=== PATIENT | male | born 1965 | race Caucasian/White ===

== ENCOUNTER 2021-03-03 17:31 | Emergency (ER) | payer MEDICARE, SELFPAY ==
[2021-03-03 17:39] VITALS: BP 158/90; PULSE 77; RESP 16; TEMP 36.9; O2SAT 99
--- NOTE | 2021-03-03 19:35 | ED.GENADULT ---
HPI - General Adult General Chief complaint: Recheck/Abnormal Lab/Rx Stated complaint: hip pain out of oxycodone Time Seen by Provider: 03/03/21 19:07 Source: patient and RN notes reviewed Mode of arrival: ambulatory Limitations: no limitations History of Present Illness HPI narrative: Patient is a 55-year-old male who presents to emergency department for evaluation of being out of his narcotic pain medication that he takes for chronic right hip pain patient is followed by Dr. Abrams who is currently in the hospital notes that the office directed him to the emergency department given that they cannot fill his medication patient has a pain contract signed with his doctor and has been on these chronic medications patient denies any other complaints or recent illness and is otherwise resting comfortably in the room in no distress Related Data Allergies Allergy/AdvReac Type Severity Reaction Status Date / Time cephalexin [From Keflex] Allergy Unknown Verified 03/03/21 18:56 diazepam [From Valium] Allergy Unknown Verified 03/03/21 18:56 Sulfa (Sulfonamide Allergy Unknown Verified 03/03/21 18:56 Antibiotics) Review of Systems Review of Systems: All systems reviewed & are unremarkable except as noted in HPI and below PMFSH Past Medical History Medical History (Updated 03/03/21 @ 19:43 by Daniel Russell PA-C) Chronic pain Tobacco abuse Surgical History Surgical History (Updated 03/03/21 @ 19:37 by Daniel Russell PA-C) History of colostomy History of orthopedic surgery Social History Social History (Updated 03/03/21 @ 19:38 by Daniel Russell PA-C) Smoking status: Current every day smoker Exam Narrative: Exam Narrative: GENERAL: Chronically ill-appearing, well-nourished, and in no acute distress. HEAD: Normocephalic, atraumatic. EYES: PERRLA and EOMI. ENT: Nares clear, no rhinorrhea or epistaxis. Mucous membranes moist. CHEST: Clear to auscultation. No respiratory distress. No wheezes rales or rhonchi HEART: Regular rate and rhythm. No murmur heard. Normal peripheral pulses. ABDOMEN: Soft, nontender, nondistended EXTREMITIES: Normal range of motion. No edema. SKIN: Warm, dry, no rash. NEURO: No focal deficits. Alert and oriented x3. Cranial nerves II through XII grossly intact PSYCH: Normal mood and affect. Course Course Emergency Course: Patient will be turned back to primary care for further evaluation is aware of discussion with primary care Vital Signs Vital signs: Vital Signs Temperature 98.5 F 03/03/21 17:39 Pulse Rate 77 03/03/21 17:39 Respiratory Rate 16 03/03/21 17:39 Blood Pressure 158/90 H 03/03/21 17:39 Pulse Oximetry 99 03/03/21 17:39 Temperature 98.5 F 03/03/21 17:39 Pulse Rate 77 03/03/21 17:39 Respiratory Rate 16 03/03/21 17:39 Blood Pressure 158/90 H 03/03/21 17:39 Pulse Oximetry 99 03/03/21 17:39 Medical Decision Making MDM Narrative Medical decision making narrative: Patient in the room in no distress aware of case findings treatment plan and diagnosis agreeing to follow-up as directed Vital Signs Vital Signs: Vital Signs Temperature 98.5 F 03/03/21 17:39 Pulse Rate 77 03/03/21 17:39 Respiratory Rate 16 03/03/21 17:39 Blood Pressure 158/90 H 03/03/21 17:39 Pulse Oximetry 99 03/03/21 17:39 Temperature 98.5 F 03/03/21 17:39 Pulse Rate 77 03/03/21 17:39 Respiratory Rate 16 03/03/21 17:39 Blood Pressure 158/90 H 03/03/21 17:39 Pulse Oximetry 99 03/03/21 17:39 Discharge Plan Discharge Clinical Impression: Encounter for medication refill Patient Disposition: Home, Self-Care Condition: Stable Instructions: Antibiotic Form, Medicine Refill (ED) Additional Instructions: Follow up with your primary care doctor tommorrow for discussion of your narcotic pain refill. Go to ER for worsening pain, nausea/vomitting, fever/chills, chest pain, shortness of breath, blood in stools or urine,
[2021-03-03] MEDS: HYDROcodone/acetaminophen (*CRX) 7.5-325 MG TABLET 1 TAB PO (19:53)
== END 2021-03-03 19:55 | disposition home or self-care (01) ==
PROVIDERS: PCP Family Medicine
DX: Z76.0 Encounter for issue of repeat prescription (principal); F17.210 Nicotine dependence, cigarettes, uncomplicated; M25.551 Pain in right hip; G89.29 Other chronic pain
CPT/HCPCS: 99283; A9270

== ENCOUNTER 2021-03-04 11:19 | Emergency (ER) | payer MEDICARE, SELFPAY ==
[2021-03-04 11:27] VITALS: BP 154/89; PULSE 85; RESP 20; TEMP 36.9; O2SAT 99
--- NOTE | 2021-03-04 12:36 | ED.GENADULT ---
HPI - General Adult General Chief complaint: Recheck/Abnormal Lab/Rx Stated complaint: pain med refill Time Seen by Provider: 03/04/21 12:08 Source: patient and RN notes reviewed Mode of arrival: ambulatory Limitations: no limitations History of Present Illness HPI narrative: Patient is a 55-year-old male with chronic health issues that notes he would like to have his narcotic pain medication filled states that his doctor is currently in the hospital he has been unable to get his pain medicine filled has all his other medicines filled was seen in the ER last night for the same thing. It was explained to the patient that he has a pain contract with his primary care and should utilize them to get this medication he has no other complaints presents per private vehicle in no distress patient takes the medicine for chronic hip pain amongst other chronic issues Related Data Home Medications Medication Instructions Recorded Confirmed buspirone mg 03/03/21 methocarbamol mg 03/03/21 omeprazole 03/03/21 ondansetron HCl 03/03/21 oxycodone-acetaminophen 03/03/21 prednisone 03/03/21 risperidone mg 03/03/21 Allergies Allergy/AdvReac Type Severity Reaction Status Date / Time cephalexin [From Keflex] Allergy Unknown Verified 03/04/21 11:35 diazepam [From Valium] Allergy Unknown Verified 03/04/21 11:35 Sulfa (Sulfonamide Allergy Unknown Verified 03/04/21 11:35 Antibiotics) Review of Systems Review of Systems: All systems reviewed & are unremarkable except as noted in HPI and below PMFSH Past Medical History Medical History Chronic pain Tobacco abuse Surgical History Surgical History History of colostomy History of orthopedic surgery Social History Social History Smoking status: Current every day smoker Exam Narrative: Exam Narrative: GENERAL: Well-appearing, well-nourished, and in no acute distress. HEAD: Normocephalic, atraumatic. EYES: PERRLA and EOMI. ENT: Nares clear, no rhinorrhea or epistaxis. Mucous membranes moist. CHEST: Clear to auscultation. No respiratory distress. No wheezes rales or rhonchi HEART: Regular rate and rhythm. No murmur heard. Normal peripheral pulses. ABDOMEN: Soft, nontender, nondistended EXTREMITIES: Normal range of motion. No edema. SKIN: Warm, dry, no rash. NEURO: No focal deficits. Alert and oriented x3. PSYCH: Normal mood and affect. Course Course Emergency Course: Patient evaluated to follow with his primary care doctor agrees to do so felt appropriate for outpatient reevaluation ABCs and vital signs intact and stable Vital Signs Vital signs: Vital Signs Temperature 98.5 F 03/04/21 11:27 Pulse Rate 85 03/04/21 11:27 Respiratory Rate 20 03/04/21 11:27 Blood Pressure 154/89 H 03/04/21 11:27 Pulse Oximetry 99 03/04/21 11:27 Temperature 98.5 F 03/04/21 11:27 Pulse Rate 85 03/04/21 11:27 Respiratory Rate 20 03/04/21 11:27 Blood Pressure 154/89 H 03/04/21 11:27 Pulse Oximetry 99 03/04/21 11:27 Medical Decision Making MDM Narrative Medical decision making narrative: Patient in the room no distress redirected to primary care for discussion of filling his pain medication Vital Signs Vital Signs: Vital Signs Temperature 98.5 F 03/04/21 11:27 Pulse Rate 85 03/04/21 11:27 Respiratory Rate 20 03/04/21 11:27 Blood Pressure 154/89 H 03/04/21 11:27 Pulse Oximetry 99 03/04/21 11:27 Temperature 98.5 F 03/04/21 11:27 Pulse Rate 85 03/04/21 11:27 Respiratory Rate 03/04/21 11:27 Blood Pressure 154/89 H 03/04/21 11:27 Pulse Oximetry 99 03/04/21 11:27 Discharge Plan Discharge Clinical Impression: Encounter for medication refill Patient Disposition: Home, Self-Care Condition: Stable Instructions: Antibiotic Form,
--- NOTE | 2021-03-04 13:00 | PC.NURSE ---
patient not found in room at this time for discharge instructions of exit vital signs.
== END 2021-03-04 13:02 | disposition home or self-care (01) ==
PROVIDERS: Emergency Provider Emergency Medicine; PCP Family Medicine
DX: M25.559 Pain in unspecified hip (principal); G89.29 Other chronic pain; F17.200 Nicotine dependence, unspecified, uncomplicated
CPT/HCPCS: 99281

== ENCOUNTER 2021-03-07 08:34 | Emergency (ER) | payer MEDICARE, SELFPAY ==
[2021-03-07 08:32] VITALS: BP 130/82; PULSE 58; RESP 18; TEMP 36.9; O2SAT 99
--- NOTE | 2021-03-07 08:42 | ED.BACK ---
HPI - Back Pain/Injury General Chief Complaint: Unspecified Stated Complaint: body pain History of Present Illness HPI Narrative: 55 yo male w/ h/o arthritis presents to the ED for pain. He reports pain throughout his entire body. This is his usual pain. He is chronically on norco. His PCP is in the hospital and has not been able to refill his prescriptions. He now has nausea, vomiting and diarrhea as well. Related Data Home Medications Medication Instructions Recorded Confirmed omeprazole 03/03/21 ondansetron HCl 03/03/21 oxycodone-acetaminophen 03/03/21 prednisone 03/03/21 Allergies Allergy/AdvReac Type Severity Reaction Status Date / Time cephalexin [From Keflex] Allergy Swelling Verified 03/07/21 08:41 of Lip/Tongue/Throat diazepam [From Valium] Allergy Depression Verified 03/07/21 08:41 Sulfa (Sulfonamide Allergy Swelling Verified 03/07/21 08:41 Antibiotics) of Lip/Tongue/Throat Review of Systems Review of Systems: All systems reviewed & are unremarkable except as noted in HPI and below Constitutional: Constitutional: Denies fever(s) ENT: Denies dizziness Cardiovascular: Cardiovascular: Denies chest pain Respiratory: Respiratory: Denies dyspnea Gastrointestinal: Gastrointestinal: Reports as per HPI Genitourinary: Genitourinary: Reports no additional male genitourinary complaints Musculoskeletal: Musculoskeletal: Reports back pain, Reports myalgias and Reports arthralgias Neurologic: Denies dizziness and Denies weakness PMF Past Medical History Medical History Chronic pain Tobacco abuse Surgical History Surgical History History of colostomy History of orthopedic surgery Social History Social History Smoking status: Current every day smoker Gender identity (if verbalized by the patient): Male Exam Const: General: no acute distress and alert Orientation/consciousness: patient oriented x3 HENMT: Head: normal to inspection Neck: Neck: normal visual inspection Resp: Effort & Inspection: normal respiratory effort Auscultation: clear to auscultation bilaterally Cardio: Rate: regular rate Rhythm: regular rhythm GI: Inspection: non-distended Auscultation: Hyperactive bowel sounds present Skin: General skin exam: normal color Neuro: General: patient oriented x3 and moves all extremities Speech: normal speech Extrem: Other: extensive severe arthritis Course Vital Signs Vital signs: Vital Signs Temperature 36.9 C 03/07/21 08:32 Pulse Rate 58 L 03/07/21 08:32 Respiratory Rate 18 03/07/21 08:32 Blood Pressure 130/82 03/07/21 08:32 Pulse Oximetry 99 03/07/21 08:32 Temperature 36.9 C 03/07/21 08:32 Pulse Rate 88 03/07/21 11:55 Respiratory Rate 18 03/07/21 11:55 Blood Pressure 124/72 03/07/21 11:55 Pulse Oximetry 99 03/07/21 11:55 MDM - Back Pain/Injury MDM Narrative Medical decision making narrative: He has severe arthritis. I can confirm that his PCP is unavailable and not refilling prescriptions. On the registry it does not appear that he is getting them elsewhere. He is currently in withdrawal. I will provide a short term supply at a lower frequency to prevent withdrawal and give some relief. Medical Records Attestation: I reviewed the patient's medical records. Discharge Plan Discharge Clinical Impression: Arthritis Patient Disposition: Home, Self-Care Condition: Stable Instructions: Arthritis (ED) Prescriptions: New hydrocodone-acetaminophen 10-325 mg tablet 1 tablet PO Q6H PRN (Reason: pain) Qty: 1 RF: 0 hydrocodone-acetaminophen 10-325 mg tablet 1 tablet PO .q8 PRN (Reason: pain) Qty: 20 RF: 0 No Action ondansetron HCl 4 mg tablet RF: 0 prednisone 5 mg tablet RF: 0 oxy
[2021-03-07] MEDS: SODIUM CHLORIDE 0.9% IV 1,000 ML 999 ML IV CONT (09:03)
[2021-03-07] MEDS: ONDANSETRON INJ 4 MG/2 ML VIAL IV PUSH (09:03)
[2021-03-07] MEDS: HYDROcodone/acetaminophen (*CRX) 10-325 MG TABLET 1 TAB PO (09:04)
[2021-03-07 10:35] VITALS: BP 125/91; PULSE 59; RESP 16; O2SAT 100
[2021-03-07 11:55] VITALS: BP 124/72; PULSE 88; RESP 18; O2SAT 99
== END 2021-03-07 12:07 | disposition home or self-care (01) ==
PROVIDERS: Emergency Provider Emergency Medicine; PCP Family Medicine
DX: M19.90 Unspecified osteoarthritis, unspecified site (principal); G89.29 Other chronic pain; F17.200 Nicotine dependence, unspecified, uncomplicated
CPT/HCPCS: 96361; 96374; 99284; A9270; J2405; J7030

== ENCOUNTER 2021-03-11 02:14 | Emergency (ER) | payer MEDICARE, SELFPAY ==
[2021-03-11 02:23] VITALS: BP 147/83; PULSE 70; RESP 20; TEMP 36.6; O2SAT 100
--- NOTE | 2021-03-11 02:24 | ED.GENADULT ---
HPI - General Adult General Chief complaint: Unspecified Stated complaint: pain all over - need hydrocodone refilled Time Seen by Provider: 03/11/21 02:16 History of Present Illness HPI narrative: 55 yo male with h/o chronic pain due to arthritis presents to the ED for a medication refill. His PCP has been out of the office and unable to fill prescriptions. I saw him 3 days ago and gave him a 1 week supply. he now returns having taken all of them. Related Data Home Medications Medication Instructions Recorded Confirmed omeprazole 03/03/21 ondansetron HCl 03/03/21 oxycodone-acetaminophen 03/03/21 prednisone 03/03/21 Allergies Allergy/AdvReac Type Severity Reaction Status Date / Time cephalexin [From Keflex] Allergy Swelling Verified 03/07/21 08:41 of Lip/Tongue/Throat diazepam [From Valium] Allergy Depression Verified 03/07/21 08:41 Sulfa (Sulfonamide Allergy Swelling Verified 03/07/21 08:41 Antibiotics) of Lip/Tongue/Throat Review of Systems Review of Systems: All systems reviewed & are unremarkable except as noted in HPI and below PMFSH Past Medical History Medical History Chronic pain Tobacco abuse Surgical History Surgical History History of colostomy History of orthopedic surgery Social History Social History Smoking status: Current every day smoker Gender identity (if verbalized by the patient): Male Exam Const: General: no acute distress, alert and awake Nutritional Appearance: thin Orientation/consciousness: patient oriented x3 HENMT: Head: normal to inspection Eyes: General: appearance normal, both eyes and all related structures Resp: Effort & Inspection: normal respiratory effort Skin: General skin exam: normal color Wounds: no wounds Extrem: Other: severe arthritis Course Vital Signs Vital signs: Vital Signs Temperature 36.6 C 03/11/21 02:23 Pulse Rate 70 03/11/21 02:23 Respiratory Rate 20 03/11/21 02:23 Blood Pressure 147/83 H 03/11/21 02:23 Pulse Oximetry 100 03/11/21 02:23 Temperature 36.6 C 07/29/21 02:23 Pulse Rate 64 03/11/21 02:40 Respiratory Rate 14 03/11/21 02:40 Blood Pressure 133/85 03/11/21 02:40 Pulse Oximetry 100 03/11/21 02:40 Medical Decision Making MDM Narrative Medical decision making narrative: He is narcotic dependent. I prescribed a small supply at less than his usual dose to help prevent withdrawal and provide some relief until his PCP is able to resume his prescription. He took more than I prescribed. I will not be providing any further prescriptions. Medical Records Medical records reviewed: Yes I reviewed the external patient's medical records. Vital Signs Vital Signs: Vital Signs Temperature 36.6 C 03/11/21 02:23 Pulse Rate 70 03/11/21 02:23 Respiratory Rate 20 03/11/21 02:23 Blood Pressure 147/83 H 03/11/21 02:23 Pulse Oximetry 100 03/11/21 02:23 Temperature 36.6 C 03/11/21 02:23 Pulse Rate 64 03/11/21 02:40 Respiratory Rate 14 03/11/21 02:40 Blood Pressure 133/85 03/11/21 02:40 Pulse Oximetry 100 03/11/21 02:40 Discharge Plan Discharge Clinical Impression: Chronic pain Patient Disposition: Home, Self-Care Condition: Stable Instructions: Chronic Pain (ED) Prescriptions: No Action hydrocodone-acetaminophen 10-325 mg tablet 1 tablet PO Q6H PRN (Reason: pain) Qty: 1 RF: 0 hydrocodone-acetaminophen 10-325 mg tablet 1 tablet PO .q8 PRN (Reason: pain) Qty: 20 RF: 0 ondansetron HCl 4 mg tablet RF: 0 prednisone 5 mg tablet RF: 0 oxycodone-acetaminophen 10-325 mg tablet RF: 0 omeprazole 20 mg capsule,delayed release(DR/EC) RF: 0 Follow-up/Referrals: Jose Alberto,Darshana Ty MD [Non-Staff] -
[2021-03-11 02:40] VITALS: BP 133/85; PULSE 64; RESP 14; O2SAT 100
== END 2021-03-11 02:40 | disposition home or self-care (01) ==
PROVIDERS: Emergency Provider Emergency Medicine
DX: G89.29 Other chronic pain (principal); F17.200 Nicotine dependence, unspecified, uncomplicated; M19.90 Unspecified osteoarthritis, unspecified site
CPT/HCPCS: 99281

== ENCOUNTER 2021-05-07 15:23 | Emergency (ER) | payer MEDICARE, SELFPAY ==
--- NOTE | ~2021-05-07 | XR_ITS ---
EXAMINATION: XR ankle LT min 3V DATE: 05/07/2021 21:07 INDICATION: Posterior left ankle pain and swelling TECHNIQUE: Anteroposterior, oblique, mortise, and lateral views of the left ankle were obtained. COMPARISON: None. FINDINGS: No fracture. Pes planus with severe osteoarthritis at the talonavicular and calcaneocuboid joints. Mi ld tibiotalar osteoarthritis and at the profiled portion of the subtalar joint. No cortical erosions. No ankle joint effusion. Diffuse osteopenia. IMPRESSION: 1. 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 Reviewed, dictated and finalized at location A.
--- NOTE | ~2021-05-07 | CT_ITS ---
EXAMINATION: CT abdomen pelvis w con DATE: 05/07/2021 21:14 INDICATION: Nausea, vomiting and abdominal pain. TECHNIQUE: Computed tomography (CT) of the abdomen and pelvis was performed with 100 mL Omnipaque-350 intravenous contrast. Automated exposure control and iterative reconstruction technique were employe d. The dose-length product was 242.97 mGy-cm. COMPARISON: None FINDINGS: Mild emphysema at the lung bases. Heart size is normal. Atherosclerotic coronary artery calcific loca tion. No pericardial or pleural effusion. Liver, gallbladder, spleen, pancreas, bilateral adrenal gla nds and kidneys are normal. Bladder is normal. Short segment of small bowel extends into a small dire ct right inguinal hernia. Left lower quadrant ostomy. No dilated bowel to suggest obstruction. No raiza e intraperitoneal gas or fluid. No pathologically enlarged abdominal or pelvic lymphadenopathy. There is calcified atherosclerosis of the aorta and many of the other arteries. Likely ankylosing spondyli tis with bridging syndesmophytes at the visualized lower thoracic and upper lumbar spine, ankylosis a cross the bilateral sacroiliac joints and multiple thoracic and lumbar facet joints. Advanced osteoar thritis at the right hip and mild osteoarthritis at the left hip. IMPRESSION: 1. Small right direct inguinal hernia containing short segment of nonobstructed small bowel. 2. Skeletal findings as detailed above consistent with ankylosing spondylitis. Reviewed, dictated and finalized at location A.
[2021-05-07 15:49] VITALS: BP 131/77; PULSE 73; RESP 18; TEMP 36.8; O2SAT 100
[2021-05-07 17:31] LABS: Basophils Absolute Auto 0.1 K/mm3 (0.0-0.1); Basophils Percent Auto 1.1 % (0.2-1.2); Eosinophils Absolute Auto 0.8 K/mm3 (0-0.3); Eosinophils Percent Auto 9.8 % (0-4.4); Hemoglobin 12.3 g/dL (14.0-18.0); Immature Granulocyte Absolute 0.02 K/mm3 (0.00-0.031); Immature Granulocyte Percent A 0.2 % (0-0.5); Lymphocytes Absolute Auto 1.37 K/mm3 (0.9-3.2); Lymphocytes Percent Auto 16.5 % (18.3-44.2); Mean Corpuscular HGB Conc 31.5 g/dl (32-36); Mean Corpuscular Hemoglobin 30.1 pg (26-34); Mean Corpuscular Volume 95.6 fl (80-100); Mean Platelet Volume 10.4 fl (7.4-10.4); Monocytes Absolute Auto 0.5 K/mm3 (0.1-0.6); Monocytes Percent Auto 5.4 % (2.6-8.5); Neutrophils Absolute Auto 5.5 K/mm3 (1.3-6.7); Platelet Count Result 290 k/mm3 (150-375); Red Blood Count 4.08 M/mm3 (4.6-6.20); Red Cell Distribution Width 14.4 % (11.5-14.5); White Blood Count 8.3 K/mm3 (4.5-10.0)
[2021-05-07 17:40] LABS: Alanine Aminotransferase 15 U/L (4-50); Albumin Level 4.7 g/dL (3.5-5.1); Alkaline Phosphatase 91 U/L (38-126); Anion Gap 10 mmol/L (8-16); Aspartate Amino Transferase 21 U/L (17-59); Bilirubin,Total 0.5 mg/dL (0.2-1.3); Blood Urea Nitrogen 17 mg/dL (9-20); Calcium 9.8 mg/dL (8.4-10.2); Carbon Dioxide 29 mmol/L (22-30); Chloride 104 mmol/L (98-107); Estimated CRCL calculation 88 ml/min; Estimated Glomerular Filt Rate > 60; Glucose 77 mg/dL (65-110); Lipase 78 U/L (23-300); Potassium 3.9 mmol/L (3.4-5.0); Sodium 143 mmol/L (137-145)
[2021-05-07 17:55] LABS: Add Urine Microscopic? NO; Appearance Urine Clear (Clear); Bilirubin Urine Negative (Negative); Blood Urine Negative (Negative); Color Urine Yellow (Yellow); Glucose Urine UA Negative (Negative); Ketones Urine Negative (Negative); Leukocyte Esterase Ur Negative LEU/UL (Negative); Nitrate Urine Negative (Negative); Protein Urine Negative (Negative); Specific Grav Ur 1.014 (1.001-1.035); Urobilinogen Urine Negative mg/dL (<2.0)
--- NOTE | 2021-05-07 21:17 | PC.NURSE ---
colostomy bag applied.
--- NOTE | 2021-05-07 21:23 | ED.GENADULT ---
HPI - General Adult General Chief complaint: Nausea/Vomiting/Diarrhea Stated complaint: dizziness/vomiting Time Seen by Provider: 05/07/21 19:56 Source: patient Mode of arrival: EMS Limitations: no limitations History of Present Illness HPI narrative: Patient with history of 2 colon surgeries and colostomy presents with chief complaint of nausea vomiting for 2 days. Patient reports that he ran out of colostomy bags. patient states that he is also having diffuse abdominal pain. Patient reports being diagnosed with a urinary tract infection 1 week ago at [place]. Patient is also upset because his primary care provider stopped his oxycodone and his xanax prescriptions. He states he has pain all over from rheumatoid arthritis and wants his medications back. He also reports pain to his left ankle with mild swelling. He denies recent falls. Related Data Home Medications Medication Instructions Recorded Confirmed omeprazole 03/03/21 ondansetron HCl 03/03/21 oxycodone-acetaminophen 03/03/21 prednisone 03/03/21 Allergies Allergy/AdvReac Type Severity Reaction Status Date / Time cephalexin [From Keflex] Allergy Swelling Verified 03/07/21 08:41 of Lip/Tongue/Throat diazepam [From Valium] Allergy Depression Verified 03/07/21 08:41 Sulfa (Sulfonamide Allergy Swelling Verified 03/07/21 08:41 Antibiotics) of Lip/Tongue/Throat Review of Systems Review of Systems: CONSTITUTIONAL: Denies fever, chills, or sweats. EYES: Denies visual changes, redness, or discharge. ENT: Denies rhinorrhea, congestion, sore throat, or otalgia. CARDIOVASCULAR: Denies chest pain, palpitations, or edema. RESPIRATORY: Denies cough or dyspnea. GASTROINTESTINAL: Reports abdominal pain, nausea, vomiting declines diarrhea. GENITOURINARY: Denies dysuria or hematuria. SKIN: Denies rash or itching. MUSCULOSKELETAL: Reports left ankle pain denies back pain, joint pain, or myalgia. NEUROLOGIC: Denies headache, numbness, dizziness, or weakness. PSYCHIATRIC: Denies anxiety or depression. [facility] Past Medical History Medical History Chronic pain Tobacco abuse Surgical History Surgical History History of colostomy History of orthopedic surgery Social History Social History Smoking status: Current every day smoker Gender identity (if verbalized by the patient): Male Exam Narrative: GENERAL: unkempt, well-nourished, and in no acute distress. HEAD: Normocephalic, atraumatic. EYES: PERRLA and EOMI. CHEST: Clear to auscultation. No respiratory distress. No wheezes rales or rhonchi HEART: Regular rate and rhythm. No murmur heard. Normal peripheral pulses. ABDOMEN: Soft, nontender, nondistended, normal active bowel sounds. Colostomy noted to left side of abdomen. With grocery bag on top. EXTREMITIES: Normal range of motion. Mild swelling vs chronically deformed left ankle/foot. No erythema or signs of acute injury. Onychomycosis of nails. SKIN: Warm, dry, no rash. NEURO: No focal deficits. Alert and oriented x3. PSYCH: Normal mood and affect. Course Vital Signs Vital signs: Vital Signs Temperature 98.2 F 05/07/21 15:49 Pulse Rate 73 05/07/21 15:49 Respiratory Rate 18 05/07/21 15:49 Blood Pressure 131/77 05/07/21 15:49 Pulse Oximetry 100 05/07/21 15:49 Temperature 98.2 F 05/07/21 15:49 Pulse Rate 73 05/07/21 15:49 Respiratory Rate 18 05/07/21 15:49 Blood Pressure 131/77 05/07/21 15:49 Pulse Oximetry 100 05/07/21 15:49 Medical Decision Making MDM Narrative Medical decision making narrative: Patient is sleeping upon my entering of the room. When he wakes he demands morphine. Patient's physical exam is not consistent with the need for morphine. His complaints are inconsistent. He rambles about how his chronic pain
[2021-05-07 22:19] VITALS: BP 129/71; PULSE 72; RESP 18; O2SAT 99
== END 2021-05-07 22:24 | disposition home or self-care (01) ==
PROVIDERS: Emergency Provider Emergency Medicine
DX: Z76.5 Malingerer [conscious simulation] (principal); Z93.3 Colostomy status; M06.9 Rheumatoid arthritis, unspecified; F17.200 Nicotine dependence, unspecified, uncomplicated; M19.072 Primary osteoarthritis, left ankle and foot; K40.90 Unilateral inguinal hernia, without obstruction or gangrene, not specified as recurrent; M16.0 Bilateral primary osteoarthritis of hip; M21.42 Flat foot [pes planus] (acquired), left foot
CPT/HCPCS: 36415; 73610; 74177; 80053; 81003; 83690; 85025; 99284; Q9967

== ENCOUNTER 2022-05-25 13:20 | Emergency (ER) | payer MEDICARE, SELFPAY ==
--- NOTE | ~2022-05-25 | CT_ITS ---
EXAMINATION: CT abdomen pelvis w con DATE: 05/25/2022 14:51 INDICATION: Abdominal pain. Decreased colostomy output TECHNIQUE: Computed tomography (CT) of the abdomen and pelvis was performed with 100 mL Omnipaque-350 intravenous contrast. Automated exposure control and iterative reconstruction technique were employe d. The dose-length product was 283.14 mGy-cm. COMPARISON: 05/07/2021 FINDINGS: Mild emphysema. Consolidation in the superior segment of the left upper lobe. Numerous tiny centrilob ular nodules with tree-in-bud pattern in the dependent aspect of the bilateral lower lobes consistent with endobronchial spread of disease. There is also mucous plugging of multiple bronchi in the right lower lobe. Heart size is normal. Atherosclerotic coronary artery calcification. No pericardial or p leural effusion. Enlargement of the central pulmonary arteries consistent with pulmonary arterial hyp ertension. Visualized portion of the thoracic aorta is normal in caliber. Liver, gallbladder, spleen, pancreas, bilateral adrenal glands are normal. Bilateral nonobstructing nephrolithiasis with at leas t 7 stones in the right kidney measuring up to 6 mm and a 1 mm stone in upper pole calyx of the left kidney. No hydronephrosis. Decompressed bladder is unremarkable. Moderate amount of stool scattered t hroughout the colon. Left lower quadrant ostomy. No dilated bowel to suggest obstruction. No abscess or free intraperitoneal gas or fluid. Moderate left and advanced right hip osteoarthritis. Bridging s yndesmophytes as well as ankylosis across the posterior elements from the midthoracic through the mid lumbar spine and ankylosis at the bilateral sacroiliac joints, all consistent with ankylosing spondy litis. IMPRESSION: 1. Consolidation in the superior segment of the left lower lobe and tree-in-bud opacities in the bila teral lower lobes consistent with endobronchial spread of disease suggests aspiration or pneumonia. R ecommend chest CT follow-up in 2-6 months to document resolution. 2. Mild emphysema. 3. Bilateral nonobstructing nephrolithiasis. 4. Skeletal findings consistent with ankylosing spondylitis. Reviewed, dictated and finalized at location B. IMPRESSION: 1. Consolidation in the superior segment of the left lower lobe and tree-in-bud opacities in the bilateral lower lobes consistent with endobronchial spread of disease suggests aspiration or pneumonia. Recommend chest CT follow-up in 2-6 months to document resolution. 2. Mild emphysema. 3. Bilateral nonobstructing nephrolithiasis. 4. Skeletal findings consistent with ankylosing spondylitis.
--- NOTE | ~2022-05-25 | US_ITS ---
EXAMINATION: US scrotum doppler DATE: 05/25/2022 14:47 INDICATION: Testicular pain. TECHNIQUE: Grayscale and Doppler ultrasound images of the testes were obtained. COMPARISON: None. FINDINGS: The right testis measures 4.8 x 3.5 x 2.6 cm. The left testis measures 3.1 x 3.9 x 1.9 cm. 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 There is normal vascular flow to both testes. The righ t epididymis is normal with normal vascular flow. The left epididymis is normal with normal vascular flow. There is no varicocele or hydrocele. IMPRESSION: 1. No etiology for the patient's symptoms. Reviewed, dictated and finalized at location A.
[2022-05-25 13:22] VITALS: BP 109/81; PULSE 76; RESP 20; TEMP 36.6; O2SAT 99
[2022-05-25 13:39] LABS: Basophils Absolute Auto 0.1 K/mm3 (0.0-0.1); Eosinophils Absolute Auto 0.4 K/mm3 (0-0.3); Eosinophils Percent Auto 4.4 % (0-4.4); Hematocrit 37.2 % (42.0-52.0); Hemoglobin 11.4 g/dL (14.0-18.0); Immature Granulocyte Absolute 0.02 K/mm3 (0.00-0.031); Immature Granulocyte Percent A 0.2 % (0-0.5); Lymphocytes Absolute Auto 1.23 K/mm3 (0.9-3.2); Lymphocytes Percent Auto 14.9 % (18.3-44.2); Mean Corpuscular HGB Conc 30.6 g/dl (32-36); Mean Corpuscular Volume 87.9 fl (80-100); Mean Platelet Volume 9.7 fl (7.4-10.4); Monocytes Absolute Auto 0.2 K/mm3 (0.1-0.6); Monocytes Percent Auto 2.9 % (2.6-8.5); Neutrophils Absolute Auto 6.3 K/mm3 (1.3-6.7); Neutrophils Percent Auto 76.6 % (45.5-73.1); Platelet Count Result 268 k/mm3 (150-375); Red Blood Count 4.23 M/mm3 (4.6-6.20); Red Cell Distribution Width 15.7 % (11.5-14.5); White Blood Count 8.2 K/mm3 (4.5-10.0)
[2022-05-25 13:50] LABS: Alanine Aminotransferase 13 U/L (6-50); Albumin Level 3.6 g/dL (3.5-5.1); Alkaline Phosphatase 89 U/L (38-126); Anion Gap 11 mmol/L (8-16); Aspartate Amino Transferase 16 U/L (17-59); Bilirubin,Total 0.2 mg/dL (0.2-1.3); Blood Urea Nitrogen 15 mg/dL (9-20); Calcium 8.7 mg/dL (8.4-10.2); Carbon Dioxide 29 mmol/L (22-30); Chloride 101 mmol/L (98-107); Estimated CRCL calculation 119 ml/min; Estimated Glomerular Filt Rate > 60; Glucose 104 mg/dL (65-110); Lipase 30 U/L (23-300); Potassium 4.2 mmol/L (3.4-5.0); Sodium 141 mmol/L (137-145)
[2022-05-25 13:56] VITALS: BP 109/74; PULSE 70; RESP 17; O2SAT 99
--- NOTE | 2022-05-25 14:22 | ED.ABDPAIN ---
HPI - Abdominal Pain General Chief Complaint: Abdominal Pain Stated Complaint: abd/scrotal pain Time Seen by Provider: 05/25/22 13:58 History of Present Illness HPI narrative: Patient is a 57-year-old male with a history of schizoaffective disorder, multiple colon surgeries with colostomy bag, chronic malnutrition presenting with abdominal and genital pain. Patient states that for the last 3 days he has had diffuse abdominal pain as well as decreased output from his colostomy. States he has had decreased appetite and has not really been eating. Endorses nausea but no vomiting. States for the last 3 days he has also had pain in his penis and testicles. Patient is a poor historian so unclear if he has been having difficulty with urination. He denies headache, chest pain, shortness of breath, cough. Related Data Home Medications Medication Instructions Recorded Confirmed omeprazole 20 mg capsule,delayed 03/03/21 release ondansetron HCl 4 mg tablet 03/03/21 oxycodone-acetaminophen 10 mg-325 03/03/21 mg tablet prednisone 5 mg tablet 03/03/21 Allergies Allergy/AdvReac Type Severity Reaction Status Date / Time cephalexin [From Keflex] Allergy Swelling Verified 03/07/21 08:41 of Lip/Tongue/Throat diazepam [From Valium] Allergy Depression Verified 03/07/21 08:41 Sulfa (Sulfonamide Allergy Swelling Verified 03/07/21 08:41 Antibiotics) of Lip/Tongue/Throat Review of Systems Review of Systems: ROS unobtainable: Yes unobtainable due to mental status (unreliable historian 2/2 schizoaffective disorder ) PMFSH Past Medical History Medical History Chronic pain Tobacco abuse Surgical History Surgical History History of colostomy History of orthopedic surgery Social History Social History Smoking status: Current every day smoker Gender identity (if verbalized by the patient): Male Exam Narrative: GENERAL: frail, very thin, appears chronically ill with contractures of all extremities HEAD: Normocephalic, atraumatic. EYES: PERRLA and EOMI. ENT: Nares clear, no rhinorrhea or epistaxis. Mucous membranes dry NECK: Supple. CHEST: Clear to auscultation. No respiratory distress. HEART: Regular rate and rhythm. No murmur heard. Normal peripheral pulses. ABDOMEN: colostomy bag in place with small amount of dark brown stool : penis slightly engorged, testicles without erythema or significant tenderness EXTREMITIES: Normal range of motion. No edema. SKIN: Warm, dry, no rash. NEURO: No focal deficits. Alert and oriented x3. PSYCH: Normal mood and affect. Course Course Emergency Course: Patient is a 57-year-old male presenting with abdominal and genital pain. Vitals are within normal limits. Patient appears chronically ill but is nontoxic today. Exam is remarkable for the above. Plan for CT abdomen pelvis as well as a Doppler of his scrotum. Will check labs, urine. Blood work and urine are unremarkable. CT abdomen pelvis shows evidence of aspiration in bilateral lungs. Patient does not complain of respiratory symptoms and his vitals are within normal limits but we will go ahead and treat with Augmentin. Ultrasound of the patient's scrotum shows no acute abnormalities. The patient's penis is completely detumesced. He no longer is complaining of groin pain. Has been resting comfortably while in the department. Feel patient is safe to be discharged home with outpatient antibiotics and follow-up. Appropriate return precautions were given. Patient discharged in stable condition. Vital Signs Vital signs: Vital Signs Temperature 98 F 05/25/22 13:22 Pulse Rate 76 05/25/22 13:22 Respiratory Rate 20 05/25/22 13:22 Blood Pressure 109/81 05/25/22 13:22 Pulse Oximetry 99 05/25/22 13:22 Oxygen Delivery
[2022-05-25 14:34] LABS: Add Urine Microscopic? YES; Appearance Urine Cloudy (Clear); Bilirubin Urine Negative (Negative); Blood Urine Negative (Negative); Color Urine Yellow (Yellow); Glucose Urine UA Negative (Negative); Ketones Urine Negative (Negative); Leukocyte Esterase Ur Negative LEU/UL (Negative); Mucus Urine Rare /lpf; Nitrate Urine Negative (Negative); Protein Urine Negative (Negative); RBC Urine 0-2 /hpf (0-2); Specific Grav Ur 1.014 (1.001-1.035); Urobilinogen Urine Negative mg/dL (<2.0); WBC Urine 0-3 /hpf
--- NOTE | 2022-05-25 14:34 | PC.NURSE ---
Pt to CT scan via stretcher at this time.
[2022-05-25] MEDS: ONDANSETRON INJ 4 MG/2 ML VIAL IV PUSH (14:49)
[2022-05-25] MEDS: fentaNYL CITRATE INJ (*CRX) 100 MCG/2 ML VIAL 50 MCG IV PUSH (14:49)
[2022-05-25] MEDS: SODIUM CHLORIDE 0.9% IV 1,000 ML 999 ML IV CONT (14:50)
[2022-05-25 16:54] VITALS: BP 106/66; PULSE 70; RESP 18; O2SAT 99
[2022-05-25 18:27] VITALS: BP 101/67; PULSE 75; RESP 15; O2SAT 100
[2022-05-25] MEDS: AMOXICILLIN/CLAVULANATE K 875-125 MG TAB 1 TABLET PO (18:27)
--- NOTE | 2022-05-25 19:48 | PC.NURSE ---
[facility] here
== END 2022-05-25 19:50 | disposition home or self-care (01) ==
PROVIDERS: Emergency Provider Emergency Medicine
DX: T17.918A Gastric contents in respiratory tract, part unspecified causing other injury, initial encounter (principal); E46 Unspecified protein-calorie malnutrition; Z68.1 Body mass index [BMI] 19.9 or less, adult; Z93.3 Colostomy status; F17.200 Nicotine dependence, unspecified, uncomplicated; N50.812 Left testicular pain; N50.811 Right testicular pain; J43.9 Emphysema, unspecified; N20.0 Calculus of kidney
CPT/HCPCS: 36415; 51701; 74177; 76870; 80053; 81001; 83690; 85025; 93976; 96361; 96374; 96375; 99284; A9270; J2405; J3010; J7030; Q9967

== ENCOUNTER 2022-05-27 22:58 | Emergency (ER) | payer MEDICARE, SELFPAY ==
[2022-05-27] VITALS (9 sets, daily range): BP systolic 107–126; BP diastolic 79–87; PULSE 70–81; RESP 16–29; TEMP 36.7; O2SAT 92–100
--- NOTE | ~2022-05-27 | CT_ITS ---
EXAMINATION: CTA chest PE protocol DATE: 05/28/2022 01:18 INDICATION: Chest pain. Shortness of breath. TECHNIQUE: Computed tomography angiography (CTA) of the chest was performed with 100 mL Omnipaque-350 intravenous contrast timed to evaluate the pulmonary arteries. Coronal maximum intensity projection 3D-reconstructions were created by the technologist. Automated exposure control and iterative reconst ruction technique were employed. The dose-length product was 388.30 mGy-cm. COMPARISON: CT abdomen and pelvis 05/25/2022 FINDINGS: There is moderate emphysema. There is mild scarring in the upper lobes. There are airspace opacities in superior segment left lower lobe with air bronchograms. There are tree-in-bud opacities and centrilobular nodules in the lower lobes. Calcified bilateral lung nodules are consistent with ol d granulomatous disease. No pleural effusion. The heart size is normal. There are coronary artery ariana cifications. No pericardial effusion. There is no pulmonary embolus. There is anterior fusion and pos terior fusion at most levels of the spine, consistent with ankylosing spondylitis. IMPRESSION: 1. No pulmonary embolus. 2. Pneumonia involving the lower lobes, left worse than right, stable from 05/25/2022. 3. Moderate emphysema. Reviewed, dictated and finalized at location A. IMPRESSION: 1. No pulmonary embolus. 2. Pneumonia involving the lower lobes, left worse than right, stable from 05/14. 3. Moderate emphysema.
--- NOTE | ~2022-05-27 | XR_ITS ---
EXAMINATION: XR chest 1V portable DATE: 05/28/2022 00:17 INDICATION: Chest pain. TECHNIQUE: A single frontal view of the chest was obtained. COMPARISON: Chest CT 05/28/2022 FINDINGS: There are lucencies in the lungs, consistent with emphysema. Calcified pulmonary nodules ar e consistent with old granulomatous disease. There are nodules in the lower lobes. No pleural effusio n or pneumothorax. The heart size is normal. IMPRESSION: 1. Nodules in the lower lobes, consistent with pneumonia. 2. Emphysema. Reviewed, dictated and finalized at location A.
--- NOTE | 2022-05-27 23:04 | ECG_ITS ---
Measurements Intervals [place] Rate: 78 P: 73 [place]: 152 QRS: 80 QRSD: 94 T: 77 QT: 373 QTc: 425 Interpretive Statements SINUS RHYTHM WITH OCCASIONAL SUPRAVENTRICULAR PREMATURE COMPLEXES VOLTAGE CRITERIA FOR LVH ABNORMAL ECG NO PREVIOUS ECG AVAILABLE FOR COMPARISON Electronically Signed On 05-28-2022 15:16:03 CDT by Carlos Quintero M.D.
--- NOTE | 2022-05-27 23:10 | ED.CHESTPAIN ---
HPI - Chest Pain General Chief Complaint: Chest Pain <AURE Álvarez Last Filed: 05/28/22 02:43> Stated Complaint: CHEST PAIN <AURE Álvarez Last Filed: 05/28/22 02:43> Time Seen by Provider: 05/27/22 23:05 <AURE Álvarez Last Filed: 05/28/22 02:43> Source: patient <AURE Álvarez Last Filed: 05/28/22 02:43> Mode of arrival: EMS <AURE Álvarez Last Filed: 05/28/22 02:43> Limitations: no limitations <AURE Álvarez Last Filed: 05/28/22 02:43> History of Present Illness HPI narrative: This is a 57 year old male that presents to the ER for chest pain. Ongoing over the last couple of hours. Reports the pain is sharp and intermittent in nature. No known alleviating or exacerbating factors. Reports he was recently seen at our facility and discharged on antibiotics for aspiration pneumonia. Reports mild shortness of breath. Denies fevers. <AURE Álvarez Last Filed: 05/28/22 02:43> Related Data Home Medications: Home Medications Medication Instructions Recorded Confirmed omeprazole 20 mg capsule,delayed 03/03/21 release ondansetron HCl 4 mg tablet 03/03/21 oxycodone-acetaminophen 10 mg-325 03/03/21 mg tablet prednisone 5 mg tablet 03/03/21 <AURE Álvarez Last Filed: 05/28/22 02:43> Allergies/Adverse Reactions: Allergies Allergy/AdvReac Type Severity Reaction Status Date / Time cephalexin [From Keflex] Allergy Swelling Verified 05/27/22 23:04 of Lip/Tongue/Throat diazepam [From Valium] Allergy Depression Verified 05/27/22 23:04 peanut Allergy Other Verified 05/27/22 23:04 Sulfa (Sulfonamide Allergy Swelling Verified 05/27/22 23:04 Antibiotics) of Lip/Tongue/Throat <AURE Álvarez Last Filed: 05/28/22 02:43> Review of Systems Review of Systems: CONSTITUTIONAL: Denies fever CARDIOVASCULAR: Reports chest pain. Denies edema. RESPIRATORY: Reports dyspnea. <Shiloh Woodson PA-C - Last Filed: 05/28/22 02:43> All systems reviewed & are unremarkable except as noted in HPI and below <Shiloh Woodson PA-C - Last Filed: 05/28/22 02:43> [facility] Past Medical History Medical History: Medical History (Updated 05/29/22 @ 00:00 by Background Daalbino) Chronic pain History of gastroesophageal reflux (GERD) Tobacco abuse <Shiloh Woodson PA-C - Last Filed: 05/28/22 02:43> Surgical History Surgical History: Surgical History History of colostomy History of orthopedic surgery <Shiloh Woodson PA-C - Last Filed: 05/28/22 02:43> Social History Social History: Social History Smoking status: Current every day smoker Gender identity (if verbalized by the patient): Male <Shiloh Woodson PA-C - Last Filed: 05/28/22 02:43> Exam Narrative: GENERAL: Chronically ill-appearing, thin, and in no acute distress. HEAD: Normocephalic, atraumatic. EYES: EOMI. CHEST: Clear to auscultation. No respiratory distress. No wheezes rales or rhonchi HEART: Regular rate and rhythm. No murmur heard. Normal peripheral pulses. EXTREMITIES: Normal range of motion. No edema. SKIN: Warm, dry, no rash. NEURO: No focal deficits. Alert and oriented x3. PSYCH: Normal mood and affect <Shiloh Woodson PA-C - Last Filed: 05/28/22 02:43> Course FUEL AGENT/PA Physician Supervision For this patient encounter, I reviewed the FUEL AGENT or PA documentation, treatment plan, and medical decision making. I was available for consultation as needed. <Janene Kilpatrick MD - Last Filed: 05/29/22 02:38> Vital Signs Vital signs: Vital Signs Temperature 98.0 F 05/27/22 22:57 Pulse Rate 76 05/27/22 22:57 Respiratory Rate 18 05/27/22 22:57 Blood Pressure 121/81 05/27/22 22:57 Pulse Oximetry 100 05/27/22 22:57 Oxygen Delivery Room Air 10
[2022-05-27 23:18] LABS: Basophils Absolute Auto 0.1 K/mm3 (0.0-0.1); Basophils Percent Auto 0.8 % (0.2-1.2); Eosinophils Absolute Auto 0.6 K/mm3 (0-0.3); Eosinophils Percent Auto 8.3 % (0-4.4); Hematocrit 35.8 % (42.0-52.0); Hemoglobin 10.9 g/dL (14.0-18.0); Immature Granulocyte Absolute 0.02 K/mm3 (0.00-0.031); Immature Granulocyte Percent A 0.3 % (0-0.5); Lymphocytes Absolute Auto 2.12 K/mm3 (0.9-3.2); Lymphocytes Percent Auto 27.5 % (18.3-44.2); Mean Corpuscular HGB Conc 30.4 g/dl (32-36); Mean Corpuscular Volume 88.8 fl (80-100); Mean Platelet Volume 9.8 fl (7.4-10.4); Monocytes Absolute Auto 0.4 K/mm3 (0.1-0.6); Monocytes Percent Auto 4.5 % (2.6-8.5); Neutrophils Absolute Auto 4.5 K/mm3 (1.3-6.7); Neutrophils Percent Auto 58.6 % (45.5-73.1); Platelet Count Result 285 k/mm3 (150-375); Red Blood Count 4.03 M/mm3 (4.6-6.20); Red Cell Distribution Width 15.8 % (11.5-14.5); White Blood Count 7.7 K/mm3 (4.5-10.0)
[2022-05-27 23:28] LABS: Alanine Aminotransferase 12 U/L (6-50); Albumin Level 3.6 g/dL (3.5-5.1); Alkaline Phosphatase 90 U/L (38-126); Anion Gap 6 mmol/L (8-16); Aspartate Amino Transferase 14 U/L (17-59); Bilirubin,Total 0.2 mg/dL (0.2-1.3); Blood Urea Nitrogen 19 mg/dL (9-20); Calcium 8.7 mg/dL (8.4-10.2); Carbon Dioxide 28 mmol/L (22-30); Chloride 107 mmol/L (98-107); Estimated Glomerular Filt Rate > 60; Glucose 96 mg/dL (65-110); Lipase 50 U/L (23-300); Potassium 4.3 mmol/L (3.4-5.0); Sodium 141 mmol/L (137-145)
[2022-05-27 23:29] LABS: Prothrombin Time 12.7 Seconds (11.1-14.7)
[2022-05-27 23:31] LABS: Partial Thromboplastin Time 30.9 SECONDS (22.3-36.8)
[2022-05-27 23:39] LABS: Troponin I < 0.012 ng/mL (0.000-0.034)
[2022-05-28] VITALS (19 sets, daily range): BP systolic 116–130; BP diastolic 74–89; PULSE 68–87; RESP 12–24; O2SAT 96–100
[2022-05-28] MEDS: ASPIRIN 81 MG CHEWABLE TABLET 324 MG PO (00:04)
[2022-05-28 00:31] LABS: D Dimer 1.31 ug/mL (<0.48)
[2022-05-28 01:57] LABS: SARS-CoV-2 RNA PCR Negative
[2022-05-28 02:40] LABS: Troponin I < 0.012 ng/mL (0.000-0.034)
[2022-05-28] MEDS: ONDANSETRON HCL ODT 4 MG TABLET PO (02:50)
== END 2022-05-28 05:15 ==
PROVIDERS: Physician Assistant; Emergency Provider Emergency Medicine
DX: J18.9 Pneumonia, unspecified organism (principal); Z20.822 Contact with and (suspected) exposure to COVID-19; K21.9 Gastro-esophageal reflux disease without esophagitis; F17.200 Nicotine dependence, unspecified, uncomplicated; R94.31 Abnormal electrocardiogram [ECG] [EKG]; J43.9 Emphysema, unspecified
CPT/HCPCS: 36415; 71045; 71275; 80053; 83690; 84484; 85025; 85380; 85610; 85730; 93005; 99284; A9270; C9803; Q9967; U0003; U0005

== ENCOUNTER 2022-06-12 04:42 | Emergency (ER) | payer MEDICARE, MEDICAID, SELFPAY ==
--- NOTE | ~2022-06-12 | XR_ITS ---
XR elbow LT min 3V 06/12/2022 07:39 Indication: Left elbow pain with swelling Procedure: 3 views left elbow Comparison: No prior studies for comparison. Findings: No acute fracture, subluxation or dislocation. Osteopenia. No significant joint effusion. N o foreign bodies. Mild soft tissue swelling at the elbow. Impression: 1: No acute fracture. Reviewed, dictated and finalized at location A. Impression: 1: No acute fracture.
[2022-06-12 04:54] VITALS: BP 130/82; PULSE 81; RESP 18; TEMP 36.4; O2SAT 97
[2022-06-12 06:19] VITALS: BP 124/74; PULSE 80; RESP 18; O2SAT 100
[2022-06-12] MEDS: SODIUM CHLORIDE 0.9% IV 1,000 ML 999 ML IV CONT (07:45)
[2022-06-12] MEDS: ONDANSETRON INJ 4 MG/2 ML VIAL IV PUSH (07:46)
[2022-06-12 07:49] VITALS: BP 116/82; PULSE 65; RESP 18; O2SAT 99
[2022-06-12 07:50] LABS: Basophils Absolute Auto 0.1 K/mm3 (0.0-0.1); Basophils Percent Auto 0.7 % (0.2-1.2); Eosinophils Absolute Auto 0.3 K/mm3 (0-0.3); Eosinophils Percent Auto 3.3 % (0-4.4); Hemoglobin 10.7 g/dL (14.0-18.0); Immature Granulocyte Absolute 0.03 K/mm3 (0.00-0.031); Immature Granulocyte Percent A 0.3 % (0-0.5); Lymphocytes Absolute Auto 1.61 K/mm3 (0.9-3.2); Lymphocytes Percent Auto 16.6 % (18.3-44.2); Mean Corpuscular HGB Conc 30.6 g/dl (32-36); Mean Corpuscular Hemoglobin 26.8 pg (26-34); Mean Corpuscular Volume 87.5 fl (80-100); Mean Platelet Volume 10.1 fl (7.4-10.4); Monocytes Absolute Auto 0.4 K/mm3 (0.1-0.6); Neutrophils Absolute Auto 7.3 K/mm3 (1.3-6.7); Neutrophils Percent Auto 75.1 % (45.5-73.1); Platelet Count Result 307 k/mm3 (150-375); Red Cell Distribution Width 15.7 % (11.5-14.5); White Blood Count 9.7 K/mm3 (4.5-10.0)
[2022-06-12] MEDS: MECLIZINE HCL 25 MG TABLET PO (08:00)
[2022-06-12 08:02] LABS: Alanine Aminotransferase 12 U/L (6-50); Albumin Level 3.7 g/dL (3.5-5.1); Alkaline Phosphatase 84 U/L (38-126); Anion Gap 12 mmol/L (8-16); Aspartate Amino Transferase 19 U/L (17-59); Bilirubin,Total 0.4 mg/dL (0.2-1.3); Blood Urea Nitrogen 16 mg/dL (9-20); Calcium 8.8 mg/dL (8.4-10.2); Carbon Dioxide 29 mmol/L (22-30); Chloride 102 mmol/L (98-107); Estimated CRCL calculation 99 ml/min; Estimated Glomerular Filt Rate > 60; Glucose 113 mg/dL (65-110); Potassium 3.5 mmol/L (3.4-5.0); Sodium 143 mmol/L (137-145)
--- NOTE | 2022-06-12 11:08 | ED.EXTPRO ---
HPI - Extremity Problem General Chief complaint: Extremity Problem,Nontraumatic Stated complaint: elbow pain no injury Time Seen by Provider: 06/12/22 07:09 History of Present Illness HPI Narrative: Patient is a 57-year-old male who presents ER with concerns for elbow swelling. Patient was sent from his correction. No known trauma. Patient has chronic contractures of upper extremities. He is poor historian due to schizoaffective disorder. He denies any recent trauma and there is no visual evidence of trauma. Related Data Home Medications Medication Instructions Recorded Confirmed omeprazole 20 mg capsule,delayed 03/03/21 release ondansetron HCl 4 mg tablet 03/03/21 oxycodone-acetaminophen 10 mg-325 03/03/21 mg tablet prednisone 5 mg tablet 03/03/21 Vitamin D2 06/12/22 baclofen 5 mg tablet mg 06/12/22 budesonide-formoterol HFA 160 inhalation 06/12/22 mcg-4.5 mcg/actuation aerosol inhaler (Symbicort) celecoxib 200 mg capsule 200 mg PO BID 06/12/22 06/12/22 folic acid 1 mg tablet 1 mg PO DAILY 06/12/22 06/12/22 food supplemt, lactose-reduced ea 06/12/22 06/12/22 (Ensure oral liquid) furosemide 20 mg tablet (Lasix) mg 06/12/22 magnesium 200 mg tablet mg 06/12/22 omeprazole 20 mg capsule,delayed mg 06/12/22 release prednisone 5 mg tablet mg 06/12/22 Allergies Allergy/AdvReac Type Severity Reaction Status Date / Time cephalexin [From Keflex] Allergy Swelling Verified 06/12/22 06:20 of Lip/Tongue/Throat diazepam [From Valium] Allergy Depression Verified 06/12/22 06:20 peanut Allergy Other Verified 06/12/22 06:20 Sulfa (Sulfonamide Allergy Swelling Verified 06/12/22 06:20 Antibiotics) of Lip/Tongue/Throat Review of Systems Review of Systems: ROS unobtainable: Yes unobtainable due to mental status PMFSH Past Medical History Medical History (Updated 06/12/22 @ 18:24 by Rayo Martins MD) Chronic pain History of gastroesophageal reflux (GERD) Malnutrition Schizoaffective disorder Tobacco abuse Surgical History Surgical History History of colostomy History of orthopedic surgery Social History Social History Smoking status: Current every day smoker Gender identity (if verbalized by the patient): Male Exam Narrative: GENERAL: Chronically ill-appearing, malnourished, and in no acute distress. HEAD: Normocephalic, atraumatic. EYES: PERRL and EOMI. ENT: Moist mucous membranes.. CHEST: Clear to auscultation. No respiratory distress. HEART: Regular rate and rhythm. Normal peripheral pulses. ABDOMEN: Soft, nontender, nondistended. EXTREMITIES: Diffuse muscular atrophy of the upper and lower extremities with contractures of the joints in the hands. The left elbow in appearance is larger than the right side however it does not appear to be an effusion, there is no bursal swelling, there is no erythema or tenderness. SKIN: Warm, dry, no rash. NEURO: Alert and oriented x2. Course Course Emergency Course: No acute finding. Discharge back to correction Vital Signs Vital signs: Vital Signs Temperature 97.6 F 06/12/22 04:54 Pulse Rate 81 06/12/22 04:54 Respiratory Rate 18 06/12/22 04:54 Blood Pressure 130/82 06/12/22 04:54 Pulse Oximetry 97 06/12/22 04:54 Oxygen Delivery Room Air 06/12/22 04:54 Temperature 97.6 F 06/12/22 04:54 Pulse Rate 78 06/12/22 11:29 Respiratory Rate 18 06/12/22 11:29 Blood Pressure 118/72 06/12/22 11:29 Pulse Oximetry 99 06/12/22 11:29 Oxygen Delivery Room Air 06/12/22 04:54 MDM - Extremity (Nontraumatic) Lab Data Result diagrams: 06/12/22 07:42 06/12/22 07:43 Labs: Lab Results 06/12/22 06/12/22 Range/Units 07:42 07:43 WBC 9.7 (4.5-10.0) K/mm3 RBC 4.00 L (4.6-6.20) M/mm3 Hgb 10.7 L (14.0-18.0) g/dL
[2022-06-12] MEDS: ACETAMINOPHEN 325 MG TABLET 650 MG PO (11:20)
--- NOTE | 2022-06-12 11:27 | PC.NURSE ---
report called to [facility] to adilia Turner. ems enroute
[2022-06-12 11:29] VITALS: BP 118/72; PULSE 78; RESP 18; O2SAT 99
== END 2022-06-12 12:21 ==
PROVIDERS: Emergency Provider Emergency Medicine; PCP Family Medicine
DX: M25.522 Pain in left elbow (principal); R42 Dizziness and giddiness; K21.9 Gastro-esophageal reflux disease without esophagitis; F25.9 Schizoaffective disorder, unspecified; M62.422 Contracture of muscle, left upper arm; M62.421 Contracture of muscle, right upper arm; F17.200 Nicotine dependence, unspecified, uncomplicated
CPT/HCPCS: 36415; 73080; 80053; 85025; 96361; 96374; 99284; A9270; J2405; J7030

== ENCOUNTER 2022-06-19 00:41 | Inpatient (IN) | payer MEDICARE, MEDICAID, SELFPAY ==
[2022-06-19] VITALS (30 sets, daily range): BP systolic 112–138; BP diastolic 62–92; PULSE 66–93; RESP 12–20; TEMP 35.9–37.3; O2SAT 97–100; BMI 15.0
--- NOTE | ~2022-06-19 | CT_ITS ---
EXAMINATION: CT brain wo con DATE: 06/24/2022 18:29 INDICATION: Speech deficit. TECHNIQUE: Computed tomography (CT) of the head was performed without intravenous contrast. The mA wa s adjusted according to patient size. Iterative reconstruction technique was employed. The dose-lengt h product was 681.00 mGy-cm. COMPARISON: None FINDINGS: There is no intracranial hemorrhage, acute infarction, or abnormal intracranial mass lesion . The ventricles are normal in size. The mastoid air cells are normal. There is mucosal thickening i n the paranasal sinuses. The orbits are normal. IMPRESSION: 1. Normal brain. Reviewed, dictated and finalized at location A. ONAL FITNESS MANAGER IMPRESSION: 1. Normal brain.
--- NOTE | ~2022-06-19 | XR_ITS ---
MODIFIED ESOPHAGRAM HISTORY: Dysphagia. And silent aspiration TECHNIQUE: Modified barium esophagram was performed on 06/23/2022. I administered fluoroscopy and per formed the exam with speech pathologist. Patient was seated for lateral fluoroscopic imaging for ing estion of thin liquids, pudding, solids and quantified amounts, followed by thin liquids in uncontrol led amounts. This was recorded on tape. A single fluoroscopic spot image was also recorded. The DAP f or this procedure was 0.987 Gycm2. The amount of fluoroscopy time used during this procedure was 1.8 minutes. FINDINGS: Oral stage: Adequate function. Pharyngeal stage: Reduced laryngeal elevation and adduction. Reduced tongue base retraction. Large am ount of vallecular residue with pudding consistencies. There is also performed sinus residue. There i s laryngeal penetration and silent aspiration with thin liquids.. Cervical/esophageal stage: Adequate function. IMPRESSION: Pharyngeal dysphagia including laryngeal penetration and silent aspiration with thin liqu ids. Please correlate with speech pathologist findings and specific feeding recommendations. Reviewed, dictated and finalized at location A. OPERATOR IMPRESSION: Pharyngeal dysphagia including laryngeal penetration and silent asp iration with thin liquids. Please correlate with speech pathologist findings a nd specific feeding recommendations.
--- NOTE | ~2022-06-19 | CT_ITS ---
EXAMINATION: CT abdomen pelvis w con DATE: 06/19/2022 01:38 INDICATION: Right abdominal pain, mass, nausea and vomiting TECHNIQUE: Computed tomography (CT) of the abdomen and pelvis was performed with 200 CC Omnipaque 350 intravenous contrast. Automated exposure control and iterative reconstruction technique were employe d. Exam dose: 933.26 mGy-cm total exam DLP. COMPARISON: 05/25/2022 CT abdomen pelvis FINDINGS: There is mild tree-in-bud infiltrates in the lower lobes suggesting possible infectious process. Normal heart size. No pericardial or pleural effusion. The gallbladder is distended. No gallbladder wall thickening. No pericholecystic fluid or fat strandi ng. No bile duct or pancreatic duct dilatation is detected. No hepatic, splenic, pancreatic, and adrenal or renal space-occupying mass lesion is detected. This p ost IV contrast examination is not sensitive for detection of urinary tract calculi. There is prostate enlargement and calcification. The urinary bladder is distended. There is atherosclerotic calcification but normal caliber of the abdominal aorta and iliac arteries. There is a prominent amount of fecal material in the rectum and colon. No bowel obstruction or intrap eritoneal free air is detected. There is severe right hip osteoarthritis and left hip lesser osteoarthritis. Diffuse osteopenia. IMPRESSION: Bilateral lower lobe tree-in-bud infiltrates Prostate enlargement and calcification, distended urinary bladder Bilateral hip osteoarthritis, particularly severe on the right Reviewed, dictated and finalized at Location A. Reviewed, dictated and finalized at location A. MENTAL METAL WORKER
--- NOTE | ~2022-06-19 | XR_ITS ---
EXAMINATION: XR hip RT min 2V DATE: 06/24/2022 13:43 INDICATION: Right hip pain. TECHNIQUE: 2 views of right hip were obtained. COMPARISON: CT abdomen and pelvis 06/19/2022 FINDINGS: Bone alignment is normal. No fracture. Osteopenia is noted. There is advanced right hip ost eoarthritis. IMPRESSION: 1. Advanced right hip osteoarthritis. Reviewed, dictated and finalized at location A. BATOR OPERATOR
--- NOTE | ~2022-06-19 | XR_ITS ---
XR chest 1V portable DATE: 06/19/2022 04:33 INDICATION: Chest pain TECHNIQUE: Portable supine AP views on 06/19/2022 at 0426 hours COMPARISON: Intraoperative 2021 CTA chest 05/28/2022 portable AP chest FINDINGS: Bullous emphysematous changes are noted particularly in the apices. There is focal left upp er lobe infiltrate, also present on 05/28/2022 Interstitial infiltrate in the right lower lung. Bilateral hyperinflation, consistent with COPD. Normal heart size. Osteopenia.. IMPRESSION: Bullous emphysema Left upper and right lower lung infiltrates Reviewed, dictated and finalized at location A. L OPPORTUNITY SPECIALIST
--- NOTE | ~2022-06-19 | XR_ITS ---
EXAMINATION: XR barium swallow modified DATE: 06/20/2022 09:31 INDICATION: Dysphagia. TECHNIQUE: The patient was given barium-containing material of multiple consistencies to swallow by t he speech pathologist while I performed fluoroscopy. Fluoroscopy exposure time was 2.7 minutes. The n umber of fluoroscopy images saved to the PACS was 1. Dose-area product was 1.628 Gy-cm^2. FINDINGS: There is reduced lingual movement. There is reduced laryngeal elevation, reduced tongue base retracti on, reduced pharyngeal squeeze, vallecular residue, piriformis sinus residue, pharyngeal wall residue , and laryngeal penetration without clearing. IMPRESSION: 1. Laryngeal penetration without clearing. 2. Please refer to the speech therapy report for recommendations. Reviewed, dictated and finalized at location A. NCIAL SOLUTIONS ADVISOR
--- NOTE | ~2022-06-19 | XR_ITS ---
EXAMINATION: XR abdomen/kub 1V INDICATION: Constipation TECHNIQUE: Supine view of the abdomen is obtained. COMPARISON: None FINDINGS: Contrast material from modified esophagram is noted. There is a moderate volume of colonic stool. No dilated loops of bowel are evident. There is advanced osteoarthritis of the right hip and m oderate osteoarthritis of the left hip. The visualized lung bases are clear. IMPRESSION: 1. Moderate volume of colonic stool. Reviewed, dictated and finalized at location B. FYING PLANT OPERATOR
--- NOTE | ~2022-06-19 | XR_ITS ---
EXAMINATION: XR abdomen NG/feed tube rechec INDICATION: Nasogastric tube adjustment TECHNIQUE: Portable AP KUB-NG at 1613 hours COMPARISON: 1607 hours FINDINGS: The nasogastric tube has been advanced into the stomach. The lung bases are clear. The hear t size is normal. Enteric contrast from modified barium swallow performed yesterday is seen in the la rge bowel. IMPRESSION: 1. Nasogastric tube in the stomach. Reviewed, dictated and finalized at location B. RPRETER
--- NOTE | ~2022-06-19 | XR_ITS ---
EXAMINATION: XR abdomen/kub 1V DATE: 06/29/2022 14:59 INDICATION: Umbilical abdominal pain. Small bowel obstruction. TECHNIQUE: A supine view of the abdomen was obtained. COMPARISON: CT abdomen and pelvis 06/19/2022 FINDINGS: There are no dilated loops of bowel. There is contrast in the colon. A gastrostomy tube is noted. IMPRESSION: 1. Nonobstructed bowel gas pattern. Reviewed, dictated and finalized at location A. T ROOM INSPECTOR
--- NOTE | ~2022-06-19 | XR_ITS ---
EXAMINATION: XR abdomen NG/feed tube insert INDICATION: Nasogastric tube placement TECHNIQUE: Portable AP KUB-NG at 1607 hours COMPARISON: 06/21/2022 FINDINGS: The tip of the nasogastric tube ends near the gastroesophageal junction. The visualized je g bases are clear. The heart size is normal. Enteric contrast from modified barium swallow performed yesterday is noted in the large bowel. IMPRESSION: 1. Nasogastric tube in the esophagus. Tube has been advanced at the time of interpretation. Reviewed, dictated and finalized at location B. HOIST OPERATOR IMPRESSION: 1. Nasogastric tube in the esophagus. Tube has been advanced at the time of int erpretation.
--- NOTE | ~2022-06-19 | XR_ITS ---
EXAMINATION: XR abdomen NG/feed tube insert DATE: 06/21/2022 14:53 INDICATION: Nasogastric tube placement. TECHNIQUE: An upright view of the abdomen was obtained. COMPARISON: Abdomen radiograph 06/20/2022, CT abdomen and pelvis 06/19/22 FINDINGS: The lower abdomen is excluded. The nasogastric tube tip is in the stomach with proximal wojciech e port at the gastroesophageal junction. IMPRESSION: 1. Nasogastric tube tip in the stomach. Reviewed, dictated and finalized at location A. UCTION EDITOR
--- NOTE | 2022-06-19 00:43 | ECG_ITS ---
Measurements Intervals [place] Rate: 81 P: 65 [place]: 156 QRS: 64 QRSD: 84 T: 15 QT: 363 QTc: 423 Interpretive Statements SINUS RHYTHM POSSIBLE LEFT ATRIAL ENLARGEMENT CANNOT RULE OUT SEPTAL INFARCT, AGE INDETERMINATE BORDERLINE ST ABNORMALITY- LATERAL LEADS BASELINE ARTIFACT- V4 ABNORMAL ECG COMPARED TO ECG 05/27/2022 23:07:22 CANNOT RULE OUT SEPTAL INFARCT, AGE INDETERMINATE NOW PRESENT Electronically Signed On 06-19-2022 13:53:40 FLIGHT INFORMATION EXPEDITER by Adonis Gage D.O.
[2022-06-19 01:00] LABS: Partial Thromboplastin Time 39.2 SECONDS (22.3-36.8)
--- NOTE | 2022-06-19 01:03 | PC.NURSE ---
Patient taken to CT via stretcher.
--- NOTE | 2022-06-19 01:17 | PC.NURSE ---
Patient vomiting in room, ERP aware. Orders being placed.
--- NOTE | 2022-06-19 01:36 | PC.NURSE ---
3-hr troponin ordered at 0330 d/t time change.
[2022-06-19] MEDS: SODIUM CHLORIDE 0.9% IV 2,000 ML 999 ML IV CONT (01:37)
--- NOTE | 2022-06-19 01:44 | ED.GENADULT ---
HPI - General Adult General Chief complaint: Chest Pain Stated complaint: n/v and cp Time Seen by Provider: 06/19/22 01:16 CDT History of Present Illness HPI narrative: Patient has difficulties communicating and is unable to explain his symptoms very well. This is a 57-year-old male with chronic debility and contractures presenting to ED with abdominal pain. Patient has a colostomy from 2 colorectal surgeries. Patient says he has been having abdominal pain and feels a mass on the right side of his stomach. Patient notes he has had significant weight loss lately. Patient has difficulty feeding himself as his arms and legs are both contracted. Patient denies chest pain, difficulty breathing, fever, chills, urinary symptoms. Related Data Home Medications Medication Instructions Recorded Confirmed omeprazole 20 mg capsule,delayed 03/03/21 release ondansetron HCl 4 mg tablet 03/03/21 oxycodone-acetaminophen 10 mg-325 03/03/21 mg tablet prednisone 5 mg tablet 03/03/21 Vitamin D2 06/12/22 baclofen 5 mg tablet mg 06/12/22 budesonide-formoterol HFA 160 inhalation 06/12/22 mcg-4.5 mcg/actuation aerosol inhaler (Symbicort) celecoxib 200 mg capsule 200 mg PO BID 06/12/22 06/12/22 folic acid 1 mg tablet 1 mg PO DAILY 06/12/22 06/12/22 food supplemt, lactose-reduced ea 06/12/22 06/12/22 (Ensure oral liquid) furosemide 20 mg tablet (Lasix) mg 06/12/22 magnesium 200 mg tablet mg 06/12/22 omeprazole 20 mg capsule,delayed mg 06/12/22 release prednisone 5 mg tablet mg 06/12/22 Allergies Allergy/AdvReac Type Severity Reaction Status Date / Time cephalexin [From Keflex] Allergy Swelling Verified 06/12/22 06:20 of Lip/Tongue/Throat diazepam [From Valium] Allergy Depression Verified 06/12/22 06:20 peanut Allergy Other Verified 06/12/22 06:20 Sulfa (Sulfonamide Allergy Swelling Verified 06/12/22 06:20 Antibiotics) of Lip/Tongue/Throat Review of Systems Review of Systems: CONSTITUTIONAL: Denies night sweats. EYES: No eye pain ENT: Denies rhinorrhea CARDIOVASCULAR: Denies palpitations RESPIRATORY: Denies hemoptysis GASTROINTESTINAL: Denies hematemesis GENITOURINARY: Denies hematuria. SKIN: Denies rash MUSCULOSKELETAL: Denies myalgia. NEUROLOGIC: Denies weakness. PSYCHIATRIC: Denies delusions PMFSH Past Medical History Medical History Chronic pain History of gastroesophageal reflux (GERD) Malnutrition Schizoaffective disorder Tobacco abuse Surgical History Surgical History History of colostomy History of orthopedic surgery Social History Social History Smoking status: Current every day smoker Gender identity (if verbalized by the patient): Male Exam Narrative: APPEARANCE: Patient is cachectic, his legs are contracted, his arms are lying flat by his side Head: atraumatic. EYES: EOMI, NOSE: Atraumatic NECK: Trachea midline RESPIRATORY: No increased rate of breathing CARDIOVASCULAR: RRR, ABDOMINAL: abdomen has a colostomy bag in place, his abdomen is sunken, tender on the right side but no guarding or rebound. No palpable masses MUSCULOSKELETAl: Lower extremity contractures. Swelling of the elbows and hand joints. NEURO: Alert. patient can wiggle all extremities exam limited by contractures SKIN:: Warm, dry. Normal color PSYCHIATRIC: Normal affect Course Vital Signs Vital signs: Vital Signs Temperature 98.2 F 06/19/22 00:38 Pulse Rate 91 06/19/22 00:38 Respiratory Rate 14 06/19/22 00:38 Blood Pressure 138/92 H 06/19/22 00:38 Pulse Oximetry 99 06/19/22 00:38 Oxygen Delivery Room Air 06/19/22 00:38 Temperature 98.2 F 06/19/22 00:38 Pulse Rate 71 06/19/22 02:31 Respiratory Rate 16 06/19/22 02:31 Blood Pressure 114/82 06/19/22 02:30 Pulse Oxim
[2022-06-19 01:47] LABS: Alanine Aminotransferase 14 U/L (6-50); Albumin Level 3.9 g/dL (3.5-5.1); Alkaline Phosphatase 97 U/L (38-126); Anion Gap 12 mmol/L (8-16); Aspartate Amino Transferase 17 U/L (17-59); Bilirubin,Total 0.5 mg/dL (0.2-1.3); Blood Urea Nitrogen 16 mg/dL (9-20); Calcium 8.9 mg/dL (8.4-10.2); Carbon Dioxide 25 mmol/L (22-30); Chloride 101 mmol/L (98-107); Estimated Glomerular Filt Rate > 60; Glucose 109 mg/dL (65-110); Lipase 37 U/L (23-300); Magnesium 1.8 mg/dL (1.6-2.3); Phosphorus 2.8 mg/dL (2.5-4.5); Potassium 3.4 mmol/L (3.4-5.0); Sodium 138 mmol/L (137-145)
[2022-06-19 01:47] LABS: Basophils Absolute Auto 0.1 K/mm3 (0.0-0.1); Basophils Percent Auto 0.8 % (0.2-1.2); Eosinophils Absolute Auto 0.4 K/mm3 (0-0.3); Eosinophils Percent Auto 4.5 % (0-4.4); Hematocrit 35.5 % (42.0-52.0); Hemoglobin 10.9 g/dL (14.0-18.0); Immature Granulocyte Absolute 0.03 K/mm3 (0.00-0.031); Immature Granulocyte Percent A 0.3 % (0-0.5); Lymphocytes Absolute Auto 2.47 K/mm3 (0.9-3.2); Lymphocytes Percent Auto 25.7 % (18.3-44.2); Mean Corpuscular HGB Conc 30.7 g/dl (32-36); Mean Corpuscular Hemoglobin 26.5 pg (26-34); Mean Corpuscular Volume 86.4 fl (80-100); Monocytes Absolute Auto 0.4 K/mm3 (0.1-0.6); Monocytes Percent Auto 4.2 % (2.6-8.5); Neutrophils Absolute Auto 6.2 K/mm3 (1.3-6.7); Neutrophils Percent Auto 64.5 % (45.5-73.1); Platelet Count Result 335 k/mm3 (150-375); Red Blood Count 4.11 M/mm3 (4.6-6.20); Red Cell Distribution Width 15.3 % (11.5-14.5); White Blood Count 9.6 K/mm3 (4.5-10.0)
[2022-06-19 01:58] LABS: Troponin I 0.021 ng/mL (0.000-0.034)
[2022-06-19 01:59] LABS: INR 1.1; Prothrombin Time 13.7 Seconds (11.1-14.7)
[2022-06-19 02:29] LABS: Appearance Urine Clear (Clear); Bilirubin Urine Negative (Negative); Blood Urine Trace-intact (Negative); Color Urine Yellow (Yellow); Glucose Urine UA Negative (Negative); Ketones Urine Negative (Negative); Leukocyte Esterase Ur Negative LEU/UL (Negative); Nitrate Urine Negative (Negative); Protein Urine Negative (Negative); Specific Grav Ur 1.015 (1.001-1.035); Urobilinogen Urine 0.2 mg/dL (<2.0)
[2022-06-19 02:49] LABS: Bacteria Urine Trace /hpf; WBC Urine 0-3 /hpf
[2022-06-19 02:50] LABS: Add Urine Microscopic? YES
[2022-06-19 03:55] LABS: Troponin I < 0.012 ng/mL (0.000-0.034)
[2022-06-19 04:07] LABS: SARS-CoV-2 RNA PCR Negative
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
--- NOTE | 2022-06-19 11:49 | PM.IMHP ---
H&P: HPI History of Present Illness Date/Time: 06/19/22 11:49 Chief Complaint: weight loss Narrative: 57-year-old patient of [facility] is sent to the hospital for evaluation of weight loss. There is concerned that he may require insertion of a feeding tube. patient has severe ankylosing spondylitis and rheumatoid arthritis and is bed-bound with contractures of all extremities. He reports to me that he is unable to feed himself and that he does receive assistance sometimes. He denies change in taste. he denies loss of appetite. he denies nausea or vomiting or other GI symptoms. He is concerned that he has a chronic wasting disease like cancer. He does have chronic pain medicine dependency and request pain medication during our interview today. I have advised him that he will remain on his normal chronic outpatient pain regimen. Speech therapy has evaluated the patient and cleared him for a pureed diet and staff has been educated to help with feeding. Code status has been discussed with the patient he requests to remain full code and would like all extraordinary measures performed to keep him alive. He would like a feeding tube if it is considered necessary to meet his caloric requirements. Review of Systems Review of Systems: All systems reviewed & are unremarkable except as noted in HPI and below PMFSH Past Medical History Medical History (Updated 06/19/22 @ 11:52 by Audra Montes De Oca MD) Chronic pain History of gastroesophageal reflux (GERD) Malnutrition Schizoaffective disorder Tobacco abuse Surgical History Surgical History History of colostomy History of orthopedic surgery Family History Family History (Updated 06/19/22 @ 18:08 by Audra Montes De Oca MD) Other Heart disease Liver disease Lung cancer Lymphoma Social History Social History (Updated 06/19/22 @ 18:07 by Audra Montes De Oca MD) Smoking status: Current every day smoker Tobacco type: cigarettes Alcohol intake: former Substance use: former Substance use type: marijuana Last use: Has not used alcohol or marijuana since becoming a resident of the MD Gender identity (if verbalized by the patient): Male Spiritual care concerns: No Meds Home Medications and Allergies Home Medications Medication Instructions Recorded Confirmed Type hydrocodone 10 mg-acetaminophen 1 tablet PO Q6H PRN pain #1 tablet 03/07/21 06/19/22 Rx 325 mg tablet Vitamin D2 50,000 units PO WEEKLY 06/12/22 06/19/22 History baclofen 5 mg tablet 5 mg PO TID 06/12/22 06/19/22 History budesonide-formoterol HFA 160 2 puff inhalation BID 06/12/22 06/19/22 History mcg-4.5 mcg/actuation aerosol inhaler (Symbicort) celecoxib 200 mg capsule 200 mg PO BID 06/12/22 06/19/22 History folic acid 1 mg tablet 2 mg PO DAILY 06/12/22 06/19/22 History food supplemt, lactose-reduced 1 ea PO TID 06/12/22 06/19/22 History (Ensure oral liquid) furosemide 20 mg tablet (Lasix) 20 mg PO DAILY 06/12/22 06/19/22 History magnesium 200 mg tablet 600 mg PO DAILY 06/12/22 06/19/22 History omeprazole 20 mg capsule,delayed 20 mg PO DAILY 06/12/22 06/19/22 History release prednisone 5 mg tablet 7.5 mg PO DAILY 06/12/22 06/19/22 History acetaminophen 650 mg tablet 650 mg PO BID PRN Fever Or Pain 06/19/22 06/19/22 History albuterol 90 mcg/actuation aerosol 90 mcg inhalation Q4-5H PRN 06/19/22 06/19/22 History inhaler Shortness Of Breath hydroxyzine HCl 25 mg tablet 25 mg PO TID PRN Itching 06/19/22 06/19/22 History meclizine 12.5 mg tablet 25 mg PO TID PRN dizziness 06/19/22 06/19/22 History polyethylene glycol 3350 17 17 g PO TID PRN Constipation 06/19/22 06/19/22 History gram/dose oral powder (Miralax) Allergies Allergy/AdvReac Type Severity Reaction Status Date / Time cephalexin [From Keflex] Allergy Swelling Verified 06/12/22 06:20 of Lip/Tongue/Throat Cephalosporins Allergy U
[2022-06-19] MEDS: ACETAMINOPHEN 325 MG TABLET 650 MG PO (12:59)
--- NOTE | 2022-06-19 13:20 | PCSTNOTE ---
Bedside swallowing evaluation. Patient resides in a long-term where he is assisted with eating. His current diet is unknown but he states that he receives thickened liquids. Results of today's evaluation indicate patient is at risk of aspiration. Recommendation: pureed diet and moderately thickened liquids, and modified barium swallow study. Thank you for the referral of this patient.
[2022-06-19] MEDS: BACLOFEN 5 MG TABLET PO ×2 (14:09→16:32)
[2022-06-19] MEDS: MEGESTROL ACETATE (*CHEMO) 20 MG TABLET PO (16:33)
[2022-06-19] MEDS: CELECOXIB 200 MG CAPSULE PO (16:33)
[2022-06-19] MEDS: HYDROcodone/acetaminophen (*CRX) 10-325 MG TABLET 1 TAB PO ×2 (17:45→23:43)
[2022-06-19] MEDS: SODIUM CHLORIDE 0.9% IV 1,000 ML 50 ML IV CONT (18:33)
[2022-06-19 19:24] LABS: Procalcitonin 0.1 ng/mL
--- NOTE | 2022-06-19 21:02 | PC.NURSE ---
called Ashley DUNN for IV Tylenol and Zofran r/t pt c/o nausea abd temp 99.1.
[2022-06-19] MEDS: ONDANSETRON INJ 4 MG/2 ML VIAL IV PUSH (21:45)
--- NOTE | 2022-06-20 00:23 | PC.NURSE ---
called Md Landeros for trazodone 50 mg PO to help with sleep difficulty
[2022-06-20 00:26] VITALS: BP 112/73; PULSE 69; RESP 20; TEMP 37.1; O2SAT 99
[2022-06-20] MEDS: traZODone HCL 50 MG TABLET PO (00:33)
[2022-06-20] MEDS: HYDROcodone/acetaminophen (*CRX) 10-325 MG TABLET 1 TAB PO ×2 (05:34→11:05)
[2022-06-20] MEDS: hydrOXYzine HCL 25 MG TABLET PO (05:35)
[2022-06-20 05:58] VITALS: BP 110/72; PULSE 66; RESP 20; TEMP 37.1; O2SAT 99
[2022-06-20] MEDS: CELECOXIB 200 MG CAPSULE PO (08:28)
[2022-06-20] MEDS: MAGNESIUM OXIDE 200 MG TABLET 600 MG PO (08:28)
[2022-06-20] MEDS: FUROSEMIDE 20 MG TABLET PO (08:28)
[2022-06-20] MEDS: BACLOFEN 5 MG TABLET PO ×2 (08:28→12:16)
[2022-06-20] MEDS: FOLIC ACID 1 MG TABLET 2 MG PO (08:28)
[2022-06-20] MEDS: predniSONE 2.5 MG TABLET 7.5 MG PO (08:29)
[2022-06-20] MEDS: PANTOPRAZOLE 40 MG TABLET PO (08:29)
[2022-06-20] MEDS: MEGESTROL ACETATE (*CHEMO) 20 MG TABLET PO (08:29)
--- NOTE | 2022-06-20 09:08 | PM.IMPN ---
Progress Note: A&P Assessment and Plan (1) Flexion contractures: Code(s): M24.50 - Contracture, unspecified joint Status: Acute (2) Schizoaffective disorder: Code(s): F25.9 - Schizoaffective disorder, unspecified Status: Acute (3) Weight loss: Code(s): R63.4 - Abnormal weight loss Status: Acute (4) Adult failure to thrive: Code(s): R62.7 - Adult failure to thrive Status: Acute (5) Malnutrition: Code(s): E46 - Unspecified protein-calorie malnutrition Status: Acute (6) Colostomy in place: Code(s): Z93.3 - Colostomy status Status: Acute (7) Debility: Code(s): R53.81 - Other malaise Status: Acute Plan admit to med surg Vital signs per protocol Normal saline low-dose NPO until evaluated Supportive care Zofran p.r.n. IV Tylenol p.r.n. Consult Gastroenterology Consult speech therapy If patient able to pass swallow eval, will initiate calorie count and dietary consult patient will need assistance with feeding when diet restarted megace BID Continue home medications when confirmed to safely take p.o. will consult general surgery for G tube insertion if unable to swallow or maintain caloric requirements. 06/20/22 seen by global marketing specialist and recs appreciated seen by ST and pt failed swallow eval NPO c/s Surgeon for G tube placement anticipate return to [place] after G tube placed LR supportive care am labs Subjective Date/time seen: 06/20/22 09:08 pt complains of no stool in colostomy for 2 days but admits he has not been eating. well form stool is seen protruding from his ostomy Review of Systems Review of Systems: All systems reviewed & are unremarkable except as noted in HPI and below Exam Const: General: comfortable and no acute distress HENMT: Face/Nose/Sinus: no epistaxis Mouth: Yes moist mucous membranes Other: poor dentition Eyes: General: appearance normal, both eyes and all related structures Neck: Neck: supple and no JVD Carotids: no bruits Chest: Other: symmetric chest rise, no use of accessory muscles Resp: Effort & Inspection: normal respiratory effort Auscultation: clear to auscultation bilaterally Cardio: Rate: regular rate Rhythm: regular rhythm GI: Inspection: non-distended Other: colostomy present and functioning Skin: General skin exam: normal color and no rashes or lesions noted Neuro: Other: patient with comprehensible but garbled speech, alert and oriented x3, moves all extremities without focal findings Extrem: Other: He has both hands contracted unable to extend or open his fingers He has both lower extremities contracted right greater than left and is unable to extend either leg Psych: Mental Status: mental status grossly normal Affect: normal affect Objective Data Vital Signs Vital Signs: Vital Signs - 24 hr 06/19/22 14:00 06/19/22 20:00 06/19/22 21:45 Temperature 97.9 F 99.1 F Pulse Rate 68 Respiratory Rate 18 Blood Pressure 118/62 Pulse Oximetry 100 Oxygen Delivery Room Air 06/19/22 21:44 06/19/22 21:02 06/20/22 00:26 Temperature 99.1 F 99.1 F 98.7 F Pulse Rate 69 69 69 Respiratory Rate 20 20 20 Blood Pressure 112/73 112/73 112/73 Pulse Oximetry 99 99 99 Oxygen Delivery Room Air Room Air 06/20/22 05:58 Temperature 98.8 F Pulse Rate 66 Respiratory Rate 20 Blood Pressure 110/72 Pulse Oximetry 99 Oxygen Delivery Intake/Output Intake/Output: Intake & Output 06/18/22 06/19/22 06/19/22 06/20/22 00:59 00:59 23:59 23:59 Intake Total 240 Output Total 500 Balance -260 Meds/Results Medications: Active Medications Generic Name Dose Route Start Last Admin Trade Name Freq PRN Reason Stop Dose Admin Acetaminophen 650 mg 06/19/22 12:33 06/19/22 12:59 Acetaminophen 325 Mg Tablet PO 650 mg BID PRN Administration Fever Or Mild Pain Hydrocodone Bitart/Acetaminophen 1 tab 1
--- NOTE | 2022-06-20 09:55 | PCSTNOTE ---
Please refer to the Modified Barium Swallow Evaluation in the EMR.
[2022-06-20] MEDS: ALBUTEROL SULFATE (*SP) AEROSOL 1 PUFF INHALATION (10:09)
[2022-06-20] MEDS: FLUTICASONE/SALMETEROL 115-21 MCG INHALER 1 PUFF 2 PUFF INHALATION ×2 (10:10→20:55)
[2022-06-20] MEDS: SODIUM CHLORIDE 0.9% IV 1,000 ML 50 ML IV CONT (12:16)
[2022-06-20 14:00] VITALS: BP 105/64; PULSE 87; RESP 20; TEMP 37.1; O2SAT 99; BMI 15.0
[2022-06-20] MEDS: polyethylene glycoL 3350 17 GM POWD.PACK PO (14:37)
[2022-06-20 21:01] VITALS: O2SAT 98
[2022-06-20 21:28] VITALS: BP 96/63; PULSE 65; RESP 20; TEMP 36.5; O2SAT 99
[2022-06-20] MEDS: ONDANSETRON INJ 4 MG/2 ML VIAL IV PUSH (21:50)
[2022-06-21] MEDS: traZODone HCL 50 MG TABLET PO (00:26)
--- NOTE | 2022-06-21 01:23 | PC.NURSE ---
At 20:00 yellow personal pills were found in the pant pockets of Osman.
[2022-06-21 05:54] VITALS: BP 104/64; PULSE 87; RESP 20; TEMP 36.4; O2SAT 100
[2022-06-21 06:15] LABS: Basophils Percent Auto 0.6 % (0.2-1.2); Eosinophils Absolute Auto 0.3 K/mm3 (0-0.3); Eosinophils Percent Auto 4.4 % (0-4.4); Hematocrit 33.1 % (42.0-52.0); Hemoglobin 10.1 g/dL (14.0-18.0); Immature Granulocyte Absolute 0.01 K/mm3 (0.00-0.031); Immature Granulocyte Percent A 0.1 % (0-0.5); Lymphocytes Absolute Auto 1.63 K/mm3 (0.9-3.2); Lymphocytes Percent Auto 23.9 % (18.3-44.2); Mean Corpuscular HGB Conc 30.5 g/dl (32-36); Mean Corpuscular Hemoglobin 26.9 pg (26-34); Monocytes Absolute Auto 0.2 K/mm3 (0.1-0.6); Monocytes Percent Auto 3.1 % (2.6-8.5); Neutrophils Absolute Auto 4.6 K/mm3 (1.3-6.7); Neutrophils Percent Auto 67.9 % (45.5-73.1); Platelet Count Result 290 k/mm3 (150-375); Red Blood Count 3.76 M/mm3 (4.6-6.20); Red Cell Distribution Width 15.3 % (11.5-14.5); White Blood Count 6.8 K/mm3 (4.5-10.0)
[2022-06-21] MEDS: HYDROmorphone HCL INJ (*CRX) 1 MG/ML SYR IV PUSH (06:21)
[2022-06-21 06:30] LABS: Partial Thromboplastin Time 38.5 SECONDS (22.3-36.8)
[2022-06-21 06:34] LABS: Anion Gap 13 mmol/L (8-16); Blood Urea Nitrogen 8 mg/dL (9-20); Calcium 8.2 mg/dL (8.4-10.2); Carbon Dioxide 25 mmol/L (22-30); Chloride 101 mmol/L (98-107); Estimated CRCL calculation 150 ml/min; Estimated Glomerular Filt Rate > 60; Glucose 84 mg/dL (65-110); Magnesium 1.8 mg/dL (1.6-2.3); Potassium 3.3 mmol/L (3.4-5.0); Sodium 139 mmol/L (137-145)
[2022-06-21] MEDS: PANTOPRAZOLE SODIUM IV 40 MG VIAL IV PUSH (09:14)
--- NOTE | 2022-06-21 10:11 | PM.CNGS ---
Assessment and Plan Assessment and plan (1) Malnutrition: Code(s): E46 - Unspecified protein-calorie malnutrition Status: Acute Assessment and Plan: The patient is malnourished with reported weight loss of 40-50 pounds over the past few months. He has a good appetite and wishes to eat, but he has reportedly been [facility] intake [facility] the [facility] due to lack of assistance with feedings and limited meals and supplements during the day. Speech therapy and the Dietitian have evaluated the patient. He failed his modified barium swallow yesterday for all consistencies and was recommended to be NPO. GI will not attempt endoscopic PEG tube placement due to his previous abdominal surgery. We have been asked to evaluate the patient for possible gastrostomy tube placement for tube feedings and nutritional support. I discussed the case with Dr. Rene. His previous abdominal surgeries would also increase his risks of having open gastrostomy tube placement due to the possibility of having a significant amount of adhesions. I discussed with the patient the alternative option of having a nasogastric tube placed for tube feedings and medication administration for now. This would allow time for speech therapy to work with him on strengthening his muscles for swallowing, and then he could have a repeat modified swallow to re-evaluate if he can swallow safely. The patient was willing to try this, but he is also concerned about returning to the [facility] and not being fed appropriately causing further deterioration and weight loss. He would be agreeable to having the gastrostomy tube placed if needed. Dr. Rene will evaluate the patient as well separately to further discuss his options and the risks of surgery later today to make a definitive decision. (2) Weight loss: Code(s): R63.4 - Abnormal weight loss Status: Acute Assessment and Plan: Reports 40-50 pound weight loss in the past few months. Dietitian record states there is a weight about a year ago per the EMR that suggests a 25 lb weight loss in the past year. Current BMI 15 and he is at 62% of his ideal body weight. While awaiting decision for surgery, I discussed with the Hospitalist the option of having a Dobhoff or NG tube for medications and tube feedings if needed. (3) Colostomy in place: Code(s): Z93.3 - Colostomy status Status: Acute Assessment and Plan: History of a colon resection with colostomy in 2019 at [facility] due to a bowel perforation. Patient reportedly had a second surgery a few days later but is unclear of the details. GI will not attempt endoscopic PEG tube placement due to his previous abdominal surgery. Will request records to verify his surgical history. (4) Flexion contractures: Code(s): M24.50 - Contracture, unspecified joint Status: Acute Assessment and Plan: Will make positioning for surgery more difficult. (5) Bedbound: Code(s): Z74.01 - Bed confinement status Status: Acute (6) Rheumatoid arthritis: Code(s): M06.9 - Rheumatoid arthritis, unspecified Status: Acute (7) Ankylosing spondylitis: Code(s): M45.9 - Ankylosing spondylitis of unspecified sites in spine Status: Acute (8) Schizoaffective disorder: Code(s): F25.9 - Schizoaffective disorder, unspecified Status: Acute Plan I have discussed the patient's case and plan of care with Dr. Rene. History of Present Illness Consult details Consult date: 06/21/22 Reason for consult: endoscopy (Gastrostomy tube placement) Requesting physician: Audra Montes De Oca MD Narrative: This is a 57 year old man who resides at [facility] who was brought into the ER for evaluation 2 days ago for abdominal pain and weight loss. Patient has severe ankylosing spondylitis and rheumatoid arthritis and is bed-bound with contractures of the lower extremities and bilateral hands.
[2022-06-21 10:20] VITALS: O2SAT 97
[2022-06-21] MEDS: FLUTICASONE/SALMETEROL 115-21 MCG INHALER 1 PUFF 2 PUFF INHALATION ×2 (10:20→21:20)
[2022-06-21 13:54] VITALS: BP 116/64; PULSE 85; RESP 18; TEMP 36.4; O2SAT 99
[2022-06-21] MEDS: POTASSIUM CHLORIDE INJ 40 MEQ in SODIUM CHLORIDE 0.9% IV 500 ML 130 MEQ IVPB (14:15)
[2022-06-21] MEDS: HYDROcodone/acetaminophen (*CRX) 10-325 MG TABLET 1 TAB FEED TUBE (15:17)
[2022-06-21] MEDS: ONDANSETRON INJ 4 MG/2 ML VIAL IV PUSH (16:40)
[2022-06-21] MEDS: CELECOXIB 200 MG CAPSULE FEED TUBE (17:54)
[2022-06-21] MEDS: MEGESTROL ACETATE (*CHEMO) 20 MG TABLET FEED TUBE (17:54)
[2022-06-21] MEDS: BACLOFEN 5 MG TABLET FEED TUBE (17:54)
[2022-06-21 20:00] VITALS: PULSE 67; RESP 17; O2SAT 95
[2022-06-21] MEDS: traZODone HCL 50 MG TABLET FEED TUBE (20:28)
[2022-06-21 21:21] VITALS: O2SAT 98
[2022-06-21 22:00] VITALS: BP 119/66; PULSE 67; RESP 17; TEMP 36.3; O2SAT 95
[2022-06-22] MEDS: HYDROcodone/acetaminophen (*CRX) 10-325 MG TABLET 1 TAB FEED TUBE ×4 (02:32→22:22)
[2022-06-22 06:00] VITALS: BP 105/58; PULSE 56; RESP 16; TEMP 36.1; O2SAT 99
[2022-06-22 06:37] LABS: Basophils Absolute Auto 0.1 K/mm3 (0.0-0.1); Basophils Percent Auto 0.8 % (0.2-1.2); Eosinophils Absolute Auto 0.5 K/mm3 (0-0.3); Eosinophils Percent Auto 6.4 % (0-4.4); Hematocrit 33.1 % (42.0-52.0); Hemoglobin 10.3 g/dL (14.0-18.0); Immature Granulocyte Absolute 0.03 K/mm3 (0.00-0.031); Immature Granulocyte Percent A 0.4 % (0-0.5); Lymphocytes Absolute Auto 1.73 K/mm3 (0.9-3.2); Lymphocytes Percent Auto 22.1 % (18.3-44.2); Mean Corpuscular HGB Conc 31.1 g/dl (32-36); Mean Corpuscular Hemoglobin 26.9 pg (26-34); Mean Corpuscular Volume 86.4 fl (80-100); Mean Platelet Volume 9.1 fl (7.4-10.4); Monocytes Absolute Auto 0.4 K/mm3 (0.1-0.6); Monocytes Percent Auto 4.7 % (2.6-8.5); Neutrophils Absolute Auto 5.2 K/mm3 (1.3-6.7); Neutrophils Percent Auto 65.6 % (45.5-73.1); Platelet Count Result 274 k/mm3 (150-375); Red Blood Count 3.83 M/mm3 (4.6-6.20); Red Cell Distribution Width 15.5 % (11.5-14.5); White Blood Count 7.8 K/mm3 (4.5-10.0)
[2022-06-22 07:01] LABS: Anion Gap 19 mmol/L (8-16); Blood Urea Nitrogen 10 mg/dL (9-20); Calcium 9.2 mg/dL (8.4-10.2); Carbon Dioxide 23 mmol/L (22-30); Chloride 98 mmol/L (98-107); Estimated CRCL calculation 97 ml/min; Estimated Glomerular Filt Rate > 60; Glucose 57 mg/dL (65-110); Magnesium 1.9 mg/dL (1.6-2.3); Potassium 4.2 mmol/L (3.4-5.0); Sodium 140 mmol/L (137-145)
[2022-06-22 07:56] LABS: Glucose Point of Care 85 mg/dl (65-105)
[2022-06-22] MEDS: PANTOPRAZOLE SODIUM IV 40 MG VIAL IV PUSH (08:57)
[2022-06-22] MEDS: predniSONE 2.5 MG TABLET 7.5 MG FEED TUBE (09:03)
[2022-06-22] MEDS: MEGESTROL ACETATE (*CHEMO) 20 MG TABLET FEED TUBE (09:04)
[2022-06-22] MEDS: MAGNESIUM OXIDE 200 MG TABLET 600 MG FEED TUBE (09:04)
[2022-06-22] MEDS: FOLIC ACID 1 MG TABLET 2 MG FEED TUBE (09:04)
[2022-06-22] MEDS: FUROSEMIDE 20 MG TABLET FEED TUBE (09:05)
[2022-06-22] MEDS: FLUTICASONE/SALMETEROL 115-21 MCG INHALER 1 PUFF 2 PUFF INHALATION ×2 (09:11→21:07)
[2022-06-22] MEDS: BACLOFEN 5 MG TABLET FEED TUBE ×3 (09:22→17:43)
[2022-06-22] MEDS: CELECOXIB 200 MG CAPSULE FEED TUBE ×2 (09:22→17:43)
--- NOTE | 2022-06-22 09:40 | PCNFU ---
Nutrition Follow-Up Complete: Severe malnutrition related to environmental factors of self-feeding difficulty, not getting assistance with meals and residential; and swallowing issues as evidenced by social circumstances and swallow report, Weight loss -19%/1 year, severe muscle wasting and fat loss, need for full tube feeding. Goal: Adequate PO intake at least 75% meals - Not able to meet goal PO NEW GOAL: Tolerate tube feeding at goal rate Pt current nutrition is NPO. Nutrition recommendation: Jevity 1.5 @ 20 ml/h. Advance to goal rate 45 ml/h by 10 ml q 8 hours as tolerated. Provides 1485 kcals, 63 g protein, 760 ml free water. Flushes 100 ml q 4 hours. Total water 1360 ml/day Recommend discontinuing Megace as patient is starting full tube feeding and appetite stimulant is not needed. Recommend thiamine 200-300 mg daily, Vit B complex 3x daily, MV/MN supplement daily to prevent refeeding syndrome. Last recorded weight is 50.4 kg. Bowel Motility: Colostomy. Given miralax because of stool retention Labs Reviewed: Na 140, K 4.2. Meds Noted: [place], folic acid, Lasix, Megace, Zofran, miralax, predisone Skin: WNL Additional Notes: Pt was made NPO after MBSS. Evaluated by surgery, he is not a surgical candidate for a PEG at this time due to previous abdominal surgeries. NG placed. Tube feeding to initiate. Following for prison tube feeding plan as most nursing homes will not take a patient on an NG feeding. Electrolytes look good, started tube feeding at <50% goal to avoid refeeding syndrome. Monitor intakes, weights, plan of care, labs, tube feeding tolerance Follow up Tuesdays and Fridays per policy
--- NOTE | 2022-06-22 10:08 | PM.PNGS ---
Progress Note: A&P Assessment and Plan (1) Adult failure to thrive: Code(s): R62.7 - Adult failure to thrive Status: Acute Assessment and Plan: Continue tube feeds and speech therapy. Patient wants to try the swallowing exercises for a few days to see if his swallowing can improve. This will hopefully also improve with increased nutrition. Will await G-tube placement for any further problems with tube feeding or swallowing. If patient chooses to proceed with G-tube then will schedule open gastrostomy tube placement. (2) Malnutrition: Code(s): E46 - Unspecified protein-calorie malnutrition Status: Acute (3) Schizoaffective disorder: Code(s): F25.9 - Schizoaffective disorder, unspecified Status: Acute (4) Rheumatoid arthritis: Code(s): M06.9 - Rheumatoid arthritis, unspecified Status: Acute (5) Weight loss: Code(s): R63.4 - Abnormal weight loss Status: Acute (6) Flexion contractures: Code(s): M24.50 - Contracture, unspecified joint Status: Acute Subjective Subjective Date/Time Seen: 06/22/22 10:08 Interval history: Tolerating NG tube. No abdominal pain. Exam GI: Inspection: scaphoid GI Palp: No abdominal tenderness and Yes Soft to palpation Objective Data Vital Signs Vital Signs: Vital Signs - 24 hr 06/21/22 10:20 06/21/22 13:54 06/21/22 21:21 Temperature 36.4 C L Pulse Rate 85 Respiratory Rate 18 Blood Pressure 116/64 Pulse Oximetry 97 99 98 Oxygen Delivery Room Air Room Air 06/21/22 22:00 06/21/22 20:00 06/22/22 06:00 Temperature 36.3 C L 36.1 C L Pulse Rate 67 67 56 L Respiratory Rate 17 17 16 Blood Pressure 119/66 105/58 L Pulse Oximetry 95 95 99 Oxygen Delivery Room Air Intake/Output Intake/Output: Intake & Output 06/19/22 06/20/22 06/21/22 06/22/22 23:59 23:59 23:59 23:59 Intake Total 2550 1520 480 Output Total 1250 2650 700 Balance 1300 -1130 -220 Meds/Results Medications: Active Medications Generic Name Dose Route Start Last Admin Trade Name Freq PRN Reason Stop Dose Admin Hydrocodone Bitart/Acetaminophen 1 tab 06/21/22 14:43 06/22/22 09:32 Hydrocodone/Acetaminophen (*Crx) 10-325 Mg Tablet FEED TUBE 1 tab Q6H PRN Administration Pain Rated 7-10 Albuterol 1 puff 06/19/22 12:35 06/20/22 10:09 Albuterol Sulfate (*Sp) Aerosol 1 Puff INHALATION 1 puff Q4H PRN Administration Shortness Of Breath Baclofen 5 mg 06/21/22 17:00 06/22/22 09:22 Baclofen 5 Mg Tablet FEED TUBE 5 mg TID CELIA Administration Celecoxib 200 mg 06/21/22 17:00 06/22/22 09:22 Celecoxib 200 Mg Capsule FEED TUBE 200 mg BIDWM CELIA Administration Folic Acid 2 mg 06/22/22 09:00 06/22/22 09:04 Folic Acid 1 Mg Tablet FEED TUBE 2 mg DAILY CELIA Administration Furosemide 20 mg 06/22/22 09:00 06/22/22 09:05 Furosemide 20 Mg Tablet FEED TUBE 20 mg DAILY CELIA Administration Magnesium Oxide 600 mg 06/22/22 09:00 06/22/22 09:04 Magnesium Oxide 200 Mg Tablet FEED TUBE 600 mg DAILY CELIA Administration Megestrol Acetate 20 mg 06/21/22 17:00 06/22/22 09:04 Megestrol Acetate (*Chemo) 20 Mg Tablet FEED TUBE 20 mg BID CELIA Administration Ondansetron HCl 4 mg 06/19/22 21:11 06/21/22 16:40 Ondansetron Inj 4 Mg/2 Ml Vial IV PUSH 4 mg Q6H PRN Administration Nausea And Vomiting Pantoprazole Sodium 40 mg 06/21/22 09:00 06/22/22 08:57 Pantoprazole Sodium Iv 40 Mg Vial IV PUSH 40 mg QAM CELIA Administration Polyethylene Glycol 17 gm 06/21/22 14:44 Polyethylene Glycol 3350 17 Gm Powd.Pack FEED TUBE QAM PRN Constipation Prednisone 7.5 mg 06/22/22 08:00 06/22/22 09:03 Prednisone 2.5 Mg Tablet FEED TUBE 7.5 mg DAILY@0800 CELIA Administration Fluticasone/Salmeterol 2 puff 06/19/22 20:00 06/22/22 09:11 Fluticasone/Salmeterol 115-21 Mcg Inhaler 1 Puff INHALATION 2 puff Q12HRT
[2022-06-22] MEDS: ONDANSETRON INJ 4 MG/2 ML VIAL IV PUSH (11:40)
--- NOTE | 2022-06-22 13:04 | PM.IMPN ---
Progress Note: A&P Assessment and Plan (1) Flexion contractures: Code(s): M24.50 - Contracture, unspecified joint Status: Acute (2) Schizoaffective disorder: Code(s): F25.9 - Schizoaffective disorder, unspecified Status: Acute (3) Weight loss: Code(s): R63.4 - Abnormal weight loss Status: Acute (4) Adult failure to thrive: Code(s): R62.7 - Adult failure to thrive Status: Acute (5) Malnutrition: Code(s): E46 - Unspecified protein-calorie malnutrition Status: Acute (6) Colostomy in place: Code(s): Z93.3 - Colostomy status Status: Acute (7) Debility: Code(s): R53.81 - Other malaise Status: Acute Plan 06/19/22 admit to med surg. Vital signs per protocol. Normal saline low-dose. NPO until evaluated Supportive care Zofran p.r.n. IV Tylenol p.r.n. Consult Gastroenterology Consult speech therapy If patient able to pass swallow eval, will initiate calorie count and dietary consult patient will need assistance with feeding when diet restarted megace BID Continue home medications when confirmed to safely take p.o. will consult general surgery for G tube insertion if unable to swallow or maintain caloric requirements. 06/20/22 seen by credit clerk and recs appreciated seen by ST and pt failed swallow eval NPO c/s Surgeon for G tube placement anticipate return to [place] after G tube placed LR supportive care am labs 06/22/22 patient wants to proceed with enteral feeding so NG tube was placed. Tube feedings have been started. Discussed with industrial gas fitter helper. Will add vitamins given the concern for E feeding syndrome. Plan to re-evaluate his swallowing in a few days. If he has persistent dysphagia and will proceed with surgical G-tube placement. Discussed with General surgery. Apparently he is too high risk for EGD and G-tube placement. Will hold Lasix. Serum bicarb okay but AG 19 possibly from ketosis. Subjective Date/time seen: 06/22/22 13:04 Interval history: 57yo male with schizoaffective disorder, severe flexion contractions and failure to thrive here for abdominal pain. Assuming care. Chart reviewed. Patient denies any chest pain shortness of breath. Nausea that is chronic but no vomiting. TF started and toelrating low dose. Voiding well without sensation of urine retention Exam Narrative: AF 97.0 105/58 56 16 99% RA Gen - thin, cachectic-appearing male no acute distress HEENT - NG tube secured. Chest - lungs clear anteriorly and the flanks. normal respiratory CV - RRR S1/S2 Abd - soft, scaphoid. colostomy noted left of midline with scant stool in bag. Bladder not distended. Ext - No pedal edema Neuro - Alert and appropriate. Flexion contractions noted hips, knees and hands. Skin - Warm and dry Objective Data Vital Signs Vital Signs: Vital Signs - 24 hr 06/21/22 13:54 06/21/22 21:21 06/21/22 22:00 Temperature 97.5 F L 97.3 F L Pulse Rate 85 67 Respiratory Rate 18 17 Blood Pressure 116/64 119/66 Pulse Oximetry 99 98 95 Oxygen Delivery Room Air 06/21/22 20:00 06/22/22 06:00 Temperature 97 F L Pulse Rate 67 56 L Respiratory Rate 17 16 Blood Pressure 105/58 L Pulse Oximetry 95 99 Oxygen Delivery Room Air Intake/Output Intake/Output: Intake & Output 06/19/22 06/20/22 06/21/22 06/22/22 23:59 23:59 23:59 23:59 Intake Total 2550 1520 480 Output Total 1250 2650 700 Balance 1300 -1130 -220 Meds/Results Medications: Active Medications Generic Name Dose Route Start Last Admin Trade Name Freq PRN Reason Stop Dose Admin Hydrocodone Bitart/Acetaminophen 1 tab 06/21/22 14:43 06/22/22 09:32 Hydrocodone/Acetaminophen (*Crx) 10-325 Mg Tablet FEED TUBE 1 tab Q6H PRN Administration Pain Rated 7-10 Albuterol 1 puff 06/19/22 12:35 06/20/22 10:09 Albuterol Sulfate (*Sp) Aerosol 1 Puff INHALATION 1 puff Q4H PRN Administration Shortness Of Br
[2022-06-22 14:00] VITALS: BP 96/64; PULSE 64; RESP 18; TEMP 37.1; O2SAT 100
[2022-06-22] MEDS: VITAMIN B COMPLEX CAPSULE 1 CAP FEED TUBE (17:43)
[2022-06-22 21:09] VITALS: PULSE 69; RESP 14
[2022-06-22 22:00] VITALS: BP 112/65; PULSE 77; RESP 19; TEMP 36.6; O2SAT 97
[2022-06-23] MEDS: HYDROcodone/acetaminophen (*CRX) 10-325 MG TABLET 1 TAB FEED TUBE ×3 (03:00→19:53)
[2022-06-23 03:12] LABS: Glucose Point of Care 97 mg/dl (65-105)
[2022-06-23 06:00] VITALS: BP 107/75; PULSE 91; RESP 14; TEMP 36.4; O2SAT 94
[2022-06-23 06:29] LABS: Glucose Point of Care 90 mg/dl (65-105)
--- NOTE | 2022-06-23 06:39 | PC.NURSE ---
At 4:00 a.m. feeding was discontinued due to severe levels of nausea as stated by the patient.
[2022-06-23 06:45] LABS: Albumin Level 3.9 g/dL (3.5-5.1); Anion Gap 12 mmol/L (8-16); Blood Urea Nitrogen 13 mg/dL (9-20); Calcium 8.9 mg/dL (8.4-10.2); Carbon Dioxide 27 mmol/L (22-30); Chloride 96 mmol/L (98-107); Estimated CRCL calculation 97 ml/min; Estimated Glomerular Filt Rate > 60; Glucose 84 mg/dL (65-110); Magnesium 2.1 mg/dL (1.6-2.3); Phosphorus 3.9 mg/dL (2.5-4.5); Potassium 3.7 mmol/L (3.4-5.0); Sodium 135 mmol/L (137-145)
[2022-06-23 06:53] LABS: Basophils Absolute Auto 0.1 K/mm3 (0.0-0.1); Basophils Percent Auto 0.6 % (0.2-1.2); Eosinophils Absolute Auto 0.3 K/mm3 (0-0.3); Eosinophils Percent Auto 3.9 % (0-4.4); Hematocrit 35.7 % (42.0-52.0); Hemoglobin 11.1 g/dL (14.0-18.0); Immature Granulocyte Absolute 0.03 K/mm3 (0.00-0.031); Immature Granulocyte Percent A 0.4 % (0-0.5); Lymphocytes Percent Auto 21.9 % (18.3-44.2); Mean Corpuscular HGB Conc 31.1 g/dl (32-36); Mean Corpuscular Hemoglobin 26.9 pg (26-34); Mean Corpuscular Volume 86.7 fl (80-100); Mean Platelet Volume 9.8 fl (7.4-10.4); Monocytes Absolute Auto 0.4 K/mm3 (0.1-0.6); Monocytes Percent Auto 5.3 % (2.6-8.5); Neutrophils Absolute Auto 5.3 K/mm3 (1.3-6.7); Neutrophils Percent Auto 67.9 % (45.5-73.1); Platelet Count Result 315 k/mm3 (150-375); Red Blood Count 4.12 M/mm3 (4.6-6.20); Red Cell Distribution Width 15.4 % (11.5-14.5); White Blood Count 7.8 K/mm3 (4.5-10.0)
[2022-06-23] MEDS: PANTOPRAZOLE SODIUM IV 40 MG VIAL IV PUSH (09:41)
--- NOTE | 2022-06-23 10:49 | PM.PNGS ---
Progress Note: A&P Assessment and Plan (1) Adult failure to thrive: Code(s): R62.7 - Adult failure to thrive Status: Acute Assessment and Plan: Patient independently removed NG tube this morning and ate breakfast. He would like to keep the NG tube out. A repeat modified barium swallow has been ordered today. Will await results. If he continues to have issues with swallowing and the patient would like to proceed, then we may schedule open gastrostomy tube placement. (2) Malnutrition: Code(s): E46 - Unspecified protein-calorie malnutrition Status: Acute (3) Schizoaffective disorder: Code(s): F25.9 - Schizoaffective disorder, unspecified Status: Acute (4) Rheumatoid arthritis: Code(s): M06.9 - Rheumatoid arthritis, unspecified Status: Acute (5) Weight loss: Code(s): R63.4 - Abnormal weight loss Status: Acute (6) Flexion contractures: Code(s): M24.50 - Contracture, unspecified joint Status: Acute Plan I have discussed the patient's case and plan of care with Dr. Rene. Subjective Subjective Date/Time Seen: 06/23/22 09:49 Interval history: Patient seen and examined this morning. When entering the room, the patient did not have an NG tube in and was finishing a plate of food. He was finishing his last bite when I walked into the room. He started to have some nausea and a sore throat over night that he attributed to the NG tube. On his own, he decided to slowly removed the NG tube when staff was no longer in the room. The NG tube is at the bedside on the floor now. He states that he then called down to dietary and received a breakfast tray after pulling his NG tube. He has now completed his breakfast. I then went and spoke with the nurse, who was unaware that he had pulled out his NG tube. This was in place earlier this morning. His ostomy is functioning and he denies any abdominal pain or other complaints at this time. He feels the sore throat is better now that the tube is out. He no longer feels nauseous and tolerated his breakfast. Review of Systems Review of Systems: All systems reviewed & are unremarkable except as noted in HPI and below Exam Const: General: comfortable, no acute distress, malnourished and thin Orientation/consciousness: patient oriented x3 GI: Inspection: scaphoid and other (Ostomy functioning with stool at stoma, 100 cc out overnight) GI Palp: Yes Soft to palpation, Yes Tenderness to palpation present (GI) (Very mild tenderness in right lower quadrant) and No Guarding due to palpation present (GI) Auscultation: normal bowel sounds Extrem: Right upper extremity: Extremity exam: right hand (contracted) Left upper extremity: hand (contracted) Right lower extremity: abnormal to inspection (contracted with very minimal movement) Left lower extremity: abnormal to inspection (contracted with no ability for active ROM) Psych: Mental Status: mental status grossly normal Insight: Fair insight present (Psych) Judgement: Poor judgement present (Psych) Objective Data Vital Signs Vital Signs: Vital Signs - 24 hr 06/22/22 14:00 06/22/22 21:09 06/22/22 21:45 Temperature 98.7 F Pulse Rate 64 69 Respiratory Rate 18 14 Blood Pressure 96/64 L Pulse Oximetry 100 Oxygen Delivery Room Air 06/22/22 22:00 06/23/22 06:00 Temperature 97.9 F 97.6 F Pulse Rate 77 91 Respiratory Rate 19 14 Blood Pressure 112/65 107/75 Pulse Oximetry 97 94 Oxygen Delivery Intake/Output Intake/Output: Intake & Output 06/20/22 06/21/22 06/22/22 06/23/22 23:59 23:59 23:59 23:59 Intake Total 2550 1520 480 240 Output Total 1250 2650 2200 850 Balance 1300 -1130 -1720 -610 Meds/Results Medications: Active Medications Generic Name Dose Route Start Last Admin Trade Name Freq PRN Reason Stop Dose Admin Hydrocodone Bitart/Acetaminophen 1 tab 06/21/22 14:43 06/23/22 03:00 Hydrocodone/Acetaminophen
[2022-06-23] MEDS: ENOXAPARIN 40 MG/0.4 ML SYRINGE SUB-Q (10:52)
--- NOTE | 2022-06-23 11:02 | PC.NURSE ---
Pt pulled out NG tube this morning and ordered a meal tray from the kitchen. This nurse is unsure how the meal tray got to pt when diet order was in for tube feeding diet. Called and talked to Dr. Calabrese about findings. Pt ate the whole tray. told me to make pt npo and order another MBS for today. Talked to Kimberley and she stated she will be at this hospital at noon. She recommended that I try moderately thickened liquid with his pain medication. Pt is in 10/10 pain at this time. Will follow per recommendations.
[2022-06-23] MEDS: THERAPEUTIC MULTIVITAMINS/MINERALS TAB (*BKC) 1 TABLET FEED TUBE (12:27)
[2022-06-23] MEDS: MAGNESIUM OXIDE 200 MG TABLET 600 MG FEED TUBE (12:27)
[2022-06-23] MEDS: CELECOXIB 200 MG CAPSULE FEED TUBE (12:27)
[2022-06-23] MEDS: BACLOFEN 5 MG TABLET FEED TUBE ×2 (12:28→16:35)
[2022-06-23] MEDS: predniSONE 2.5 MG TABLET 7.5 MG FEED TUBE (12:28)
[2022-06-23] MEDS: FOLIC ACID 1 MG TABLET 2 MG FEED TUBE (12:29)
[2022-06-23] MEDS: MEGESTROL ACETATE (*CHEMO) 20 MG TABLET FEED TUBE (12:30)
[2022-06-23 14:00] VITALS: BP 102/69; PULSE 61; RESP 18; TEMP 36.7; O2SAT 95
--- NOTE | 2022-06-23 15:28 | PCSTNOTE ---
Please refer to the Modified Barium Swallow Evaluation in the EMR.
--- NOTE | 2022-06-23 15:44 | PM.IMPN ---
Progress Note: A&P Assessment and Plan (1) Dysphagia: Code(s): R13.10 - Dysphagia, unspecified Status: Acute (2) Flexion contractures: Code(s): M24.50 - Contracture, unspecified joint Status: Acute (3) Schizoaffective disorder: Code(s): F25.9 - Schizoaffective disorder, unspecified Status: Acute (4) Weight loss: Code(s): R63.4 - Abnormal weight loss Status: Acute (5) Adult failure to thrive: Code(s): R62.7 - Adult failure to thrive Status: Acute (6) Malnutrition: Code(s): E46 - Unspecified protein-calorie malnutrition Status: Acute (7) Colostomy in place: Code(s): Z93.3 - Colostomy status Status: Acute (8) Debility: Code(s): R53.81 - Other malaise Status: Acute (9) Rheumatoid arthritis: Code(s): M06.9 - Rheumatoid arthritis, unspecified Status: Acute (10) Ankylosing spondylitis: Code(s): M45.9 - Ankylosing spondylitis of unspecified sites in spine Status: Acute (11) Bedbound: Code(s): Z74.01 - Bed confinement status Status: Acute Plan 06/19/22 admit to med surg. Vital signs per protocol. Normal saline low-dose. NPO until evaluated Supportive care Zofran p.r.n. IV Tylenol p.r.n. Consult Gastroenterology Consult speech therapy If patient able to pass swallow eval, will initiate calorie count and dietary consult patient will need assistance with feeding when diet restarted megace BID Continue home medications when confirmed to safely take p.o. will consult general surgery for G tube insertion if unable to swallow or maintain caloric requirements. 06/20/22 seen by sales team leader and recs appreciated seen by ST and pt failed swallow eval NPO c/s Surgeon for G tube placement anticipate return to [place] after G tube placed LR supportive care am labs 06/22/22 patient wants to proceed with enteral feeding so NG tube was placed. Tube feedings have been started. Discussed with power shovel operator. Will add vitamins given the concern for E feeding syndrome. Plan to re-evaluate his swallowing in a few days. If he has persistent dysphagia and will proceed with surgical G-tube placement. Discussed with General surgery. Apparently he is too high risk for EGD and G-tube placement. Will hold Lasix. Serum bicarb okay but AG 19 possibly from ketosis. 06/23/22 Patient appeared to tolerate oral intake without difficulty. As such were repeated the modified barium swallow this again showed the patient has aspiration. It was recommended that he continue non oral feeding. Patient is alert and oriented but he requests that I speak with his family abit next steps. No answer and message was left. Start IV fluids. Hold on replacing NGT until discussed. Will discuss with surgery about placing GTube if family wishes to proceed. Subjective Date/time seen: 06/23/22 15:44 Interval history: 57yo male with schizoaffective disorder, severe flexion contractions and failure to thrive here for abdominal pain. Patient removed his NGT this morning. He was able to call down to dietary and order a meal. He actually was able to feed himself eggs, oatmeal, coffee and rose. No n/v. he denies odynophagia or dysphagia. Exam Narrative: AF 98.1 102/69 611 8 95% RA Gen - thin, cachectic-appearing male no acute distress Chest - lungs clear anteriorly and the flanks. normal respiratory rate CV - RRR S1/S2 Abd - soft, scaphoid. colostomy noted left of midline with no stool in bag. Bladder not distended. Ext - No pedal edema Neuro - Alert and appropriate. Flexion contractions noted hips, knees and hands. AOx4. Skin - Warm and dry Objective Data Vital Signs Vital Signs: Vital Signs - 24 hr 06/22/22 21:09 06/22/22 21:45 06/22/22 22:00 Temperature 97.9 F Pulse Rate 69 77 Respiratory Rate 14 19 Blood Pressure 112/65 Pulse Oximetry 97 Oxygen Delivery Room Air 06/23/22 06:00
[2022-06-23] MEDS: KCL 20 MEQ/D5/0.9% SOD CHL 1,000 ML 60 ML IV CONT (17:14)
[2022-06-23] MEDS: ONDANSETRON INJ 4 MG/2 ML VIAL IV PUSH (21:19)
--- NOTE | 2022-06-23 21:56 | PCRCNOTE ---
Patient refused Advair inhaler for 1999 on 06/23/22 stating he was nauseous. Unable to chart refused in the mar due to another green party charting on it.
[2022-06-23 22:00] VITALS: BP 111/64; PULSE 73; RESP 16; TEMP 36; O2SAT 99
[2022-06-24 06:00] VITALS: BP 116/69; PULSE 78; RESP 16; TEMP 36.1; O2SAT 100
[2022-06-24 07:00] LABS: Anion Gap 10 mmol/L (8-16); Blood Urea Nitrogen 13 mg/dL (9-20); Calcium 8.8 mg/dL (8.4-10.2); Carbon Dioxide 26 mmol/L (22-30); Chloride 101 mmol/L (98-107); Estimated CRCL calculation 97 ml/min; Estimated Glomerular Filt Rate > 60; Glucose 91 mg/dL (65-110); Potassium 3.8 mmol/L (3.4-5.0); Sodium 137 mmol/L (137-145)
[2022-06-24] MEDS: PANTOPRAZOLE SODIUM IV 40 MG VIAL IV PUSH (09:05)
[2022-06-24] MEDS: ENOXAPARIN 40 MG/0.4 ML SYRINGE SUB-Q (09:05)
--- NOTE | 2022-06-24 10:13 | PCNFU ---
Nutrition Follow-Up Complete: Severe malnutrition related to environmental factors of self-feeding difficulty, not getting assistance with meals and mcfp; and swallowing issues as evidenced by social circumstances and swallow report, Weight loss -19%/1 year, severe muscle wasting and fat loss. Goal: Meet estimated needs Pt current nutrition is NPO, was on tube feeding. Nutrition recommendation: Resume tube feeding if PEG is placed Last recorded weight is 50.4 kg - stable at this time. Bowel Motility: no recent BM recorded, last one was 06/21 Labs Reviewed: Hgb:11.1, HCT:35.7, Cr:0.5 Meds Noted:lovenox, zofran, protonix, prednisone Skin: no pressure areas noted Additional Notes: pt pulled NGT out, has not been replaced at this time. Discussions for PEG placement, waiting for family to make decision. Recommend to resume tube feeds of Jevity 1.5 @ goal rate 45 ml/h if PEG is placed, to provide 1485 kcals, 63 g protein, 760 ml free water. Flushes 100 ml q 4 hours. Total water 1360 ml/day. monitor tube feeds, wt, labs. Follow up every /Monday
--- NOTE | 2022-06-24 10:18 | PCDIET ---
If pt is to resume tube feeds either through NGT or PEG, Recommend to resume tube feeds of Jevity 1.5 @ goal rate 45 ml/hr with 100ml flush q 4 hrs, to provide 1485 kcals, 63 g protein, 1360 ml free water / day.
[2022-06-24] MEDS: KCL 20 MEQ/D5/0.9% SOD CHL 1,000 ML 60 ML IV CONT (11:11)
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
[2022-06-24] MEDS: HYDROCORTISONE SODIUM SUCCINATE 100 MG/2 ML VIAL 25 MG IV PUSH ×2 (13:37→21:41)
[2022-06-24 14:00] VITALS: BP 103/67; PULSE 66; RESP 20; TEMP 36.8; O2SAT 100
--- NOTE | 2022-06-24 14:23 | PCSTNOTE ---
Speech Therapy frequency initially was set up for 2-3x weekly as patient was in denial of deficits and cooperation was not assured. Patient did exhibit good cooperation during treatment session and the next day reported that he was addressing the exercises independently. As a result, patient's frequency is being increased to 3-5x weekly to address strengthening exercises. Dr. Calabrese in agreement with request to increase frequency.
[2022-06-24] MEDS: HYDROcodone/acetaminophen (*CRX) 10-325 MG TABLET 1 TAB FEED TUBE ×2 (17:32→22:50)
[2022-06-24] MEDS: MEGESTROL ACETATE (*CHEMO) 20 MG TABLET FEED TUBE (17:34)
[2022-06-24] MEDS: BACLOFEN 5 MG TABLET FEED TUBE (17:34)
[2022-06-24] MEDS: THIAMINE HCL 100 MG TABLET FEED TUBE (17:34)
[2022-06-24] MEDS: VITAMIN B COMPLEX CAPSULE 1 CAP FEED TUBE (17:34)
[2022-06-24] MEDS: CELECOXIB 200 MG CAPSULE FEED TUBE (17:34)
[2022-06-24] MEDS: FLUTICASONE/SALMETEROL 115-21 MCG INHALER 1 PUFF 2 PUFF INHALATION (19:38)
[2022-06-24 19:41] VITALS: PULSE 71; RESP 16
[2022-06-24 22:00] VITALS: BP 120/61; PULSE 82; RESP 15; TEMP 36.7; O2SAT 99
[2022-06-24] MEDS: traZODone HCL 50 MG TABLET FEED TUBE (22:50)
[2022-06-25] MEDS: HYDROCORTISONE SODIUM SUCCINATE 100 MG/2 ML VIAL 25 MG IV PUSH (05:03)
[2022-06-25] MEDS: HYDROcodone/acetaminophen (*CRX) 10-325 MG TABLET 1 TAB FEED TUBE ×2 (05:03→11:26)
[2022-06-25 06:00] VITALS: BP 97/61; PULSE 69; RESP 16; TEMP 36.5; O2SAT 99
[2022-06-25] MEDS: ENOXAPARIN 40 MG/0.4 ML SYRINGE SUB-Q (08:42)
[2022-06-25] MEDS: PANTOPRAZOLE SODIUM IV 40 MG VIAL IV PUSH (08:42)
[2022-06-25] MEDS: MAGNESIUM OXIDE 200 MG TABLET 600 MG FEED TUBE (08:42)
[2022-06-25] MEDS: CELECOXIB 200 MG CAPSULE FEED TUBE (08:43)
[2022-06-25] MEDS: THERAPEUTIC MULTIVITAMINS/MINERALS TAB (*BKC) 1 TABLET FEED TUBE (08:43)
[2022-06-25] MEDS: MEGESTROL ACETATE (*CHEMO) 20 MG TABLET FEED TUBE (08:43)
[2022-06-25] MEDS: FOLIC ACID 1 MG TABLET 2 MG FEED TUBE (08:43)
[2022-06-25] MEDS: THIAMINE HCL 100 MG TABLET FEED TUBE (08:43)
[2022-06-25] MEDS: BACLOFEN 5 MG TABLET FEED TUBE ×2 (08:43→13:33)
[2022-06-25] MEDS: KCL 20 MEQ/D5/0.9% SOD CHL 1,000 ML 60 ML IV CONT (09:00)
[2022-06-25] MEDS: FLUTICASONE/SALMETEROL 115-21 MCG INHALER 1 PUFF 2 PUFF INHALATION (10:19)
[2022-06-25 10:46] LABS: Hematocrit 34.9 % (42.0-52.0); Hemoglobin 10.7 g/dL (14.0-18.0); Mean Corpuscular HGB Conc 30.7 g/dl (32-36); Mean Corpuscular Hemoglobin 26.5 pg (26-34); Mean Corpuscular Volume 86.4 fl (80-100); Mean Platelet Volume 9.5 fl (7.4-10.4); Platelet Count Result 289 k/mm3 (150-375); Red Blood Count 4.04 M/mm3 (4.6-6.20); Red Cell Distribution Width 15.7 % (11.5-14.5); White Blood Count 8.4 K/mm3 (4.5-10.0)
[2022-06-25 10:57] LABS: Albumin Level 3.6 g/dL (3.5-5.1); Anion Gap 9 mmol/L (8-16); Blood Urea Nitrogen 11 mg/dL (9-20); Calcium 8.5 mg/dL (8.4-10.2); Carbon Dioxide 25 mmol/L (22-30); Chloride 106 mmol/L (98-107); Estimated CRCL calculation 109 ml/min; Estimated Glomerular Filt Rate > 60; Glucose 145 mg/dL (65-110); Phosphorus 2.4 mg/dL (2.5-4.5); Potassium 3.9 mmol/L (3.4-5.0); Sodium 140 mmol/L (137-145)
[2022-06-25 11:03] VITALS: O2SAT 99
--- NOTE | 2022-06-25 12:20 | PM.IMPN ---
Progress Note: A&P Assessment and Plan (1) Dysphagia: Code(s): R13.10 - Dysphagia, unspecified Status: Acute Assessment and Plan: Patient with dysphagia. Chest x-ray on admission showed left upper lobe infiltrate which has been present for over a month. He also had a right lower lobe infiltrate. Abdominal x-ray yesterday does show the lung bases are clear now so probably right lower lobe infiltrate was atelectasis. No fevers, cough or elevated white count to suggest pneumonia. patient was unsure how to proceed so we placed NG tube with plans to retest the patient in a few days. Patient however removed NG tube on his own accord. Patient was able to obtain food and fed himself the other day. He seemed to tlerate the oral iintake so we did repeat the modified barium swallow but this continued to show that the patient is high risk for aspiration. NG tube was replaced. Have been difficult time contacting brother to determine how to proceed. Continue NG tube feedings. Will try to contact family again today. (2) Flexion contractures: Code(s): M24.50 - Contracture, unspecified joint Status: Acute Assessment and Plan: Flexion contractures related to ankylosing spondylitis and rheumatoid arthritis. despite his debility, he was able to the feed himself the other day. (3) Schizoaffective disorder: Code(s): F25.9 - Schizoaffective disorder, unspecified Status: Acute Assessment and Plan: Mood stable. Patient is not on medications for his schizoaffective disorder. Follow along (4) Weight loss: Code(s): R63.4 - Abnormal weight loss Status: Acute Assessment and Plan: patient with weight loss and failure to thrive. He has demonstrated that he can feed himself. weight loss may be related to his multiple abdominal surgeries. No evidence of suspicious findings concern for cancer. He has had a CT of his chest month ago as well as a CT of his abdomen pelvis earlier this admission. Treatment as above. (5) Adult failure to thrive: Code(s): R62.7 - Adult failure to thrive Status: Acute Assessment and Plan: As above. (6) Malnutrition: Code(s): E46 - Unspecified protein-calorie malnutrition Status: Acute Assessment and Plan: NG tube placed. Multivitamins started. (7) Colostomy in place: Code(s): Z93.3 - Colostomy status Status: Acute Assessment and Plan: Stool moving through his system. Recent KUB shows contrast in the colon so no evidence of obstruction or severe constipation. (8) Rheumatoid arthritis: Code(s): M06.9 - Rheumatoid arthritis, unspecified Status: Acute Assessment and Plan: Patient on chronic steroids. He is on stress dose steroids right now but will change back to his oral steroids and will per provide this through the NG-tube. (9) Ankylosing spondylitis: Code(s): M45.9 - Ankylosing spondylitis of unspecified sites in spine Status: Acute Assessment and Plan: As above Subjective Date/time seen: 06/25/22 12:20 Interval history: 57yo male with schizoaffective disorder, severe flexion contractions and failure to thrive here for abdominal pain. Patient is complain of abdominal pain. This seems to be chronic without change. Also has nausea that appears to be chronic. No change in the abdominal pain or nausea since resuming tube feedings. He did keep the NG tube Overnight. No chest pain. Exam Narrative: AF 97.7 97/61 69 16 99% RA Gen - thin, cachectic-appearing male NARD Chest - lungs clear anteriorly and in the flanks. normal respiratory rate CV - RRR S1/S2 Abd - soft, scaphoid. colostomy noted left of midline with light brown stool noted at the ostomy Ext - No pedal edema Neuro - Alert and appropriate. Flexion contractions noted hips, knees and hands Skin - Warm and dry Objective Data Vi
[2022-06-25] MEDS: POTASSIUM/PHOSPHORUS/SODIUM 1.5 GM PACKET 1 PACKET FEED TUBE (13:33)
[2022-06-25] MEDS: ACETAMINOPHEN ELIXIR 325 MG/10.15 ML UDC 650 MG FEED TUBE (13:33)
[2022-06-25 14:00] VITALS: BP 100/64; PULSE 62; RESP 16; TEMP 36.2; O2SAT 100
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
--- NOTE | 2022-06-25 16:20 | PC.NURSE ---
The patient requested that I help him find his envelope that the was missing. Upon searching the bedside table, I found 15 pills scattered in the pull out drawer. I called pharmacy to identify the pills. There are 5 blue pills that pharmacy identified as Tylenol PM extra strength. There are 10 yellow capsules that pharmacy verified as Swarm Extreme Energizer. Mell Chapa RN verified the pill count with me. I notified Dr. Calabrese that these pills were found in the patient possession.
--- NOTE | 2022-06-25 20:49 | PC.NURSE ---
When I rounded on my patients, Mr Hardik was very belligerant, and wanted me to bring him some food. I apologized and told him that since he had failed 2 swallow studies, I could not do that. He was yelling as I left the room. I tried to call his brother, and did not get an answer. In the meantime, he called the law, and they told us to move his phone to where he could not reach it, so that is what we did.
[2022-06-25 21:26] VITALS: BP 115/63; PULSE 64; RESP 20; TEMP 36.8; O2SAT 98
--- NOTE | 2022-06-25 21:48 | PCRCNOTE ---
Window of time for administration has passed. See next scheduled administration.
[2022-06-26 05:45] VITALS: BP 106/68; PULSE 72; RESP 20; TEMP 36.5; O2SAT 99
[2022-06-26 09:26] LABS: Glucose Point of Care 78 mg/dl (65-105)
[2022-06-26] MEDS: FLUTICASONE/SALMETEROL 115-21 MCG INHALER 1 PUFF 2 PUFF INHALATION (10:30)
[2022-06-26 11:51] LABS: Glucose Point of Care 94 mg/dl (65-105)
[2022-06-26] MEDS: ONDANSETRON INJ 4 MG/2 ML VIAL IV PUSH (12:36)
[2022-06-26] MEDS: PANTOPRAZOLE SODIUM IV 40 MG VIAL IV PUSH (12:37)
--- NOTE | 2022-06-26 12:38 | PCSTNOTE ---
Patient refused speech therapy today, said he isn't feeling up to it. Told him we will be back tomorrow and he agreed.
--- NOTE | 2022-06-26 13:06 | PM.IMPN ---
Progress Note: A&P Assessment and Plan (1) Dysphagia: Code(s): R13.10 - Dysphagia, unspecified Status: Acute Assessment and Plan: Patient with dysphagia. Chest x-ray on admission showed left upper lobe infiltrate which has been present for over a month. He also had a right lower lobe infiltrate. Abdominal x-ray yesterday does show the lung bases are clear now so probably right lower lobe infiltrate was atelectasis. No fevers, cough or elevated white count to suggest pneumonia. Patient not able to comprehend options. He is agreeable for NGT but removes this himself later in the day. Unsure he would keep in a PEG tube. Discussed that the surgical PEG tube procedure could cause complications including and he voices understanding (but not sure he fully comprehends). Will keep him NPO. Continue IV fluids. Stress dose steroids. Plan for PEG tomorrow. Will try to reach family today. (2) Flexion contractures: Code(s): M24.50 - Contracture, unspecified joint Status: Acute Assessment and Plan: Flexion contractures related to ankylosing spondylitis and rheumatoid arthritis. Despite his debility, he was able to the feed himself the other day. (3) Schizoaffective disorder: Code(s): F25.9 - Schizoaffective disorder, unspecified Status: Acute Assessment and Plan: Mood stable. Patient is not on medications for his schizoaffective disorder. Follow along (4) Weight loss: Code(s): R63.4 - Abnormal weight loss Status: Acute Assessment and Plan: Patient with weight loss and failure to thrive. He has demonstrated that he can feed himself. Weight loss may be related to his multiple abdominal surgeries. No evidence of suspicious findings concern for cancer. He has had a Chest CT 1 month ago as well as a CT of his abdomen pelvis earlier this admission. Treatment as above. (5) Adult failure to thrive: Code(s): R62.7 - Adult failure to thrive Status: Acute Assessment and Plan: As above. (6) Malnutrition: Code(s): E46 - Unspecified protein-calorie malnutrition Status: Acute Assessment and Plan: NG tube out now. Resume Multivitamins when able. (7) Colostomy in place: Code(s): Z93.3 - Colostomy status Status: Acute Assessment and Plan: Stool moving through his system. Recent KUB shows contrast in the colon so no evidence of obstruction or severe constipation. (8) Rheumatoid arthritis: Code(s): M06.9 - Rheumatoid arthritis, unspecified Status: Acute Assessment and Plan: Patient on chronic steroids. He is on oral steroids per NGT but on hold now since NGT removed. Resume stress dose steroids. (9) Ankylosing spondylitis: Code(s): M45.9 - Ankylosing spondylitis of unspecified sites in spine Status: Acute Assessment and Plan: As above Subjective Date/time seen: 06/26/22 13:06 Interval history: 57yo male with schizoaffective disorder, severe flexion contractions and failure to thrive here for abdominal pain. Patient again removed his NGT. He is requesting it be re-inserted today or start a soft diet. He complains of nausea and pain around his colostomy site. Left message with brother yesterday. Exam Narrative: AF 97.7 106/68 72 20 99% RA Gen - thin, cachectic-appearing male NARD Chest - lungs clear anteriorly CV - RRR S1/S2 Abd - soft, scaphoid. colostomy noted left of midline with light brown stool noted at the ostomy Ext - No pedal edema Neuro - Alert and appropriate. He does fully comprehend options. Flexion contractions noted hips, knees and hands Skin - Warm and dry Objective Data Vital Signs Vital Signs: Vital Signs - 24 hr 06/25/22 14:00 06/25/22 21:26 06/26/22 05:45 Temperature 97.2 F L 98.3 F 97.7 F Pulse Rate 62 64 72 Respiratory Rate 16 20 20 Blood Pressure 100/64 115/63 106/68 Pulse Oximetry
[2022-06-26] MEDS: KCL 20 MEQ/D5/0.9% SOD CHL 1,000 ML 60 ML IV CONT (13:50)
[2022-06-26 14:00] VITALS: BP 110/70; PULSE 70; RESP 18; TEMP 36.7; O2SAT 99
[2022-06-26] MEDS: HYDROCORTISONE SODIUM SUCCINATE 100 MG/2 ML VIAL 25 MG IV PUSH ×2 (16:49→22:12)
[2022-06-26 21:39] VITALS: BP 108/61; PULSE 64; RESP 18; TEMP 37.3; O2SAT 99
[2022-06-27] VITALS (7 sets, daily range): BP systolic 109–131; BP diastolic 58–95; PULSE 61–86; RESP 12–20; TEMP 36.2–36.8; O2SAT 98–100
[2022-06-27] MEDS: KCL 20 MEQ/D5/0.9% SOD CHL 1,000 ML 60 ML IV CONT (05:21)
[2022-06-27] MEDS: HYDROCORTISONE SODIUM SUCCINATE 100 MG/2 ML VIAL 25 MG IV PUSH ×2 (05:21→22:39)
[2022-06-27 07:19] LABS: Basophils Percent Auto 0.6 % (0.2-1.2); Eosinophils Absolute Auto 0.1 K/mm3 (0-0.3); Eosinophils Percent Auto 0.7 % (0-4.4); Hemoglobin 11.2 g/dL (14.0-18.0); Immature Granulocyte Absolute 0.02 K/mm3 (0.00-0.031); Immature Granulocyte Percent A 0.3 % (0-0.5); Lymphocytes Absolute Auto 1.86 K/mm3 (0.9-3.2); Lymphocytes Percent Auto 26.6 % (18.3-44.2); Mean Corpuscular HGB Conc 30.3 g/dl (32-36); Mean Corpuscular Hemoglobin 26.6 pg (26-34); Mean Corpuscular Volume 87.9 fl (80-100); Mean Platelet Volume 10.4 fl (7.4-10.4); Monocytes Absolute Auto 0.2 K/mm3 (0.1-0.6); Monocytes Percent Auto 2.9 % (2.6-8.5); Neutrophils Absolute Auto 4.8 K/mm3 (1.3-6.7); Neutrophils Percent Auto 68.9 % (45.5-73.1); Platelet Count Result 330 k/mm3 (150-375); Red Blood Count 4.21 M/mm3 (4.6-6.20); Red Cell Distribution Width 16.1 % (11.5-14.5)
[2022-06-27 07:36] LABS: Alanine Aminotransferase 8 U/L (6-50); Albumin Level 3.8 g/dL (3.5-5.1); Alkaline Phosphatase 94 U/L (38-126); Anion Gap 14 mmol/L (8-16); Aspartate Amino Transferase 24 U/L (17-59); Bilirubin,Total 0.6 mg/dL (0.2-1.3); Blood Urea Nitrogen 12 mg/dL (9-20); Calcium 8.8 mg/dL (8.4-10.2); Carbon Dioxide 24 mmol/L (22-30); Chloride 105 mmol/L (98-107); Estimated CRCL calculation 90 ml/min; Estimated Glomerular Filt Rate > 60; Glucose 88 mg/dL (65-110); Phosphorus 3.8 mg/dL (2.5-4.5); Potassium 3.7 mmol/L (3.4-5.0); Sodium 143 mmol/L (137-145)
[2022-06-27] MEDS: FLUTICASONE/SALMETEROL 115-21 MCG INHALER 1 PUFF 2 PUFF INHALATION (08:37)
[2022-06-27 08:47] LABS: INR 1.1; Prothrombin Time 13.9 Seconds (11.1-14.7)
[2022-06-27 08:48] LABS: Partial Thromboplastin Time 35.5 SECONDS (22.3-36.8)
--- NOTE | 2022-06-27 09:04 | PM.PNGS ---
Progress Note: A&P Assessment and Plan (1) Dysphagia: Code(s): R13.10 - Dysphagia, unspecified Status: Acute Assessment and Plan: Patient has failed multiple swallow evals and continues to be an aspiration risk. Gastroenterology doesn't feel comfortable attempting PEG tube placement due to his previous abdominal surgeries. I discussed with patient that open G-tube placement could be difficult as well due to adhesions and current ostomy placement. Patient doesn't have any other method for superintendent container terminal enteral nutrition and does not want to consider Hospice at this time. Will proceed with open gastrostomy tube placement. I discussed that this g-tube must not be pulled out in the early postoperative period because it could lead to abdominal infection, sepsis, and even . Patient voiced his understanding. (2) Adult failure to thrive: Code(s): R62.7 - Adult failure to thrive Status: Acute (3) Flexion contractures: Code(s): M24.50 - Contracture, unspecified joint Status: Acute (4) Schizoaffective disorder: Code(s): F25.9 - Schizoaffective disorder, unspecified Status: Acute (5) Malnutrition: Code(s): E46 - Unspecified protein-calorie malnutrition Status: Acute Subjective Subjective Date/Time Seen: 06/27/22 09:04 Interval history: Patient has failed multiple swallow studies and continues to have signs of aspiration. Unable to get adequate nutrition. He has tried NG nutrition but pulled his NG out. Exam : Other: LLQ colostomy and large midline scar from previous bowel resection. Objective Data Vital Signs Vital Signs: Vital Signs - 24 hr 06/26/22 14:00 06/26/22 21:39 06/26/22 20:30 Temperature 36.7 C 37.3 C Pulse Rate 70 64 Respiratory Rate 18 18 Blood Pressure 110/70 108/61 Pulse Oximetry 99 99 Oxygen Delivery Room Air 06/27/22 05:40 Temperature 36.8 C Pulse Rate 86 Respiratory Rate 20 Blood Pressure 117/58 L Pulse Oximetry 100 Oxygen Delivery Intake/Output Intake/Output: Intake & Output 06/24/22 06/25/22 06/26/22 06/27/22 23:59 23:59 23:59 23:59 Intake Total 1300 1000 65 1000 Output Total 7034 002 7265 451 Balance 100 900 -1265 549 Meds/Results Medications: Active Medications Generic Name Dose Route Start Last Admin Trade Name Freq PRN Reason Stop Dose Admin Acetaminophen 650 mg 06/25/22 12:37 06/25/22 13:33 Acetaminophen Elixir 325 Mg/10.15 Ml Udc FEED TUBE 650 mg Q6H PRN Administration Mild Pain (1-3) or Fever Hydrocodone Bitart/Acetaminophen 1 tab 06/21/22 14:43 06/25/22 11:26 Hydrocodone/Acetaminophen (*Crx) 10-325 Mg Tablet FEED TUBE 1 tab Q6H PRN Administration Pain Rated 7-10 Albuterol 1 puff 06/19/22 12:35 06/20/22 10:09 Albuterol Sulfate (*Sp) Aerosol 1 Puff INHALATION 1 puff Q4H PRN Administration Shortness Of Breath Baclofen 5 mg 06/21/22 17:00 06/25/22 19:40 Baclofen 5 Mg Tablet FEED TUBE Not Given TID CELIA Celecoxib 200 mg 06/21/22 17:00 06/25/22 19:40 Celecoxib 200 Mg Capsule FEED TUBE Not Given BIDWM CELIA Enoxaparin Sodium 40 mg 06/23/22 09:00 06/26/22 16:50 Enoxaparin 40 Mg/0.4 Ml Syringe SUB-Q Not Given DAILY CELIA Folic Acid 2 mg 06/22/22 09:00 06/25/22 08:43 Folic Acid 1 Mg Tablet FEED TUBE 2 mg DAILY CELIA Administration Hydrocortisone Sodium Succinate 25 mg 06/26/22 14:00 06/27/22 05:21 Hydrocortisone Sodium Succinate 100 Mg/2 Ml Vial IV PUSH 25 mg Q8HR CELIA Administration Potassium Chloride/Dextrose/Sod Cl 1,000 mls @ 60 mls/hr 06/25/22 18:20 06/27/22 05:21 Kcl 20 Meq/D5/0.9% Sod Chl IV CONT 60 mls/hr .[id number] CELIA Administration Acetaminophen 650 mg in 65 mls @ 260 mls/hr 06/26/22 16:00 06/26/22 17:02 Ofirmev 650 Mg Ivpb IVPB Infused Q6H PRN Infusion Pain Magnesium Oxide 600 mg 06/22/22 09:00 06/25/22 08:42 Magnesium Oxide 200 Mg Tablet FEED
--- NOTE | 2022-06-27 13:07 | PM.IMPN ---
Progress Note: A&P Assessment and Plan (1) Dysphagia: Code(s): R13.10 - Dysphagia, unspecified Status: Acute Assessment and Plan: Patient with dysphagia. Chest x-ray on admission showed left upper lobe infiltrate which has been present for over a month. He also had a right lower lobe infiltrate. Abdominal x-ray does show the lung bases are clear now so probably right lower lobe infiltrate was atelectasis. No fevers, cough or elevated white count to suggest pneumonia. Patient not able to comprehend options. He is agreeable for NGT but removes this himself later in the day. Unsure he would keep in a PEG tube. Final decision is for PEG which is to be placed today. Start TF and resume meds when tube is ecured and okay with GenSurg. Appreciate GenSurg input (2) Flexion contractures: Code(s): M24.50 - Contracture, unspecified joint Status: Acute Assessment and Plan: Flexion contractures related to ankylosing spondylitis and rheumatoid arthritis. Despite his debility, he is able to the feed himself. (3) Schizoaffective disorder: Code(s): F25.9 - Schizoaffective disorder, unspecified Status: Acute Assessment and Plan: Mood stable. Patient is not on medications for his schizoaffective disorder. Follow along. May benefit from antipsychotic (4) Weight loss: Code(s): R63.4 - Abnormal weight loss Status: Acute Assessment and Plan: Patient with weight loss and failure to thrive. He has demonstrated that he can feed himself. Weight loss may be related to his multiple abdominal surgeries. No evidence of suspicious findings concern for cancer. He has had a Chest CT 1 month ago as well as a CT of his abdomen pelvis earlier this admission. Treatment as above. (5) Adult failure to thrive: Code(s): R62.7 - Adult failure to thrive Status: Acute Assessment and Plan: As above. (6) Malnutrition: Code(s): E46 - Unspecified protein-calorie malnutrition Status: Acute Assessment and Plan: NG tube out now. Resume Multivitamins when able. (7) Colostomy in place: Code(s): Z93.3 - Colostomy status Status: Acute Assessment and Plan: Stool moving through his system. Recent KUB shows contrast in the colon and no evidence of obstruction or severe constipation. (8) Rheumatoid arthritis: Code(s): M06.9 - Rheumatoid arthritis, unspecified Status: Acute Assessment and Plan: Patient on chronic steroids. He is on oral steroids per NGT but on hold now since NGT removed. Continue stress dose steroids. (9) Ankylosing spondylitis: Code(s): M45.9 - Ankylosing spondylitis of unspecified sites in spine Status: Acute Assessment and Plan: As above Subjective Date/time seen: 06/27/22 13:07 Interval history: 57yo male with schizoaffective disorder, severe flexion contractions and failure to thrive here for abdominal pain. Spoke with brother yesterday. He did not want hospice. Patient this morning refused the G-tube. He wanted to eat and was agreeable for hospice care. However after speaking with the brother the plan was changed back to G-tube placement which will be performed later today. Patient feels well today. He is still complaining of pain around the ostomy. Exam Narrative: AF 98.3 117/58 86 20 100% RA Gen - thin, cachectic-appearing male NARD Chest - lungs clear anteriorly CV - RRR S1/S2 Abd - soft, scaphoid. colostomy noted left of midline with light brown stool in bag Ext - No pedal edema Neuro - Alert and appropriate. He does fully comprehend options. Flexion contractions noted Skin - Warm and dry Objective Data Vital Signs Vital Signs: Vital Signs - 24 hr 06/26/22 14:00 06/26/22 21:39 06/26/22 20:30 Temperature 98.0 F 99.1 F Pulse Rate 70 64 Respiratory Rate 18 18 Blood Pressure 110/70 108/61 Pulse Oximetry 9
--- NOTE | 2022-06-27 14:36 | WPDHPUPDATE1 ---
History and Physical Update Update Date/Time: 06/27/22 14:36 History and Physical has been reviewed, including an updated exam of the patient. There are NO changes in the patient's condition. Risks, benefits, and alternatives have been discussed and questions answered. Patient agrees to proceed with procedure.
[2022-06-27] MEDS: CLINDAMYCIN 900 MG/D5W 50 ML 900 MG/50 ML PIGGYBACK 50 MG IVPB (14:42)
--- NOTE | 2022-06-27 15:10 | WPDANESEPPF ---
Anes - Initial Pre Proc Eval Procedure: Operation Date: 06/27/22 14:30 Proposed Procedures p Open G-Tube Insertion - Carlos Rene DO Date/Time: 06/27/22 15:10 Surgeon: Eliazar Landeros MD Pre Op Diagnosis: Failure to Thrive Patient Data Age: 57 Gender: M Height: 1.83 m Weight: 46.8 kg Last Vital Signs Temp 97.2 F L 06/27/22 13:31 Pulse 63 06/27/22 13:31 Resp 16 06/27/22 13:31 BP 109/64 06/27/22 13:31 Pulse Ox 100 06/27/22 13:31 O2 Del Method Room Air 06/27/22 13:31 Allergies Allergy/AdvReac Type Severity Reaction Status Date / Time cephalexin [From Keflex] Allergy Swelling Verified 06/12/22 06:20 of Lip/Tongue/Throat Cephalosporins Allergy Unknown Verified 06/19/22 05:20 diazepam [From Valium] Allergy Depression Verified 06/12/22 06:20 peanut Allergy Other Verified 06/12/22 06:20 Sulfa (Sulfonamide Allergy Swelling Verified 06/12/22 06:20 Antibiotics) of Lip/Tongue/Throat Home Medications Medication Instructions Recorded Confirmed Type hydrocodone 10 mg-acetaminophen 1 tablet PO Q6H PRN pain #1 tablet 03/07/21 06/19/22 Rx 325 mg tablet Vitamin D2 50,000 units PO WEEKLY 06/12/22 06/19/22 History baclofen 5 mg tablet 5 mg PO TID 06/12/22 06/19/22 History budesonide-formoterol HFA 160 2 puff inhalation BID 06/12/22 06/19/22 History mcg-4.5 mcg/actuation aerosol inhaler (Symbicort) celecoxib 200 mg capsule 200 mg PO BID 06/12/22 06/19/22 History folic acid 1 mg tablet 2 mg PO DAILY 06/12/22 06/19/22 History food supplemt, lactose-reduced 1 ea PO TID 06/12/22 06/19/22 History (Ensure oral liquid) furosemide 20 mg tablet (Lasix) 20 mg PO DAILY 06/12/22 06/19/22 History magnesium 200 mg tablet 600 mg PO DAILY 06/12/22 06/19/22 History omeprazole 20 mg capsule,delayed 20 mg PO DAILY 06/12/22 06/19/22 History release prednisone 5 mg tablet 7.5 mg PO DAILY 06/12/22 06/19/22 History acetaminophen 650 mg tablet 650 mg PO BID PRN Fever Or Pain 06/19/22 06/19/22 History albuterol 90 mcg/actuation aerosol 90 mcg inhalation Q4-5H PRN 06/19/22 06/19/22 History inhaler Shortness Of Breath hydroxyzine HCl 25 mg tablet 25 mg PO TID PRN Itching 06/19/22 06/19/22 History meclizine 12.5 mg tablet 25 mg PO TID PRN dizziness 06/19/22 06/19/22 History polyethylene glycol 3350 17 17 g PO TID PRN Constipation 06/19/22 06/19/22 History gram/dose oral powder (Miralax) Laboratory Tests 06/27/22 06/27/22 06/27/22 06:31 06:31 06:31 WBC 7.0 K/mm3 K/mm3 (4.5-10.0) RBC 4.21 M/mm3 L M/mm3 (4.6-6.20) Hgb 11.2 g/dL L g/dL (14.0-18.0) Hct 37.0 % L % (42.0-52.0) MCV 87.9 fl fl (80-100) MCH 26.6 pg pg (26-34) MCHC 30.3 g/dl L g/dl (32-36) RDW 16.1 % H % (11.5-14.5) Plt Count 330 k/mm3 k/mm3 (150-375) MPV 10.4 fl fl (7.4-10.4) Immature Gran % (Auto) 0.3 % % (0-0.5) Neut % (Auto) 68.9 % % (45.5-73.1) Lymph % (Auto) 26.6 % % (18.3-44.2) Vermilion % (Auto) 2.9 % % (2.6-8.5) Eos % (Auto) 0.7 % % (0-4.4) Baso % (Auto) 0.6 % % (0.2-1.2) Lymph # (Auto) 1.86 K/mm3 K/mm3 (0.9-3.2) Vermilion # (Auto) 0.2 K/mm3 K/mm3 (0.1-0.6) Eos # (Auto) 0.1 K/mm3 K/mm3 (0-0.3) Baso # (Auto) 0.0 K/mm3 K/mm3 (0.0-0.1) Abs Immat Gran (auto) 0.02 K/mm3 K/mm3 (0.00-0.031) Absolute Neuts (auto) 4.8 K/mm3 K/mm3 (1.3-6.7) Absolute Nucleated RBC 0.0 K/mm3 K/mm3 (0.0-0.012) Nucleated RBC % 0.0 % % (0.0-0.2) PT 13.9 Seconds Seconds (11.1-14.7) INR 1.1 APTT 35.5 SECONDS SECONDS (22.3-36.8) Sodium 143 mmol/L mmol/L (137-145) Potassium 3.7 mmol/L mmol/L (3.4-5.0) Chloride 105 mmol/L mmol/L (98-107) Carbon Dioxide 24 mmol/L mmol/L (22-30) A
--- NOTE | 2022-06-27 16:30 | W.PM.PROC2 ---
Procedure Note - Detailed Date of Procedure 06/27/22 Pre-op Diagnosis Failure to Thrive, malnutrition, dysphagia Post-op Diagnosis Same Procedure Performed Open gastrostomy tube placement Surgeon Carlos Rene, DO Anesthesia General Indications This is a 57-year-old man with multiple medical problems who presented from the intermediate with failure to thrive and malnutrition. He has a history of schizoaffective disorder, rheumatoid arthritis, and ankylosing spondylitis. He has multiple upper and lower extremity contractures making it difficult for him to feed himself. He has been losing weight and becoming more malnourished over the past several months. A recent swallow eval showed evidence of aspiration. Discussions were made about further treatment options with nasogastric tube and tube feedings verses proceeding with open gastrostomy tube placement. Gastroenterology had been consulted for possible PEG tube placement but they felt this was too high risk due to his prior open abdominal surgery and colostomy. Ultimately decision was made to proceed with open gastrostomy tube placement. Findings Open gastrostomy tube placement was performed. Patient did have some significant adhesions from his prior open abdominal surgery. His left lobe of the liver was identified and I was able to dissect the scar tissue around this area and just below the inferior edge of the liver. I identified the body of the stomach and was able to identify a location that was suitable for gastrostomy tube placement. A 16 Kinyarwanda G-tube was placed and this was secured with 2 pursestring sutures with 2-0 silk. I confirmed placement of the G-tube with insufflation of air into the body of the stomach. Description of Procedure Procedure as well as risks, benefits, and alternatives were discussed with the patient and family. Written consent was obtained and placed in chart prior to procedure. Patient was brought back to surgical suite. He was placed supine on operating table. Time-out was done to confirm patient and procedure. He was then intubated by the anesthesia department. His abdomen was prepped and draped in sterile fashion using chlorhexidine prep. A 6 cm vertical upper abdominal midline incision was made using a 10 blade scalpel. Electrocautery was used for hemostasis and for dissection through the subcutaneous tissue. The linea alba was identified and incised with electrocautery. Some peritoneal adhesions were identified and these were carefully taken down using electrocautery. I then identified the left lobe of the liver and carefully dissected just inferior to the inferior edge of the liver. I was able to identify the body of the stomach and the abdominal adhesions around this area were freed up using electrocautery. A Caryn was then placed on the body of the stomach and a clear space on the anterior surface of the stomach was identified for G-tube placement. This appeared to come up to the abdominal wall without any tension. A 2 0 silk pursestring suture was placed. Another 2-0 silk pursestring suture was placed just slightly wider to this. A gastrotomy was then made using electrocautery directly through the midportion of the pursestring sutures. Cautery was then used to advance through the layers of the stomach into the lumen of the stomach. I confirmed that I was within the lumen of the stomach both visually and by passing a curved hemostat without any resistance further into the body of the stomach. I then made an incision in the left upper quadrant just inferior to the costal margin using a 15 blade scalpel. A curved clamp was then used to advance through the abdominal layers into the abdominal cavity and then the G-tube was advanced through this tract into the abdominal cavity. The G-tube was then advanced into the gastrotomy and then the balloon was insufflated with 20 cc of saline. The pursestring sutures were then tied secure around the G-tube. The G-
[2022-06-27] MEDS: LACTATED RINGERS 1,000 ML 30 ML IV CONT (16:32)
[2022-06-27] MEDS: fentaNYL CITRATE INJ (*CRX) 100 MCG/2 ML VIAL 25 MCG IV PUSH ×5 (16:38→17:03)
[2022-06-27] MEDS: ONDANSETRON INJ 4 MG/2 ML VIAL IV PUSH (17:30)
[2022-06-27] MEDS: MORPHINE SULFATE (*CRX) 4 MG/ML INJ IV PUSH ×2 (17:48→20:09)
--- NOTE | 2022-06-27 18:59 | PC.NURSE ---
Pt arrived to floor. Pt unwilling to allow light on in room to assess. He states it makes him more nauseated. Left to pull zofran. IVP zofran given and flushed. Pt states this RN is trying to kill him. Reassured pt. This RN and PCT tried to pull pt up in bed to prevent aspiration. Pt screaming, yelling obscenties and calling this RN a variety of curse words. Again tried to reassure pt. Left to retrieve IVP morphine. As I was drawing up pain med, pt screaming this RN taking too long. Pt again cussing at this RN. Gave pt pain medication. Pt screaming to let his bed down, reminded pt that we need to elevate his head as he is a major risk for aspiration. Pt continually stating we are trying to kill him, said that this RN was the one who made him not walk, he will cipriano this RN. Pt unable to be calmed. This RN left the room. PCT stated pt threw wash basin and pillow at this RN. account retention representative made aware and she checked on pt. She attempted to apply the abdominal binder, but pt refused. Positioned pt with pillows. Pt stated he was comfortable but wanted more pain medications, because he doesn't think this RN gave it to him. Pt told rn discharge that he thinks this RN and PCT are trying to kill him. Pt called out multiple times requesting fentanyl and other pain medications. Report given to oncoming RN.
[2022-06-27] MEDS: HYDROcodone/acetaminophen (*CRX) 10-325 MG TABLET 1 TAB FEED TUBE (20:09)
--- NOTE | 2022-06-27 22:29 | PCRCNOTE ---
Window of time for administration has passed. See next scheduled administration.
[2022-06-27] MEDS: QUEtiapine FUMARATE 12.5 MG TABLET FEED TUBE (22:39)
[2022-06-28] MEDS: MORPHINE SULFATE (*CRX) 4 MG/ML INJ IV PUSH ×4 (02:27→23:43)
[2022-06-28 03:04] VITALS: BP 111/68; PULSE 60; RESP 20; TEMP 37.2; O2SAT 99
[2022-06-28] MEDS: KCL 20 MEQ/D5/0.9% SOD CHL 1,000 ML 60 ML IV CONT (03:37)
[2022-06-28 06:37] LABS: Hematocrit 35.7 % (42.0-52.0); Hemoglobin 10.7 g/dL (14.0-18.0); Mean Corpuscular Hemoglobin 26.7 pg (26-34); Platelet Count Result 338 k/mm3 (150-375); Red Blood Count 4.01 M/mm3 (4.6-6.20); Red Cell Distribution Width 16.4 % (11.5-14.5); White Blood Count 13.3 K/mm3 (4.5-10.0)
[2022-06-28] MEDS: HYDROCORTISONE SODIUM SUCCINATE 100 MG/2 ML VIAL 25 MG IV PUSH ×3 (06:40→21:49)
[2022-06-28 06:44] LABS: Albumin Level 3.7 g/dL (3.5-5.1); Anion Gap 11 mmol/L (8-16); Blood Urea Nitrogen 10 mg/dL (9-20); Calcium 8.9 mg/dL (8.4-10.2); Carbon Dioxide 25 mmol/L (22-30); Chloride 108 mmol/L (98-107); Estimated CRCL calculation 109 ml/min; Estimated Glomerular Filt Rate > 60; Glucose 93 mg/dL (65-110); Phosphorus 3.1 mg/dL (2.5-4.5); Potassium 3.7 mmol/L (3.4-5.0); Sodium 144 mmol/L (137-145)
[2022-06-28 08:00] VITALS: PULSE 59; RESP 20; O2SAT 98
[2022-06-28] MEDS: FLUTICASONE/SALMETEROL 115-21 MCG INHALER 1 PUFF 2 PUFF INHALATION ×2 (08:38→21:09)
[2022-06-28] MEDS: HYDROcodone/acetaminophen (*CRX) 10-325 MG TABLET 1 TAB FEED TUBE (09:03)
[2022-06-28] MEDS: ONDANSETRON INJ 4 MG/2 ML VIAL IV PUSH (09:03)
[2022-06-28] MEDS: ENOXAPARIN 40 MG/0.4 ML SYRINGE SUB-Q (09:06)
[2022-06-28] MEDS: FOLIC ACID 1 MG TABLET 2 MG FEED TUBE (09:06)
[2022-06-28] MEDS: CELECOXIB 200 MG CAPSULE FEED TUBE ×2 (09:06→17:40)
[2022-06-28] MEDS: MAGNESIUM OXIDE 200 MG TABLET 600 MG FEED TUBE (09:06)
[2022-06-28] MEDS: MEGESTROL ACETATE (*CHEMO) 20 MG TABLET FEED TUBE (09:06)
[2022-06-28] MEDS: VITAMIN B COMPLEX CAPSULE 1 CAP FEED TUBE ×3 (09:07→17:41)
[2022-06-28] MEDS: BACLOFEN 5 MG TABLET FEED TUBE ×3 (09:08→17:40)
[2022-06-28] MEDS: THIAMINE HCL 100 MG TABLET FEED TUBE ×2 (09:08→17:41)
[2022-06-28] MEDS: THERAPEUTIC MULTIVITAMINS/MINERALS TAB (*BKC) 1 TABLET FEED TUBE (09:08)
[2022-06-28] MEDS: PANTOPRAZOLE SODIUM IV 40 MG VIAL IV PUSH (09:09)
[2022-06-28 11:04] VITALS: BP 98/57; PULSE 59; RESP 20; TEMP 36.1; O2SAT 98
--- NOTE | 2022-06-28 11:33 | PCNFU ---
Nutrition Follow-Up Complete: Severe malnutrition related to environmental factors of self-feeding difficulty, not getting assistance with meals and long-term; and swallowing issues as evidenced by social circumstances and swallow report, Weight loss -19%/1 year, severe muscle wasting and fat loss. Goal: meet estimated needs. Pt current nutrition is NPO, PEG placed for nutrition support. Nutrition recommendation: Jevity 1.5 @ goal rate 45 ml/hr with 100ml flush q 4 hrs, to provide 1485 kcals, 63 g protein, 1360 ml free water / day. Last recorded weight is 46.7 kg. Bowel Motility: No BM recorded at this time. Labs Reviewed: hgb:10.7, HCT:35.7, Cr:0.4 Meds Noted: lovenox, zofran, prednisone Skin: no skin issues noted Additional Notes: PEG now placed. Recommendation is for Jevity 1.5 @ goal rate 45 ml/hr with 100ml flush q 4 hrs, to provide 1485 kcals, 63 g protein, 1360 ml free water / day. Monitor tube feeds, weights, plan of care. Follow up every /Fridays
--- NOTE | 2022-06-28 11:35 | PCDIET ---
Recommendation to start tube feeding: Jevity 1.5 @ goal rate 45 ml/hr with 100ml flush q 4 hrs, to provide 1485 kcals, 63 g protein, 1360 ml free water / day. Start at 20ml/hr and advance by 10ml/hr q 4 hrs until goal rate is reached.
--- NOTE | 2022-06-28 14:11 | PM.PNGS ---
Progress Note: A&P Assessment and Plan (1) Dysphagia: Code(s): R13.10 - Dysphagia, unspecified Status: Acute Assessment and Plan: Doing well on postop day 1. Okay to begin using G-tube for feedings. Continue to monitor for signs of repeating syndrome. Surgically stable. (2) Rheumatoid arthritis: Code(s): M06.9 - Rheumatoid arthritis, unspecified Status: Acute (3) Ankylosing spondylitis: Code(s): M45.9 - Ankylosing spondylitis of unspecified sites in spine Status: Acute (4) Flexion contractures: Code(s): M24.50 - Contracture, unspecified joint Status: Acute (5) Malnutrition: Code(s): E46 - Unspecified protein-calorie malnutrition Status: Acute Subjective Subjective Date/Time Seen: 06/28/22 14:11 Interval history: Pain controlled. G-tube has been used for meds and flushes. No tube related complications. Exam GI: Other: G-tube in position, no surrounding erythema or bleeding. Incision intact with glue. Objective Data Vital Signs Vital Signs: Vital Signs - 24 hr 06/27/22 16:32 06/27/22 16:45 06/27/22 16:55 Temperature 36.2 C L Pulse Rate 79 72 Respiratory Rate 12 16 Blood Pressure 122/95 H 128/87 Pulse Oximetry 100 100 Oxygen Delivery Simple Face Mask Simple Face Mask Room Air Oxygen Flow Rate 6 6 06/27/22 17:00 06/27/22 17:15 06/27/22 19:04 Temperature 36.6 C Pulse Rate 76 61 71 Respiratory Rate 16 16 18 Blood Pressure 126/86 131/79 117/69 Pulse Oximetry 100 98 100 Oxygen Delivery Room Air Room Air Oxygen Flow Rate 06/27/22 20:00 06/28/22 03:04 06/28/22 11:04 Temperature 37.2 C 36.1 C L Pulse Rate 60 59 L Respiratory Rate 20 20 Blood Pressure 111/68 98/57 L Pulse Oximetry 99 98 Oxygen Delivery Room Air Oxygen Flow Rate 06/28/22 08:00 Temperature Pulse Rate 59 L Respiratory Rate 20 Blood Pressure Pulse Oximetry 98 Oxygen Delivery Room Air Oxygen Flow Rate Intake/Output Intake/Output: Intake & Output 06/25/22 06/26/22 06/27/22 06/28/22 23:59 23:59 23:59 23:59 Intake Total 1000 65 2050 0 Output Total 100 1330 976 Balance 900 -9753 1074 0 Meds/Results Medications: Active Medications Generic Name Dose Route Start Last Admin Trade Name Freq PRN Reason Stop Dose Admin Acetaminophen 650 mg 06/25/22 12:37 06/25/22 13:33 Acetaminophen Elixir 325 Mg/10.15 Ml Udc FEED TUBE 650 mg Q6H PRN Administration Mild Pain (1-3) or Fever Hydrocodone Bitart/Acetaminophen 1 tab 06/21/22 14:43 06/28/22 09:03 Hydrocodone/Acetaminophen (*Crx) 10-325 Mg Tablet FEED TUBE 1 tab Q6H PRN Administration Pain Rated 7-10 Albuterol 1 puff 06/19/22 12:35 06/20/22 10:09 Albuterol Sulfate (*Sp) Aerosol 1 Puff INHALATION 1 puff Q4H PRN Administration Shortness Of Breath Baclofen 5 mg 06/21/22 17:00 06/28/22 09:08 Baclofen 5 Mg Tablet FEED TUBE 5 mg TID CELIA Administration Celecoxib 200 mg 06/21/22 17:00 06/28/22 09:06 Celecoxib 200 Mg Capsule FEED TUBE 200 mg BIDWM CELIA Administration Enoxaparin Sodium 40 mg 06/23/22 09:00 06/28/22 09:06 Enoxaparin 40 Mg/0.4 Ml Syringe SUB-Q 40 mg DAILY CELIA Administration Folic Acid 2 mg 06/22/22 09:00 06/28/22 09:06 Folic Acid 1 Mg Tablet FEED TUBE 2 mg DAILY CELIA Administration Hydrocortisone Sodium Succinate 25 mg 06/26/22 14:00 06/28/22 06:40 Hydrocortisone Sodium Succinate 100 Mg/2 Ml Vial IV PUSH 25 mg Q8HR CELIA Administration Potassium Chloride/Dextrose/Sod Cl 1,000 mls @ 60 mls/hr 06/25/22 18:20 06/28/22 06:59 Kcl 20 Meq/D5/0.9% Sod Chl IV CONT 0 mls/hr .[id number] CELIA Infusion Magnesium Oxide 600 mg 06/22/22 09:00 06/28/22 09:06 Magnesium Oxide 200 Mg Tablet FEED TUBE 600 mg DAILY CELIA Administration Megestrol Acetate 20 mg 06/21/22 17:00 11/15/22 09:06 Megestrol Acetate (*Chemo) 20 Mg Tablet FEED TUBE 20 mg BID [facility] Ad
--- NOTE | 2022-06-28 14:26 | WPDANESPN ---
Anes - Prog Note Post-Op Date/Time: 06/28/22 14:26 Vital Signs: Last Vital Signs Temp 36.1 C L 06/28/22 11:04 Pulse 59 L 06/28/22 11:04 Resp 20 06/28/22 11:04 BP 98/57 L 06/28/22 11:04 Pulse Ox 98 06/28/22 11:04 O2 Del Method Room Air 06/28/22 08:00 O2 Flow Rate 6 06/27/22 16:45 Pain Score (VAS): 0 I/O: Intake & Output 06/27/22 06/28/22 06/28/22 23:59 07:59 15:59 Intake Total 1050 0 Output Total 425 Balance 625 0 Laboratory Tests 06/28/22 06:01 06/28/22 06:01 06/28/22 06/28/22 06:01 06:01 WBC 13.3 H RBC 4.01 L Hgb 10.7 L Hct 35.7 L MCV 89.0 MCH 26.7 MCHC 30.0 L RDW 16.4 H Plt Count 338 MPV 10.0 Sodium 144 Potassium 3.7 Chloride 108 H Carbon Dioxide 25 Anion Gap 11 BUN 10 Creatinine 0.40 L Estim Creat Clear Calc 109 Estimated GFR > 60 Glucose 93 Calcium 8.9 Phosphorus 3.1 Magnesium 2.0 Albumin 3.7 Patient Feedback: Patient satisfied with anesthetic care.
--- NOTE | 2022-06-28 14:53 | PM.IMPN ---
Progress Note: A&P Assessment and Plan (1) Dysphagia: Code(s): R13.10 - Dysphagia, unspecified Status: Acute Assessment and Plan: Patient with dysphagia. Chest x-ray on admission showed left upper lobe infiltrate which has been present for over a month. He also had a right lower lobe infiltrate. Abdominal x-ray does show the lung bases are clear now so probably right lower lobe infiltrate was atelectasis. No fevers, cough or elevated white count to suggest pneumonia. Patient was agreeable for PEG tube and this was placed 06/27/22 and he has tolerated the procedure well. Start TF today. Appreciate GenSur input (2) Flexion contractures: Code(s): M24.50 - Contracture, unspecified joint Status: Acute Assessment and Plan: Flexion contractures related to ankylosing spondylitis and rheumatoid arthritis. Despite his debility, he is able to the feed himself. (3) Schizoaffective disorder: Code(s): F25.9 - Schizoaffective disorder, unspecified Status: Acute Assessment and Plan: Mood stable. Patient was not on medications for his schizoaffective disorder on admission. Low dose Seroquel started and he is tolerating this. Will follow (4) Weight loss: Code(s): R63.4 - Abnormal weight loss Status: Acute Assessment and Plan: Patient with weight loss and failure to thrive. He has demonstrated that he can feed himself. Weight loss may be related to his multiple abdominal surgeries. No evidence of suspicious findings concern for cancer. He has had a Chest CT 1 month ago as well as a CT of his abdomen pelvis earlier this admission. Treatment as above. (5) Adult failure to thrive: Code(s): R62.7 - Adult failure to thrive Status: Acute Assessment and Plan: As above. Stop megace since he is unable to eat orally. (6) Malnutrition: Code(s): E46 - Unspecified protein-calorie malnutrition Status: Acute Assessment and Plan: PEG placed. TF started. Refeeding syndrome is of concern. Discussed with dietary who recommended vitamins. Continue Multivitamin, Thaimine and B complex. (7) Colostomy in place: Code(s): Z93.3 - Colostomy status Status: Acute Assessment and Plan: Stool moving through his system. Recent KUB shows contrast in the colon and no evidence of obstruction or severe constipation. Monitor (8) Rheumatoid arthritis: Code(s): M06.9 - Rheumatoid arthritis, unspecified Status: Acute Assessment and Plan: Patient on chronic steroids. He was on oral steroids per NGT but put on hold since NGT removed so changed to stress dose steroids. Wean steroids. (9) Ankylosing spondylitis: Code(s): M45.9 - Ankylosing spondylitis of unspecified sites in spine Status: Acute Assessment and Plan: As above Subjective Date/time seen: 06/28/22 14:53 Interval history: 57yo male with schizoaffective disorder, severe flexion contractions and failure to thrive here for abdominal pain. After much discussion, patient and fmaily decided to move forward with GTube which was placed yesterday. Minimal pain today. No CP or SOB. Still with pain around the colostomy. He is agreeeable with the Seroquel and denies hearing voices or having episodes of delusions. He admits to feeling paranoid in the evening. Exam Narrative: AF 97.1 101/53 56 20 96% RA Gen - thin, cachectic-appearing male NARD Chest - lungs clear anteriorly CV - RRR S1/S2 Abd - soft, scaphoid. colostomy noted left of midline with no stool in bag. GTube left of midline in the epigastric region with dressing clean and dry Ext - No pedal edema Psych - pleasant and cooperative. Skin - Warm and dry Objective Data Vital Signs Vital Signs: Vital Signs - 24 hr 06/27/22 16:32 06/27/22 16:45 06/27/22 16:55 Temperature 97.1 F L Pulse Rate 79 72 Respiratory Rate 12 16 Blood Pressure
[2022-06-28 15:04] VITALS: BP 101/53; PULSE 56; RESP 20; TEMP 36.2; O2SAT 96
[2022-06-28] MEDS: polyethylene glycoL 3350 17 GM POWD.PACK FEED TUBE (15:15)
[2022-06-28 19:04] VITALS: BP 119/65; PULSE 66; RESP 17; TEMP 36.4; O2SAT 98
[2022-06-28] MEDS: MORPHINE SULFATE (*CRX) 2 MG/ML INJ IV PUSH (20:53)
[2022-06-28] MEDS: QUEtiapine FUMARATE 12.5 MG TABLET FEED TUBE (21:49)
[2022-06-29] MEDS: MORPHINE SULFATE (*CRX) 2 MG/ML INJ IV PUSH (04:58)
--- NOTE | 2022-06-29 05:01 | PC.NURSE ---
Patient vomited in urinal, so temporarily pausing feeding through feeding tube at this time.
[2022-06-29 06:35] LABS: Hematocrit 34.3 % (42.0-52.0); Hemoglobin 10.2 g/dL (14.0-18.0); Mean Corpuscular HGB Conc 29.7 g/dl (32-36); Mean Corpuscular Hemoglobin 26.8 pg (26-34); Mean Corpuscular Volume 90.3 fl (80-100); Mean Platelet Volume 10.4 fl (7.4-10.4); Platelet Count Result 332 k/mm3 (150-375); Red Cell Distribution Width 16.2 % (11.5-14.5); White Blood Count 9.6 K/mm3 (4.5-10.0)
[2022-06-29 06:50] LABS: Albumin Level 3.5 g/dL (3.5-5.1); Anion Gap 9 mmol/L (8-16); Blood Urea Nitrogen 8 mg/dL (9-20); Calcium 8.5 mg/dL (8.4-10.2); Carbon Dioxide 26 mmol/L (22-30); Chloride 104 mmol/L (98-107); Estimated CRCL calculation 109 ml/min; Estimated Glomerular Filt Rate > 60; Glucose 119 mg/dL (65-110); Magnesium 1.8 mg/dL (1.6-2.3); Phosphorus 2.2 mg/dL (2.5-4.5); Potassium 3.3 mmol/L (3.4-5.0); Sodium 139 mmol/L (137-145)
[2022-06-29 08:00] VITALS: PULSE 66; RESP 17; O2SAT 98
--- NOTE | 2022-06-29 08:46 | PC.NURSE ---
Pt C/O nausea this AM. Empty milk container found under the bed covers. Brother had brought milk to hospital yesterday evening. At that time, this nurse reminded pt and bother that pt is NPO. Brother verbalized understanding stating he would take the milk back home. Tube feeding still at 20ml per hour. Night nurse unable to advance rate D/T pt nausea. Residual checked at 0 mls returned. No BM noted per colostomy. Unsure of last stool. Provider notified and to see pt. Will monitor.
[2022-06-29] MEDS: FOLIC ACID 1 MG TABLET 2 MG FEED TUBE (10:00)
[2022-06-29] MEDS: MAGNESIUM OXIDE 200 MG TABLET 600 MG FEED TUBE (10:00)
[2022-06-29] MEDS: CELECOXIB 200 MG CAPSULE FEED TUBE ×2 (10:01→17:37)
[2022-06-29] MEDS: BACLOFEN 5 MG TABLET FEED TUBE ×3 (10:01→17:37)
[2022-06-29] MEDS: THIAMINE HCL 100 MG TABLET FEED TUBE ×2 (10:01→17:37)
[2022-06-29] MEDS: VITAMIN B COMPLEX CAPSULE 1 CAP FEED TUBE ×3 (10:01→17:37)
[2022-06-29] MEDS: PANTOPRAZOLE SODIUM IV 40 MG VIAL IV PUSH (10:01)
[2022-06-29] MEDS: HYDROCORTISONE SODIUM SUCCINATE 100 MG/2 ML VIAL 25 MG IV PUSH ×2 (10:02→20:46)
[2022-06-29] MEDS: THERAPEUTIC MULTIVITAMINS/MINERALS TAB (*BKC) 1 TABLET FEED TUBE (10:02)
--- NOTE | 2022-06-29 13:05 | PCSTNOTE ---
Patient refused today stating he is still uncomfortable from his stomach surgery, requested attempt tomorrow.
--- NOTE | 2022-06-29 14:21 | PM.IMPN ---
Progress Note: A&P Assessment and Plan (1) Dysphagia: Code(s): R13.10 - Dysphagia, unspecified Status: Acute Assessment and Plan: Patient with dysphagia. Chest x-ray on admission showed left upper lobe infiltrate which has been present for over a month. He also had a right lower lobe infiltrate. Abdominal x-ray does show the lung bases are clear now so probably right lower lobe infiltrate . Patient was agreeable for PEG tube and this was placed 06/27/22 and he has tolerated the procedure well. Start TF today. but nothing from colostomy tube (2) Flexion contractures: Code(s): M24.50 - Contracture, unspecified joint Status: Acute Assessment and Plan: Flexion contractures related to ankylosing spondylitis and rheumatoid arthritis. Despite his debility, he is able to the feed himself. (3) Schizoaffective disorder: Code(s): F25.9 - Schizoaffective disorder, unspecified Status: Acute Assessment and Plan: Mood stable. Patient was not on medications for his schizoaffective disorder on admission. Low dose Seroquel started and he is tolerating this. Will follow (4) Weight loss: Code(s): R63.4 - Abnormal weight loss Status: Acute Assessment and Plan: Patient with weight loss and failure to thrive. He has demonstrated that he can feed himself. Weight loss may be related to his multiple abdominal surgeries. No evidence of suspicious findings concern for cancer. (5) Adult failure to thrive: Code(s): R62.7 - Adult failure to thrive Status: Acute Assessment and Plan: (6) Malnutrition: Code(s): E46 - Unspecified protein-calorie malnutrition Status: Acute Assessment and Plan: Discussed with dietary who recommended vitamins. Continue Multivitamin, Thiamine and B complex. (7) Colostomy in place: Code(s): Z93.3 - Colostomy status Status: Acute Assessment and Plan: Stool moving through his system. KUB ordered The the (8) Rheumatoid arthritis: Code(s): M06.9 - Rheumatoid arthritis, unspecified Status: Acute Assessment and Plan: steroids. (9) Ankylosing spondylitis: Code(s): M45.9 - Ankylosing spondylitis of unspecified sites in spine Status: Acute Assessment and Plan: As above Plan DVT prophylaxis. GI prophylaxis. All records reviewed Discussed plan of care with the nursing staff and with the patient in detail. Answered all questions and concerns from the patient. All labs have been reviewed. Code status updated dictation may have been done utilizing a voice recognition system. Attempts have been made to correct errors. However, there may be uncorrected grammatical, spelling, and recognition errors present. Subjective Date/time seen: 06/29/22 14:21 thin cachectic with contracture Review of Systems Review of Systems: All systems reviewed & are unremarkable except as noted in HPI and below Exam Narrative: Gen - thin, cachectic-appearing male NARD Chest - lungs clear anteriorly CV - RRR S1/S2 Abd - soft, scaphoid. colostomy noted left of midline with no stool in bag. GTube left of midline in the epigastric region with dressing clean and dry Ext - No pedal edema Psych - pleasant and cooperative. Skin - Warm and dry Const: General: comfortable and no acute distress HENMT: Face/Nose/Sinus: no epistaxis Mouth: Yes moist mucous membranes Other: poor dentition Eyes: General: appearance normal, both eyes and all related structures Neck: Neck: supple and no JVD Carotids: no bruits Chest: Other: symmetric chest rise, no use of accessory muscles Resp: Effort & Inspection: normal respiratory effort Auscultation: clear to auscultation bilaterally Cardio: Rate: regular rate Rhythm: regular rhythm GI: Inspection: non-distended Other: colostomy present and functioning Skin: Ge
[2022-06-29] MEDS: MORPHINE SULFATE (*CRX) 4 MG/ML INJ IV PUSH ×3 (14:22→20:45)
--- NOTE | 2022-06-29 17:00 | PC.NURSE ---
Tube feed residual checked with 10 ml results. Rate increased by 10ml per orders to 40ml/hr. Pt tolerating well.
[2022-06-29 20:00] VITALS: PULSE 60; RESP 18; O2SAT 100
[2022-06-29] MEDS: QUEtiapine FUMARATE 12.5 MG TABLET FEED TUBE (20:46)
[2022-06-29 22:13] VITALS: BP 115/67; PULSE 60; RESP 18; TEMP 37.3; O2SAT 100
[2022-06-30] MEDS: MORPHINE SULFATE (*CRX) 4 MG/ML INJ IV PUSH (05:24)
[2022-06-30 06:19] VITALS: BP 125/68; PULSE 75; RESP 18; TEMP 36.9; O2SAT 99
[2022-06-30] MEDS: HYDROcodone/acetaminophen (*CRX) 10-325 MG TABLET 1 TAB FEED TUBE ×3 (08:49→21:07)
[2022-06-30] MEDS: VITAMIN B COMPLEX CAPSULE 1 CAP FEED TUBE ×3 (08:50→17:47)
[2022-06-30] MEDS: FOLIC ACID 1 MG TABLET 2 MG FEED TUBE (08:50)
[2022-06-30] MEDS: BACLOFEN 5 MG TABLET FEED TUBE ×3 (08:51→18:46)
[2022-06-30] MEDS: MAGNESIUM OXIDE 200 MG TABLET 600 MG FEED TUBE (08:51)
[2022-06-30] MEDS: ENOXAPARIN 40 MG/0.4 ML SYRINGE SUB-Q (08:51)
[2022-06-30] MEDS: THERAPEUTIC MULTIVITAMINS/MINERALS TAB (*BKC) 1 TABLET FEED TUBE (08:51)
[2022-06-30] MEDS: THIAMINE HCL 100 MG TABLET FEED TUBE ×2 (08:51→17:47)
[2022-06-30] MEDS: PANTOPRAZOLE SODIUM IV 40 MG VIAL IV PUSH (08:51)
[2022-06-30] MEDS: HYDROCORTISONE SODIUM SUCCINATE 100 MG/2 ML VIAL 25 MG IV PUSH ×2 (08:52→21:03)
[2022-06-30] MEDS: CELECOXIB 200 MG CAPSULE FEED TUBE ×2 (08:52→17:46)
[2022-06-30] MEDS: FLUTICASONE/SALMETEROL 115-21 MCG INHALER 1 PUFF 2 PUFF INHALATION ×2 (09:58→20:42)
--- NOTE | 2022-06-30 12:33 | PM.IMPN ---
Progress Note: A&P Assessment and Plan (1) Dysphagia: Code(s): R13.10 - Dysphagia, unspecified Status: Acute Assessment and Plan: patient had a PEG tube in place. No bowel movement yet. KUB shows gas pattern no obstruction. (2) Flexion contractures: Code(s): M24.50 - Contracture, unspecified joint Status: Acute Assessment and Plan: Flexion contractures related to ankylosing spondylitis and rheumatoid arthritis. Despite his debility, he is able to the feed himself. (3) Schizoaffective disorder: Code(s): F25.9 - Schizoaffective disorder, unspecified Status: Acute Assessment and Plan: Mood stable. Patient was not on medications for his schizoaffective disorder on admission. Low dose Seroquel started and he is tolerating this. Will follow (4) Weight loss: Code(s): R63.4 - Abnormal weight loss Status: Acute Assessment and Plan: Patient with weight loss and failure to thrive. He has demonstrated that he can feed himself. Weight loss may be related to his multiple abdominal surgeries. No evidence of suspicious findings concern for cancer. (5) Adult failure to thrive: Code(s): R62.7 - Adult failure to thrive Status: Acute Assessment and Plan: (6) Malnutrition: Code(s): E46 - Unspecified protein-calorie malnutrition Status: Acute Assessment and Plan: Discussed with dietary who recommended vitamins. Continue Multivitamin, Thiamine and B complex. (7) Colostomy in place: Code(s): Z93.3 - Colostomy status Status: Acute (8) Rheumatoid arthritis: Code(s): M06.9 - Rheumatoid arthritis, unspecified Status: Acute Assessment and Plan: steroids. (9) Ankylosing spondylitis: Code(s): M45.9 - Ankylosing spondylitis of unspecified sites in spine Status: Acute Assessment and Plan: As above Plan DVT prophylaxis. GI prophylaxis. All records reviewed Discussed plan of care with the nursing staff and with the patient in detail. Answered all questions and concerns from the patient. All labs have been reviewed. Code status updated dictation may have been done utilizing a voice recognition system. Attempts have been made to correct errors. However, there may be uncorrected grammatical, spelling, and recognition errors present. Subjective Date/time seen: 06/30/22 12:33 Interval history: No new complaints Exam Const: General: comfortable HENMT: Ears: TM's normal bilaterally Eyes: General: appearance normal, both eyes and all related structures Neck: Neck: supple and no JVD Resp: Effort & Inspection: normal respiratory effort Cardio: Rate: regular rate Rhythm: regular rhythm GI: GI Palp: Yes Soft to palpation, No Firmness to palpation present (GI), No Tenderness to palpation present (GI), No Guarding due to palpation present (GI) and No Hernia present Auscultation: normal bowel sounds Skin: General skin exam: normal color Neuro: Speech: normal speech Sensory Exam: normal sensation Extrem: General: normal to inspection Psych: Mental Status: mental status grossly normal Objective Data Vital Signs Vital Signs: Vital Signs - 24 hr 06/29/22 22:13 06/29/22 20:00 06/30/22 06:19 Temperature 37.3 C 36.9 C Pulse Rate 60 60 75 Respiratory Rate 18 18 18 Blood Pressure 115/67 125/68 Pulse Oximetry 100 100 99 Oxygen Delivery Room Air 06/30/22 08:50 Temperature Pulse Rate Respiratory Rate Blood Pressure Pulse Oximetry Oxygen Delivery Room Air Intake/Output Intake/Output: Intake & Output 06/27/22 06/28/22 06/29/22 06/30/22 23:59 23:59 23:59 23:59 Intake Total 2050 300 0 426 Output Total 976 500 925 650 Balance 1074 -200 -925 -224 Meds/Results Medications: Active Medications Generic Name Dose Route Start Last Admin Trade Name Freq PRN Reason Stop Dose Admin
[2022-06-30 13:59] VITALS: BP 109/73; PULSE 69; RESP 20; TEMP 36.2; O2SAT 99
[2022-06-30] MEDS: polyethylene glycoL 3350 17 GM POWD.PACK FEED TUBE (17:45)
[2022-06-30] MEDS: POTASSIUM CHLORIDE 20 MEQ PACKET (FOR LIQUID) 40 MEQ PO (17:45)
[2022-06-30 20:35] VITALS: PULSE 61; RESP 18; O2SAT 98
[2022-06-30] MEDS: QUEtiapine FUMARATE 12.5 MG TABLET FEED TUBE (21:04)
[2022-06-30 22:00] VITALS: BP 104/57; PULSE 61; RESP 18; TEMP 36.1; O2SAT 98
[2022-07-01 05:13] VITALS: BP 105/64; PULSE 70; RESP 18; TEMP 36.6; O2SAT 96
--- NOTE | 2022-07-01 08:54 | PCRCNOTE ---
Pt refused 0800 MDI tx, and refused to do IS exercise. Nurse informed of refusal.
--- NOTE | 2022-07-01 09:08 | PCNFU ---
Nutrition Follow-Up Complete: Severe malnutrition related to environmental factors of self-feeding difficulty, not getting assistance with meals and prison; and swallowing issues as evidenced by social circumstances and swallow report, Weight loss -19%/1 year, severe muscle wasting and fat loss. Goal: Adequate PO intake at least 75% meals - Not able to meet goal Tolerate tube feeding at goal rate - Meeting goal Pt current nutrition is Jevity 1,5 @ 45 ml/h: 1485 kcal, 63 g protein, 1350 ml free water including flushes. Flushes 100 ml q 4 hours. Nutrition recommendation: Continue current tube feeding regimen and flushes Last recorded weight is 46.7 kg. Weight loss: -7.5 lb/2 weeks: 7%/2 weeks - significant weight loss Bowel Motility: No bowel movement in colostomy yet. Bowel sounds hypoactive. Abdomen is soft and flat Labs Reviewed: K+ 3.3, BUN 8, Creat 0.4, PO4 2.2 Meds Noted: [place], thiamine, folic acid, MV/MN, B complex, Zofran, miralax, Lasix Skin: WNL Additional Notes: Tolerating tube feeding. Had some nausea and vomited but RN found an empty milk container under the covers, that the brother had brought in. Tube feeding restarted, residuals are minimal. Continue current orders Monitor intakes, weights, plan of care. Follow up Monday/Monday
[2022-07-01] MEDS: polyethylene glycoL 3350 17 GM POWD.PACK FEED TUBE (09:15)
[2022-07-01] MEDS: HYDROcodone/acetaminophen (*CRX) 10-325 MG TABLET 1 TAB FEED TUBE ×2 (09:15→21:26)
[2022-07-01] MEDS: ONDANSETRON INJ 4 MG/2 ML VIAL IV PUSH (09:15)
[2022-07-01] MEDS: MAGNESIUM OXIDE 200 MG TABLET 600 MG FEED TUBE (09:16)
[2022-07-01] MEDS: HYDROCORTISONE SODIUM SUCCINATE 100 MG/2 ML VIAL 25 MG IV PUSH ×2 (09:16→21:28)
[2022-07-01] MEDS: PANTOPRAZOLE SODIUM IV 40 MG VIAL IV PUSH (09:16)
[2022-07-01] MEDS: ENOXAPARIN 40 MG/0.4 ML SYRINGE SUB-Q (09:17)
[2022-07-01] MEDS: FOLIC ACID 1 MG TABLET 2 MG FEED TUBE (09:17)
[2022-07-01] MEDS: THERAPEUTIC MULTIVITAMINS/MINERALS TAB (*BKC) 1 TABLET FEED TUBE (09:17)
[2022-07-01] MEDS: BACLOFEN 5 MG TABLET FEED TUBE ×3 (09:17→17:00)
[2022-07-01] MEDS: CELECOXIB 200 MG CAPSULE FEED TUBE ×2 (09:17→17:00)
[2022-07-01] MEDS: THIAMINE HCL 100 MG TABLET FEED TUBE ×2 (09:17→17:00)
[2022-07-01 09:59] LABS: Hematocrit 34.6 % (42.0-52.0); Hemoglobin 10.4 g/dL (14.0-18.0); Mean Corpuscular HGB Conc 30.1 g/dl (32-36); Mean Corpuscular Hemoglobin 26.9 pg (26-34); Mean Corpuscular Volume 89.4 fl (80-100); Mean Platelet Volume 9.9 fl (7.4-10.4); Platelet Count Result 313 k/mm3 (150-375); Red Blood Count 3.87 M/mm3 (4.6-6.20); Red Cell Distribution Width 16.9 % (11.5-14.5); White Blood Count 8.8 K/mm3 (4.5-10.0)
[2022-07-01 10:30] LABS: Alanine Aminotransferase 12 U/L (6-50); Albumin Level 3.5 g/dL (3.5-5.1); Alkaline Phosphatase 79 U/L (38-126); Anion Gap 8 mmol/L (8-16); Aspartate Amino Transferase 18 U/L (17-59); Bilirubin,Total 0.5 mg/dL (0.2-1.3); Blood Urea Nitrogen 13 mg/dL (9-20); Calcium 8.5 mg/dL (8.4-10.2); Carbon Dioxide 28 mmol/L (22-30); Chloride 107 mmol/L (98-107); Estimated CRCL calculation 109 ml/min; Estimated Glomerular Filt Rate > 60; Glucose 116 mg/dL (65-110); Potassium 4.2 mmol/L (3.4-5.0); Sodium 143 mmol/L (137-145)
--- NOTE | 2022-07-01 10:59 | PM.IMPN ---
Progress Note: A&P Assessment and Plan (1) Dysphagia: Code(s): R13.10 - Dysphagia, unspecified Status: Acute Assessment and Plan: patient had a PEG tube in place. No bowel movement yet. KUB shows gas pattern no obstruction. Left a message for the surgeon to discuss the case (2) Flexion contractures: Code(s): M24.50 - Contracture, unspecified joint Status: Acute Assessment and Plan: Flexion contractures related to ankylosing spondylitis and rheumatoid arthritis. Despite his debility, he is able to the feed himself. (3) Malnutrition: Code(s): E46 - Unspecified protein-calorie malnutrition Status: Acute Assessment and Plan: Discussed with dietary who recommended vitamins. Continue Multivitamin, Thiamine and B complex. (4) Colostomy in place: Code(s): Z93.3 - Colostomy status Status: Acute Plan DVT prophylaxis. GI prophylaxis. All records reviewed Discussed plan of care with the nursing staff and with the patient in detail. Answered all questions and concerns from the patient. All labs have been reviewed. Code status updated dictation may have been done utilizing a voice recognition system. Attempts have been made to correct errors. However, there may be uncorrected grammatical, spelling, and recognition errors present. Time Spent With Patient Time with patient: 25 - 35 minutes Subjective Date/time seen: 07/01/22 10:59 Interval history: Patient doing well no new complaints Review of Systems Review of Systems: All systems reviewed & are unremarkable except as noted in HPI and below Exam Const: General: comfortable HENMT: Ears: TM's normal bilaterally Eyes: General: appearance normal, both eyes and all related structures Sclera: sclerae normal Neck: Neck: supple and no JVD Resp: Effort & Inspection: normal respiratory effort Auscultation: clear to auscultation bilaterally Cardio: Rate: regular rate GI: GI Palp: Yes Soft to palpation, No Tenderness to palpation present (GI), No Guarding due to palpation present (GI) and No Hernia present Auscultation: normal bowel sounds Other: PEG tube placed Extrem: General: normal to inspection Objective Data Vital Signs Vital Signs: Vital Signs - 24 hr 06/30/22 13:59 06/30/22 22:00 06/30/22 20:35 Temperature 36.2 C L 36.1 C L Pulse Rate 69 61 61 Respiratory Rate 20 18 18 Blood Pressure 109/73 104/57 L Pulse Oximetry 99 98 98 Oxygen Delivery Room Air 07/01/22 05:13 Temperature 36.6 C Pulse Rate 70 Respiratory Rate 18 Blood Pressure 105/64 Pulse Oximetry 96 Oxygen Delivery Intake/Output Intake/Output: Intake & Output 06/28/22 06/29/22 06/30/22 07/01/22 23:59 23:59 23:59 23:59 Intake Total 300 0 1119 0 Output Total 670 862 1281 Balance -200 -925 -131 0 Meds/Results Medications: Active Medications Generic Name Dose Route Start Last Admin Trade Name Freq PRN Reason Stop Dose Admin Acetaminophen 650 mg 06/25/22 12:37 06/25/22 13:33 Acetaminophen Elixir 325 Mg/10.15 Ml Udc FEED TUBE 650 mg Q6H PRN Administration Mild Pain (1-3) or Fever Hydrocodone Bitart/Acetaminophen 1 tab 06/21/22 14:43 07/01/22 09:15 Hydrocodone/Acetaminophen (*Crx) 10-325 Mg Tablet FEED TUBE 1 tab Q6H PRN Administration Pain Rated 7-10 Albuterol 1 puff 06/19/22 12:35 06/20/22 10:09 Albuterol Sulfate (*Sp) Aerosol 1 Puff INHALATION 1 puff Q4H PRN Administration Shortness Of Breath Baclofen 5 mg 06/21/22 17:00 07/01/22 09:17 Baclofen 5 Mg Tablet FEED TUBE 5 mg TID CELIA Administration Celecoxib 200 mg 06/21/22 17:00 07/01/22 09:17 Celecoxib 200 Mg Capsule FEED TUBE 200 mg BIDWM CELIA Administration Enoxaparin Sodium 40 mg 06/23/22 09:00 07/01/22 09:17 Enoxaparin 40 Mg/0.4 Ml Syringe SUB-Q 40 mg DAILY CELIA Administration Folic Acid 2 mg 06/22/22 09:00 07/01/22 09:17
[2022-07-01 14:00] VITALS: BP 101/62; PULSE 69; RESP 18; TEMP 36.4; O2SAT 99
[2022-07-01] MEDS: ALPRAZolam (*CRX) 0.25 MG TABLET PO (15:06)
[2022-07-01 20:05] VITALS: PULSE 69; RESP 18; O2SAT 99
[2022-07-01] MEDS: QUEtiapine FUMARATE 12.5 MG TABLET FEED TUBE (21:29)
[2022-07-01 21:31] VITALS: BP 93/45; PULSE 63; RESP 16; TEMP 36.1; O2SAT 100
[2022-07-01 22:18] VITALS: PULSE 79; RESP 18
[2022-07-01] MEDS: FLUTICASONE/SALMETEROL 115-21 MCG INHALER 1 PUFF 2 PUFF INHALATION (22:18)
[2022-07-02 06:00] VITALS: BP 99/52; PULSE 69; RESP 16; TEMP 36.4; O2SAT 97
[2022-07-02 08:24] LABS: Hematocrit 35.4 % (42.0-52.0); Hemoglobin 10.7 g/dL (14.0-18.0); Mean Corpuscular HGB Conc 30.2 g/dl (32-36); Mean Corpuscular Hemoglobin 27.3 pg (26-34); Mean Corpuscular Volume 90.3 fl (80-100); Mean Platelet Volume 10.1 fl (7.4-10.4); Platelet Count Result 306 k/mm3 (150-375); Red Blood Count 3.92 M/mm3 (4.6-6.20); Red Cell Distribution Width 16.8 % (11.5-14.5); White Blood Count 9.7 K/mm3 (4.5-10.0)
[2022-07-02 08:26] VITALS: BP 97/51; PULSE 88; RESP 18; TEMP 37.1; O2SAT 100
[2022-07-02] MEDS: FLUTICASONE/SALMETEROL 115-21 MCG INHALER 1 PUFF 2 PUFF INHALATION (08:31)
[2022-07-02 08:32] VITALS: PULSE 80; RESP 20
[2022-07-02] MEDS: HYDROCORTISONE SODIUM SUCCINATE 100 MG/2 ML VIAL 25 MG IV PUSH (08:45)
[2022-07-02] MEDS: ENOXAPARIN 40 MG/0.4 ML SYRINGE SUB-Q (08:45)
[2022-07-02] MEDS: MAGNESIUM OXIDE 200 MG TABLET 600 MG FEED TUBE (08:45)
[2022-07-02] MEDS: PANTOPRAZOLE SODIUM IV 40 MG VIAL IV PUSH (08:45)
[2022-07-02] MEDS: THIAMINE HCL 100 MG TABLET FEED TUBE (08:46)
[2022-07-02] MEDS: THERAPEUTIC MULTIVITAMINS/MINERALS TAB (*BKC) 1 TABLET FEED TUBE (08:46)
[2022-07-02] MEDS: traZODone HCL 50 MG TABLET FEED TUBE (08:46)
[2022-07-02] MEDS: ALPRAZolam (*CRX) 0.25 MG TABLET PO (08:46)
[2022-07-02] MEDS: BACLOFEN 5 MG TABLET FEED TUBE ×2 (08:46→13:01)
[2022-07-02] MEDS: VITAMIN B COMPLEX CAPSULE 1 CAP FEED TUBE ×2 (08:46→13:02)
[2022-07-02] MEDS: CELECOXIB 200 MG CAPSULE FEED TUBE (08:46)
[2022-07-02] MEDS: FOLIC ACID 1 MG TABLET 2 MG FEED TUBE (08:46)
[2022-07-02 08:47] VITALS: PULSE 83; RESP 18
[2022-07-02 08:49] LABS: Alanine Aminotransferase 11 U/L (6-50); Albumin Level 3.5 g/dL (3.5-5.1); Alkaline Phosphatase 84 U/L (38-126); Anion Gap 8 mmol/L (8-16); Aspartate Amino Transferase 17 U/L (17-59); Bilirubin,Total 0.4 mg/dL (0.2-1.3); Blood Urea Nitrogen 14 mg/dL (9-20); Calcium 8.7 mg/dL (8.4-10.2); Carbon Dioxide 28 mmol/L (22-30); Chloride 104 mmol/L (98-107); Estimated CRCL calculation 107 ml/min; Estimated Glomerular Filt Rate > 60; Glucose 114 mg/dL (65-110); Potassium 4.1 mmol/L (3.4-5.0); Sodium 140 mmol/L (137-145)
[2022-07-02 11:18] VITALS: BP 82/50; PULSE 63; RESP 16; TEMP 37.2; O2SAT 97
[2022-07-02 11:20] VITALS: BP 91/58
[2022-07-02 11:27] LABS: EDCOVIDSCREEN Negative (Negative)
--- NOTE | 2022-07-02 12:29 | PM.DS ---
DS: Admitting Diagnosis Discharge Date 07/02/2022 Admitting Diagnosis failure to thrive DS: Discharge Diagnosis Discharge Diagnosis (1) Dysphagia: Code(s): R13.10 - Dysphagia, unspecified Status: Acute (2) Rheumatoid arthritis: Code(s): M06.9 - Rheumatoid arthritis, unspecified Status: Acute (3) Ankylosing spondylitis: Code(s): M45.9 - Ankylosing spondylitis of unspecified sites in spine Status: Acute (4) Weight loss: Code(s): R63.4 - Abnormal weight loss Status: Acute (5) Malnutrition: Code(s): E46 - Unspecified protein-calorie malnutrition Status: Acute (6) Colostomy in place: Code(s): Z93.3 - Colostomy status Status: Acute (7) Flexion contractures: Code(s): M24.50 - Contracture, unspecified joint Status: Acute DS: Summary Hospital Course Hospital Course: patient is a 57-year-old male from a local [facility] was sent to the hospital evaluation feet loss. Patient was evidently noted to have cough and difficulty swallowing he has been wasting away. Has chronic pain issues and medication dependency. Speech therapy evaluated the patient and recommended that patient would need a feeding tube. Surgeons were called in feeding he was placed patient tolerating feeding well. KUB was done no signs of obstruction patient is cleared for discharge patient will continue with palliative care at the [facility] discharge instructions given patient's electrolytes are normal on discharge potassium 4.1 Status at Discharge Overall status at discharge: patient is back to baseline Time Spent with Patient Time attestation: Total time spent providing and/or coordinating discharge services: Exam Narrative: GENERAL: Well appearing, well-nourished, non-toxic, in no acute distress. HEAD: Normocephalic, atraumatic. NECK: Supple. No adenopathy, no masses. RESPIRATORY: Airway patent, respirations nonlabored. Clear to auscultation bilaterally, no rales, rhonchi, wheezing. CARDIOVASCULAR: Regular rate and rhythm without murmurs, rubs, or gallops. Peripheral pulses 2+ and equal bilaterally. ABDOMINAL: Soft, nontender, nondistended, no hepatosplenomegaly. Normoactive BS. has PEG tube placed MUSCULOSKELETAL: no Epigastric and no hypochondrial tenderness contractures upper and lower extremities SKIN: Warm, dry, normal color. No rashes. NEURO: A&O X3. Moves all extremities PSYCHIATRIC: Appropriate mood and affect. Normal interaction. DS: Data Data Completed and Pending Labs on day of discharge: Labs from last 24 hours 07/02/22 07/02/22 07/02/22 10:55 08:09 08:09 WBC 9.7 RBC 3.92 L Hgb 10.7 L Hct 35.4 L MCV 90.3 MCH 27.3 MCHC 30.2 L RDW 16.8 H Plt Count 306 MPV 10.1 Sodium 140 Potassium 4.1 Chloride 104 Carbon Dioxide 28 Anion Gap 8 BUN 14 Creatinine 0.40 L Estim Creat Clear Calc 107 Estimated GFR > 60 Glucose 114 H Calcium 8.7 Total Bilirubin 0.4 AST 17 ALT 11 Alkaline Phosphatase 84 Total Protein 7.0 Albumin 3.5 SARS-CoV-2 IgG/IgM Ag?Rapid Negative Discharge Plan Discharge Consulting providers: Abelardo Malone ; Carlos Rene Discharging Clinician: Delfino Dowell Patient Disposition: SNF Activity: as tolerated Diet: tube feeding and other - see discharge instructions Discharge Instructions: Care Coordination: Patient requests [facility] Palliative services once at facility. They can be reached at [phone] or [phone]. Their fax number is [phone]. Patient Instructions: Failure to Thrive (GEN), Pain Management (DC), Tube Feeding (GEN), Nasogastric Tube (GEN), Dysphagia (GEN) Stand Alone Forms: General Discharge Information Discharge Medications: Continued hydrocodone-acetaminophen 10-325 mg tablet 1 tablet PO Q6H PRN (Reason: pain) Qty: 1 0RF celecoxib 200 mg Capsule 2
--- NOTE | 2022-07-02 13:18 | PCSTNOTE ---
Attempted to see patient for speech therapy, he was talking to brother on the phone and did not wish to participate at that time.
[2022-07-02] MEDS: ACETAMINOPHEN ELIXIR 325 MG/10.15 ML UDC 650 MG FEED TUBE (13:38)
== END 2022-07-02 14:37 | DRG 641 ==
LOC: ANHED 04:23 → ANH3MEDSUR 04:55
PROVIDERS: Hospitalist; Internal Medicine; Surgery; Admitting Provider Internal Medicine; Emergency Provider Emergency Medicine; PCP Family Medicine; Visit Provider Internal Medicine
PROC: 0DH60UZ Insertion of Feeding Device into Stomach, Open Approach (ICD-10-PCS; CPT 49440; principal; 2022-06-27 14:30)
DX: R63.4 Abnormal weight loss (principal); E46 Unspecified protein-calorie malnutrition; Z68.1 Body mass index [BMI] 19.9 or less, adult; R13.10 Dysphagia, unspecified; Z20.822 Contact with and (suspected) exposure to COVID-19; K21.9 Gastro-esophageal reflux disease without esophagitis; G89.29 Other chronic pain; M24.59 Contracture, other specified joint; M45.9 Ankylosing spondylitis of unspecified sites in spine; M06.9 Rheumatoid arthritis, unspecified; F25.9 Schizoaffective disorder, unspecified; R62.7 Adult failure to thrive; R53.81 Other malaise; F17.210 Nicotine dependence, cigarettes, uncomplicated; Z74.01 Bed confinement status; Z79.899 Other long term (current) drug therapy; Z93.3 Colostomy status
CPT/HCPCS: 36415; 51701; 70450; 71045; 73502; 74018; 74177; 80048; 80053; 80069; 81001; 82948; 83690; 83735; 84100; 84145; 84484; 85025; 85027; 85610; 85730; 87426; 92526; 92610; 92611; 93005; 94640; 96360; 99285; A9270; C9113; C9803; J0131; J1170; J1650; J1720; J2270; J2405; J2704; J3010; J3480; J7030; J7040; J7120; Q9967; U0003; U0005

== ENCOUNTER 2022-07-22 20:15 | Emergency (ER) | payer MEDICARE, MEDICAID, SELFPAY ==
--- NOTE | ~2022-07-22 | CT_ITS ---
EXAMINATION: CT abdomen pelvis w con DATE: 07/22/2022 21:24 INDICATION: Postoperative abdominal pain for 3 days TECHNIQUE: Computed tomography (CT) of the abdomen and pelvis was performed with 100 cc Omnipaque 350 intravenous contrast. The dose-length product was 311.01 mGy-cm. Automated exposure control and iterative reconstruction technique were employed. COMPARISON: CT dated 06/19/2022. FINDINGS: Persistent bilateral tree-in-bud interstitial infiltrates of the lower lobes, most likely i nfectious. Heart size normal. No significant pleural or pericardial effusion. There is a G-tube prese nt. The liver, spleen, pancreas, and kidneys are unremarkable. There is a nonobstructing right renal ston e measuring 4-5 mm. Nonobstructive bowel pattern. Bladder is grossly unremarkable. There is advanced polyarticular osteoarthritis, most advanced at the right hip. There is atherosclerosis of the aorta w ithout evidence for aneurysm. There is moderate debris throughout the bowel. No definite identifiable extraluminal fluid collection is identified. No free air is identified. Small amount of gas noted in the anterior abdominal wall soft tissues, likely related to recent surgery. 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 IMPRESSION: 1. Persistent interstitial infiltrate with tree-in-bud configuration in the lower lobes, most likely infectious. 2: Nonobstructing right nephrolithiasis. Reviewed, dictated and finalized at location [facility]. [facility] OFFICIAL IMPRESSION: 1. Persistent interstitial infiltrate with tree-in-bud configuration in the low er lobes, most likely infectious. 2: Nonobstructing right nephrolithiasis.
[2022-07-22 20:18] VITALS: BP 118/83; PULSE 60; RESP 18; O2SAT 100
[2022-07-22] MEDS: SODIUM CHLORIDE 0.9% IV 1,000 ML 999 ML IV CONT (20:33)
[2022-07-22 20:48] LABS: Basophils Percent Auto 0.5 % (0.2-1.2); Eosinophils Absolute Auto 0.4 K/mm3 (0-0.3); Eosinophils Percent Auto 4.5 % (0-4.4); Hematocrit 36.2 % (42.0-52.0); Hemoglobin 11.1 g/dL (14.0-18.0); Immature Granulocyte Absolute 0.03 K/mm3 (0.00-0.031); Immature Granulocyte Percent A 0.4 % (0-0.5); Lymphocytes Absolute Auto 1.34 K/mm3 (0.9-3.2); Lymphocytes Percent Auto 17.2 % (18.3-44.2); Mean Corpuscular HGB Conc 30.7 g/dl (32-36); Mean Corpuscular Hemoglobin 27.8 pg (26-34); Mean Corpuscular Volume 90.5 fl (80-100); Mean Platelet Volume 10.5 fl (7.4-10.4); Monocytes Absolute Auto 0.3 K/mm3 (0.1-0.6); Neutrophils Absolute Auto 5.7 K/mm3 (1.3-6.7); Neutrophils Percent Auto 73.4 % (45.5-73.1); Platelet Count Result 252 k/mm3 (150-375); Red Cell Distribution Width 17.2 % (11.5-14.5); White Blood Count 7.8 K/mm3 (4.5-10.0)
--- NOTE | 2022-07-22 20:53 | ECG_ITS ---
Measurements Intervals King Rate: 59 P: 84 CO: 159 QRS: 84 QRSD: 90 T: 81 QT: 406 QTc: 404 Interpretive Statements SINUS BRADYCARDIA WITH SINUS ARRHYTHMIA VOLTAGE CRITERIA FOR LVH [MEETS CRITERIA IN ONE OF: R(aVL), S(V1), R(V5), R(V5/V6)+S(V1)] COMPARED TO ECG 06/19/2022 00:43:13 HEART RATE IS REDUCED NO OTHER SIGNIFICANT CHANGE Electronically Signed On 07-23-2022 8:34:41 MANAGER PSYCHOLOGY by Michael Driver M.D.
--- NOTE | 2022-07-22 20:56 | ED.ABDPAIN ---
HPI - Abdominal Pain General Chief Complaint: Abdominal Pain Stated Complaint: ABDOMINAL PAIN, G-TUBE PROBLEM, SOB History of Present Illness HPI narrative: Patient is a 57-year-old male who presents ER with abdominal pain. Reports in his upper abdomen. Recently underwent open gastrostomy placement. He has pus draining from his upper abdominal incision as well as from around his G-tube site. No overt cellulitis. Patient is a poor historian given his schizoaffective disorder. Surgeries were performed by Dr. Rene. As per EMS patient's O2 sat was in the 80s when they picked him up however [facility] had reported patient with normal pulse oximeter at the facility. Patient does seem to have some poor perfusion to his hands Related Data Home Medications Medication Instructions Recorded Confirmed Vitamin D2 50,000 units PO WEEKLY 06/12/22 06/19/22 baclofen 5 mg tablet 5 mg PO TID 06/12/22 06/19/22 budesonide-formoterol HFA 160 2 puff inhalation BID 06/12/22 06/19/22 mcg-4.5 mcg/actuation aerosol inhaler (Symbicort) celecoxib 200 mg capsule 200 mg PO BID 06/12/22 06/19/22 folic acid 1 mg tablet 2 mg PO DAILY 06/12/22 06/19/22 food supplemt, lactose-reduced 1 ea PO TID 06/12/22 06/19/22 (Ensure oral liquid) furosemide 20 mg tablet (Lasix) 20 mg PO DAILY 06/12/22 06/19/22 magnesium 200 mg tablet 600 mg PO DAILY 06/12/22 06/19/22 omeprazole 20 mg capsule,delayed 20 mg PO DAILY 06/12/22 06/19/22 release prednisone 5 mg tablet 7.5 mg PO DAILY 06/12/22 06/19/22 acetaminophen 650 mg tablet 650 mg PO BID PRN Fever Or Pain 06/19/22 06/19/22 albuterol 90 mcg/actuation aerosol 90 mcg inhalation Q4-5H PRN 06/19/22 06/19/22 inhaler Shortness Of Breath hydroxyzine HCl 25 mg tablet 25 mg PO TID PRN Itching 06/19/22 06/19/22 meclizine 12.5 mg tablet 25 mg PO TID PRN dizziness 06/19/22 06/19/22 polyethylene glycol 3350 17 17 g PO TID PRN Constipation 06/19/22 06/19/22 gram/dose oral powder (Miralax) Allergies Allergy/AdvReac Type Severity Reaction Status Date / Time cephalexin [From Keflex] Allergy Swelling Verified 06/12/22 06:20 of Lip/Tongue/Throat Cephalosporins Allergy Unknown Verified 06/19/22 05:20 diazepam [From Valium] Allergy Depression Verified 06/12/22 06:20 peanut Allergy Other Verified 06/12/22 06:20 Sulfa (Sulfonamide Allergy Swelling Verified 06/12/22 06:20 Antibiotics) of Lip/Tongue/Throat Review of Systems Review of Systems: ROS unobtainable: Yes unobtainable due to mental status PMFSH Past Medical History Medical History Ankylosing spondylitis Chronic pain History of gastroesophageal reflux (GERD) Malnutrition Rheumatoid arthritis Schizoaffective disorder Tobacco abuse Surgical History Surgical History History of colon resection History of colostomy History of orthopedic surgery Family History Family History Other Heart disease Liver disease Lung cancer Lymphoma Social History Social History Smoking status: Current every day smoker Tobacco type: cigarettes Alcohol intake: former Substance use: former Substance use type: marijuana Last use: Has not used alcohol or marijuana since becoming a resident of the [place] Gender identity (if verbalized by the patient): Male Spiritual care concerns: No Exam Narrative: GENERAL: Chronically ill-appearing and malnourished, no acute distress. HEAD: Normocephalic, atraumatic. EYES: PERRL and EOMI. ENT: Dry cracked lips with dry mucous membranes. NECK: Supple. CHEST: Clear to auscultation. No respiratory distress. HEART: Regular rate and rhythm. Normal peripheral pulses. ABDOMEN: Soft, moderately tender palpation to epigastrium, nondistended. Midline abdominal wound with purulence
[2022-07-22 21:00] LABS: Lactic Acid Reflex 1.2 mmol/L (0.7-2.0)
[2022-07-22 21:01] LABS: Alanine Aminotransferase 12 U/L (6-50); Albumin Level 3.5 g/dL (3.5-5.1); Alkaline Phosphatase 87 U/L (38-126); Anion Gap 3 mmol/L (8-16); Aspartate Amino Transferase 21 U/L (17-59); Bilirubin,Total 0.5 mg/dL (0.2-1.3); Blood Urea Nitrogen 17 mg/dL (9-20); Calcium 8.9 mg/dL (8.4-10.2); Carbon Dioxide 35 mmol/L (22-30); Chloride 100 mmol/L (98-107); Estimated Glomerular Filt Rate > 60; Glucose 87 mg/dL (65-110); Lipase 29 U/L (23-300); Potassium 4.3 mmol/L (3.4-5.0); Sodium 138 mmol/L (137-145)
[2022-07-22 22:28] VITALS: BP 117/87; PULSE 57; RESP 16; O2SAT 100
[2022-07-22 23:08] VITALS: BP 113/67; O2SAT 100
[2022-07-23] MEDS: levoFLOXacin 750 MG TABLET FEED TUBE (00:06)
[2022-07-23] MEDS: Acetaminophen/HYDROcodone ELIXIR (*CRX) 7.5 MG/15 ML UDC FEED TUBE (03:33)
== END 2022-07-23 03:58 ==
PROVIDERS: Emergency Provider Emergency Medicine; PCP Family Medicine
DX: T81.31XA Disruption of external operation (surgical) wound, not elsewhere classified, initial encounter (principal); J18.9 Pneumonia, unspecified organism; M06.9 Rheumatoid arthritis, unspecified; K21.9 Gastro-esophageal reflux disease without esophagitis; F25.9 Schizoaffective disorder, unspecified; Z90.49 Acquired absence of other specified parts of digestive tract; Z93.3 Colostomy status; Z93.1 Gastrostomy status; F17.210 Nicotine dependence, cigarettes, uncomplicated; N20.0 Calculus of kidney; R00.1 Bradycardia, unspecified
CPT/HCPCS: 36415; 74177; 80053; 83605; 83690; 85025; 93005; 96360; 99284; A9270; J7030; Q9967